=== PATIENT | male | born 1955 | race Caucasian/White ===

== ENCOUNTER → 2020-12-08 | Outpatient (CLI) | payer MEDICARE, BC ==
[2020-12-08 14:01] LABS: Basophils % (A) 0 %; Eosinophils # (A) 0.2 k/uL (0-0.7); Eosinophils % (A) 3 %; HCT 44.2 % (39.0-53.0); HGB 14.5 gm/dL (13.0-17.5); Lymphocytes % (A) 17 %; MCH 30.2 pg (25.0-35.0); MCHC 32.7 g/dL (31.0-37.0); MCV 92.3 fL (80.0-100.0); Mean Platelet Volume 8.9; Monocytes # (A) 0.5 k/uL (0-1.0); Monocytes % (A) 8 %; Neutrophils # (A) 4.3 k/uL (1.3-7.7); Neutrophils % (A) 69 %; Platelet Count 189 k/uL (150-450); RBC 4.79 m/uL (4.30-5.90); RDW 13.5 % (11.5-15.5); WBC 6.2 k/uL (3.8-10.6)
[2020-12-08 14:02] LABS: ALT 29 U/L (4-49); AST 32 U/L (17-59); African American GFR (CKD) >90 (>60 ml/min/1.73 sqM); Albumin 4.3 g/dL (3.5-5.0); Alkaline Phosphatase 128 U/L (38-126); Anion Gap 9 mmol/L; Blood Urea Nitrogen 9 mg/dL (9-20); Calcium 9.9 mg/dL (8.4-10.2); Carbon Dioxide 29 mmol/L (22-30); Chloride 101 mmol/L (98-107); Glucose 112 mg/dL (74-99); Non-African American GFR(CKD) 87 (>60 ml/min/1.73 sqM); Potassium 5.4 mmol/L (3.5-5.1); Sodium 139 mmol/L (137-145); Total Protein 7.6 g/dL (6.3-8.2)
[2020-12-08 14:39] LABS: Cholesterol 183 mg/dL (<200); HDL Cholesterol 45 mg/dL (40-60); LDL Cholesterol,Calculated 126 mg/dL (0-99); Triglycerides 59 mg/dL (<150)
--- NOTE | 2020-12-08 14:39 | CT ---
EXAMINATION TYPE: CT chest w con DATE OF EXAM: 12/08/2020 COMPARISON: NONE HISTORY: Abnormal chest xray and shortness of breath upon exertion. Hx of renal cell cancer. CT DLP: 288.1 mGycm. Automated Exposure Control for Dose Reduction was Utilized. TECHNIQUE: CT scan of the thorax is performed following with IV Contrast, patient injected with 100m l mL of Isovue 300. FINDINGS: LUNGS: There is background Mild to moderate underlying emphysematous change. There is small left pleu ral effusion. There is tiny right pleural effusion. There is right-sided volume loss with abrupt occl usion of the bronchus intermedius coronal image 52 corresponding to axial image 29. Distal to this th ere is heterogeneous soft tissue encasing the right lower lobe medial arterial branch with posterior- inferior extensive atelectatic change. There is suspected obstructing endobronchial mass. There is ab normal soft tissue encasing the mid to distal esophagus axial image 30 extending to the right margin of the descending thoracic aorta. Small air-fluid level in the esophagus image 33 noted. Suspect flui d trapped in the shoulder or pseudomass posterior right lower lung coronal image 68 measuring 5.5 x 2 .9 cm. Small posterior right apical pleural fluid collection. Moderate to severe right apical pleural /parenchymal scarring or scarlike lesion measuring 3.5 x 1.6 cm axial image 12. MEDIASTINUM: There are prominent but subcentimeter left hilar lymph nodes. No abnormal mediastinal adenopathy at or above the jennifer No pericardial effusion is seen. Cardiomegaly. Coronary artery lacie cification. OTHER: Nonspecific slight thickening to both adrenal glands. There is 5 mm calculus lower pole right kidney axial image 67 partially imaged. Osseous structures are demineralized with underlying scoliosi s. Mild to moderate chronic compression type fractures at T9 and T6 levels. IMPRESSION: Right-sided volume loss with abrupt bronchus intermedius occlusion, obstructing endobronc hial mass or neoplasm needs to be strongly considered. There may be mediastinal invasion surrounding portions of the esophagus or continuity of primary esophageal lesion or neoplasm. Former is favored. Background mild to moderate underlying emphysematous change. Small to tiny bilateral pleural fluid c ollections. Underlying cardiomegaly. Further investigation with PET CT and/or bronchoscopy for tissue sampling is advised.
[2020-12-08 23:57] LABS: Prostate Specific Antigen 2.3 ng/mL (0.0-4.5)
== END ==
LOC: RADCTMAIN 13:27
PROVIDERS: ATTEND Nurse Practitioner
DX: Z08 Encounter for follow-up examination after completed treatment for malignant neoplasm (principal); Z85.118 Personal history of other malignant neoplasm of bronchus and lung; Z85.53 Personal history of malignant neoplasm of renal pelvis; J43.9 Emphysema, unspecified; J90 Pleural effusion, not elsewhere classified; I51.7 Cardiomegaly; R07.89 Other chest pain
CPT/HCPCS: 84153; 80061; 80053; 84443; 85025; 71260; Q9967

== ENCOUNTER → 2020-12-16 | Outpatient (CLI) | payer MEDICARE, BC ==
--- NOTE | 2020-12-18 08:43 | PE ---
EXAMINATION TYPE: PET CT fusion skull to thigh DATE OF EXAM: 12/16/2020 COMPARISON: Chest CT December 08, 2020 HISTORY: History of right lung cancer treated [address] TECHNIQUE: Following the intravenous administration of 10.97 mCi of F-18 FDG, whole body images are performed from the skull base to the midthigh. Images are reviewed on the computer in the coronal, a xial, and sagittal planes. Reconstructed rotating images are created on independent workstation and reviewed on the computer. A localization and attenuation correction CT is performed in conjunction with the PET scan. Blood glucose level equals 95 SCAN: Initial Scan FINDINGS: SKULL BASE AND NECK: Mild uptake anterior left tongue base axial image 38, max SUV 3.02. Mild hyperm etabolic uptake just superior to this left oropharynx were there is some increased soft tissue and ca lcification axial image 34, max SUV 3.15. ENT follow-up and direct visualization is advised to rule o ut incidental neoplasm at this level. CHEST, MEDIASTINUM, AND HILAR REGION: Background mild to moderate underlying emphysematous change red emonstrated. Interval resolution of small left pleural effusion. Persistent small tiny right pleural effusion with medial basilar atelectatic change and/or consolidation extending from right hilum. Pers istent trapped fluid in right lung fissure axial image 99. Persistent abrupt occlusion right bronchus intermedius axial image 89. Abnormal soft tissue surrounding distal esophagus with air-fluid level w ithout abnormal hypermetabolic uptake. There is no distinct fat plane from this and the adjacent righ t medial basilar obstructive atelectasis and/or possible underlying endobronchial lesion. Persistent right-sided volume loss and mediastinal shift. No areas of abnormal hypermetabolic uptake. ABDOMEN AND PELVIS: Mild hypermetabolic uptake in the region of caudate lobe axial image 125 appears may be contiguous with liver, abnormal lymph node at this level suspected. Area of concern measures 2 .1 x 1.3 cm corresponding to axial image 54 series 4, max SUV less than 2.5. Normal excretion. No additional areas of abnormal hypermetabolic uptake. OSSEOUS STRUCTURES: No areas of abnormal hypermetabolic uptake. OTHER CT: Mild to moderate coronary artery calcification is present. A 6 mm nonobstructing calculus right kidney excellent 151 is redemonstrated lower pole level. Mild/mo derate calcified plaque of the aorta extends into branch vessels. Mildly enlarged prostate consistent with BPH. Slight scoliotic curvature. IMPRESSION: 1. Attention to left tongue base and oropharynx, ENT follow-up advised for direct visualization. 2. Despite lack of significant hypermetabolic uptake in the thorax concerning findings are present. P ersistent endobronchial occlusion with right-sided volume loss. Persistent abnormal soft tissue in th e mediastinum. Suspicious upper abdominal lymph node gastrohepatic region. Advise further investigati on with bronchoscopy and endoscopy to further assess for neoplasm.
== END ==
LOC: RADPETMAIN 10:32
PROVIDERS: ATTEND Family Medicine
DX: C34.81 Malignant neoplasm of overlapping sites of right bronchus and lung (principal); R93.5 Abnormal findings on diagnostic imaging of other abdominal regions, including retroperitoneum
CPT/HCPCS: 78815; A9552

== ENCOUNTER → 2021-04-19 | Outpatient (CLI) | payer MEDICARE, BC ==
[2021-04-19 13:40] LABS: African American GFR (CKD) >90 (>60 ml/min/1.73 sqM); Blood Urea Nitrogen 12 mg/dL (9-20); Non-African American GFR(CKD) >90 (>60 ml/min/1.73 sqM)
--- NOTE | 2021-04-19 14:20 | CT ---
EXAMINATION TYPE: CT chest abdomen w con DATE OF EXAM: 04/19/2021 COMPARISON: 12/08/20 HISTORY: SOB, hx of lung ca CT DLP: 473.1 mGycm CONTRAST: CT scan of the chest and abdomen is performed with Oral Contrast and with IV Contrast, patient inject ed with 100 mL of Isovue 300. CT Chest: LUNGS: Medial right infrahilar mass is redemonstrated which abruptly interrupts the bronchus intermedius. Th ere is also post obstructive volume loss right lower lobe which is unchanged relative to the prior st udy. There is associated soft tissue surrounding the adjacent esophagus which could reflect tumoral e ncasement. Right apical parenchymal scar or additional mass is stable. Hyperinflation of the left manny g. MEDIASTINUM: Thoracic aorta is of normal caliber. The heart is not enlarged. No evidence for media stinal mass or adenopathy. HILAR STRUCTURES: No evidence for mass. No hilar adenopathy is appreciated. OTHER: No significant abnormality. CONTRAST CT ABDOMEN AND PELVIS FINDINGS: LIVER/GB: No calcified gallstones. No space occupying hepatic lesion. Biliary tree is of normal ca liber. PANCREAS: No inflammation. No distinct mass. SPLEEN: No splenic enlargement. No lesion seen. ADRENALS: No nodule. No thickening. KIDNEYS/BLADDER: No hydronephrosis. 5 mm calculus lower pole right kidney. No additional calculi see n. No distinct renal mass. BOWEL: Visualized bowel loops are of normal caliber. LYMPH NODES: 1.7 cm lymph node adjacent to the caudate lobe of the liver. No additional adenopathy ap preciated. AORTA: No significant abnormality. OSSEOUS STRUCTURES: No significant abnormality is seen. OTHER: No significant additional abnormality is seen. IMPRESSION: 1. Essentially stable right infrahilar mass with the right lower lobe postobstructive volume loss. En casement of the adjacent esophagus unchanged. Right apical parenchymal scar or additional mass lesion is also stable.
== END | disposition home or self-care (01) ==
LOC: RADCTMAIN 12:54
PROVIDERS: ATTEND Internal Medicine Hematology & Oncology
DX: C34.31 Malignant neoplasm of lower lobe, right bronchus or lung (principal); N20.0 Calculus of kidney
CPT/HCPCS: 82565; 84520; 71260; 74160; 36415; Q9967

== ENCOUNTER → 2021-08-22 | Outpatient (CLI) | payer MEDICARE, BC ==
[2021-08-22 11:31] LABS: African American GFR (CKD) >90 (>60 ml/min/1.73 sqM); Blood Urea Nitrogen 12 mg/dL (9-20); Non-African American GFR(CKD) 87 (>60 ml/min/1.73 sqM)
--- NOTE | 2021-08-22 13:06 | CT ---
EXAMINATION TYPE: CT ChestAbdPelvis w con DATE OF EXAM: 08/22/2021 COMPARISON: 04/19/2021, 12/16/2020 HISTORY: 66-year-old male C34.90, Lung Cancer TECHNIQUE: Contiguous axial scanning of the chest, abdomen, and pelvis performed with IV Contrast, pa tient injected with 100 ml mL of Isovue 300. Delayed images through the kidneys were obtained. Puga l/sagittal reconstructions performed. CT DLP: 609.20 mGycm Automated exposure control for dose reduction was used. FINDINGS: CHEST: The heart is mildly enlarged without pericardial effusion. Borderline ectasia aortic root at 3.5 cm. Conventional arch vessel branching anatomy. Borderline caliber to the main right and left pulmonary arteries and 2.5 cm each suggesting underlyin g pulmonary hypertension. Redemonstrated cut off of the right bronchus base Raegan incomplete volume loss in the right lower lob e. Redemonstrated adjacent thickening and ipsilateral deviation of the mid esophagus. Increasing small right pleural effusion and new small left pleural effusion. Stable soft tissue thickening at the right apex. Moderate upper lung predominant centrilobular emphys rosmery. 6 mm lateral right midlung pulmonary nodule remains unchanged. No progressive thoracic lymphadenopathy identified. Some increasing interstitial changes in the right mid and lower lung. ABDOMEN: Stable 7 mm hypodensity posterior right liver lobe. No other focal liver lesion seen. Portal venous s ystem is patent. No biliary ductal dilatation. Gallbladder, adrenal glands, left kidney, spleen, pancreas show no gross abnormality. Gastrohepatic ligament region lymph node is stable at 2.6 x 1.9 cm. Cortical defect upper pole right kidney suggesting prior vascular or infectious insult. Nonobstructiv e 5 mm right renal calculus. Small retroperitoneal lymph nodes measuring up to 6 mm unchanged. Mild atelectatic calcifications inf rarenal abdominal aorta and iliac arteries. No dilated small bowel, free fluid, or free air. Oral contrast progressed into the splenic flexure of the colon. Mild stool burden. Redundant sigmoid colon extending to the left upper quadrant. No pericolic inflammatory change. PELVIS: Bladder is urine distended. Prostate gland enlargement 5.0 cm wide. A couple left-sided pelvic phlebo liths. No abnormal fluid collection in the pelvis or pelvic lymphadenopathy. BONES: Mild degenerative changes of hips. Degenerative bony ankylosis of the SI joints. Abnormal sclerosis o f the T8 vertebral body has developed new since 12/08/2020 but was present on 04/19/2021. Endplate defor mities T6, T7, T9 are unchanged. IMPRESSION: 1. REDEMONSTRATED CUT OFF OF THE RIGHT BRONCHUS BASALIS WITH COMPLETE CONSOLIDATION AN VOLUME LOSS OF THE RIGHT LOWER LOBE. ADJACENT ENCASEMENT WITH THICKENING OF THE MID THORACIC ESOPHAGUS IS ALSO UNCH ANGED. RIGHT APICAL PLEURAL PARENCHYMAL SCARRING VERSUS SOFT TISSUE THICKENING UNCHANGED. 6 MM RIGHT MIDLUNG PULMONARY NODULE UNCHANGED. 2.6 CM GASTROHEPATIC LIGAMENT LYMPH NODE UNCHANGED. 2. SMALL RIGHT PLEURAL EFFUSION SLIGHTLY INCREASED AND NEW SMALL LEFT PLEURAL EFFUSION. GIVEN SOME IN CREASING INTERSTITIAL CHANGES ON THE RIGHT, CORRELATE TO EXCLUDE MILD PULMONARY VASCULAR CONGESTION. 3. REDEMONSTRATED T8 VERTEBRAL BODY SCLEROSIS. UNCHANGED FROM 04/19/2021 BUT NEW FROM 12/08/2020. POSSIB LE HEALING CHANGE OF A PREVIOUSLY OCCULT OSSEOUS METASTASIS. 4. COPD WITH MODERATE EMPHYSEMA, 5 MM RIGHT RENAL CALCULUS, AND PROSTATOMEGALY AT 5.0 CM WIDE.
== END | disposition home or self-care (01) ==
LOC: RADCTMAIN 10:39
PROVIDERS: ATTEND Internal Medicine Hematology & Oncology
DX: C34.90 Malignant neoplasm of unspecified part of unspecified bronchus or lung (principal); J90 Pleural effusion, not elsewhere classified; J43.9 Emphysema, unspecified
CPT/HCPCS: 82565; 84520; 71260; 74177; 36415; Q9967

== ENCOUNTER → 2021-12-12 | Outpatient (CLI) | payer MEDICARE, BC ==
[2021-12-12 14:37] LABS: HCT 45.5 % (39.6-50.0); HGB 14.7 g/dL (13.0-17.0); MCHC 32.3 g/dL (32.0-37.0); MCV 92.9 fL (80.0-97.0); Mean Platelet Volume 11.9 fL (9.5-12.2); NRBC Per 100 WBC 0 /100 WBCS (0.0-0.0); Platelet Count 157 X 10*3/uL (140-440); RDW 13.4 % (11.5-14.5); WBC 7.15 X 10*3/uL (4.50-10.00)
[2021-12-12 16:31] LABS: African American GFR (CKD) 84.3 (60.0-200.0); Anion Gap 13.8 mmol/L (10.00-18.00); Blood Urea Nitrogen 11.3 mg/dL (9.0-27.0); Carbon Dioxide 26.8 mmol/L (20.0-27.5); Non-African American GFR(CKD) 72.8 (60.0-200.0); Potassium 4.5 mmol/L (3.5-5.5)
== END | disposition home or self-care (01) ==
LOC: LABPAT 09:59
PROVIDERS: ATTEND Internal Medicine Interventional Cardiology
DX: Z01.812 Encounter for preprocedural laboratory examination (principal); I35.1 Nonrheumatic aortic (valve) insufficiency
CPT/HCPCS: 36415; 80051; 82565; 84520; 85027

== ENCOUNTER 2021-12-19 11:42 | Day surgery (SDC) | payer MEDICARE, BC ==
[2021-12-18 09:08] VITALS: BMI 24.4
[~2021-12-19 11:42] MED LIST: ALPRAZolam 0.25 MG TAB PO PRN; ALPRAZolam 0.5 MG TAB PO PRN; ASPIRIN 325 MG TAB PO STA; ATORVASTATIN 80 MG TAB PO STA; HEPARIN SODIUM,PORCINE 10,000 UNIT in SODIUM CHLORIDE 0.9% 1,000 ML IRRIGATION PRN; HEPARIN SODIUM,PORCINE 2,500 UNIT in SODIUM CHLORIDE 0.9% 250 ML IRRIGATION PRN; NITROGLYCERIN SL TABS 0.4 MG TAB SUBLINGUAL PRN; SODIUM CHLORIDE 0.9% 1,000 ML in EMPTY BAG 1 BAG IV SCH
[2021-12-19] MEDS ORDERED: SODIUM CHLORIDE 0.9% 1,000 ML IV ONE (12:07)
[2021-12-19] MEDS ORDERED: fentaNYL (PF) 50 MCG/ML 2 ML AMP ONE (12:28)
[2021-12-19 12:32] VITALS: TEMP 98.4
[2021-12-19] MEDS ORDERED: BENZOCAINE SPRAY 1 CAN TOPICAL ONE (12:32)
[2021-12-19] MEDS ORDERED: fentaNYL (PF) 50 MCG/ML 2 ML AMP IV ONE (12:34)
[2021-12-19] MEDS ORDERED: MIDAZOLAM 2 MG/2 ML VIAL IV ONE ×2 (12:35→12:36)
[2021-12-19] MEDS ORDERED: IV FLUID CONTINUATION 600 ML IV ONE (12:50)
[2021-12-19] MEDS ORDERED: HEPARIN SODIUM 1,000 UN/ML (10ML VL) ONE (12:50)
[2021-12-19] MEDS ORDERED: LIDOCAINE 1% INJ 10MG/ML (20 ML MDV) ONE (12:51)
[2021-12-19] MEDS ORDERED: VERAPAMIL 2.5 MG/ML 2 ML AMP ONE (12:51)
--- NOTE | 2021-12-19 12:53 | P.PCN ---
Date of Procedure: 12/19/21 Operative Findings: TRANSESOPHAGEAL ECHOCARDIOGRAM ELIGIBILITY EXAMINER: SHANTANU SINGH MD, RPVI INDICATION: Mitral regurgitation aortic stenosis SEDATION: Conscious sedation COMPLICATION: None LEVEL OF SEDATION Moderate with sedation mitral and PROCEDURE DESCRIPTION: After obtaining an informed consent, the patient was brought to transesophageal echocardiogram room. Pulse oximetry and heart monitors were attached to the patient. The patient throat was sprayed using lidocaine. The patient was turned into left lateral position. After that a bite guard was placed. After an appropriate conscious sedation was initiated, the transesophageal echocardiogram was attempted to be advanced to the mid esophageal but there was resistance likely related to esophageal stricture and because of that the procedure was aborted. No complication noted CONCLUSION: 1. Attempted transesophageal echocardiogram was performed
[2021-12-19] MEDS ORDERED: LIDOCAINE 1% INJ 10MG/ML (20 ML MDV) IV ONE (12:58)
[2021-12-19 12:59] VITALS: RESP 16
[2021-12-19] MEDS ORDERED: VERAPAMIL SYRINGE (5 MG/10 ML) INTRAARTER ONE (12:59)
[2021-12-19] MEDS ORDERED: HEPARIN SODIUM 1,000 UN/ML (10ML VL) IV ONE (13:03)
[2021-12-19] MEDS ORDERED: RX INFO: IV CONTRAST WAS GIVEN 1 EACH MISC MISCELLANE PRN (13:22)
[2021-12-19] MEDS ORDERED: IOPAMIDOL-370 125ML BTL INJ ONE (13:24)
--- NOTE | 2021-12-19 13:26 | P.PCN ---
Date of Procedure: 12/19/21 Operative Findings: CARDIAC CATHETERIZATION PERFORMING PHYSICIAN: Angel Oliva MD, RPVI PROCEDURE PERFORMED: 1. Selective right and left coronary angiogram INDICATION: Shortness of breath and 66-year-old gentleman who underwent myocardial perfusion imaging stress test revealed anterior ischemia COMPLICATION: None APPROACH: Right radial artery LEVEL OF SEDATION: Moderate with a sedation length of 18 minutes PROCEDURE DESCRIPTION: After obtaining an informed consent, the patient was brought to cardiac ballistics laboratory gunsmith. Local anesthesia was performed using lidocaine subcutaneously. The right radial artery was cannulated using Seldinger technique, the guidewire passed easily, following that we advanced a 5-Slovenian sheath dilator assembly, the wire and dilator were removed and sheath was flushed. Following that, 2 mg of verapamil along with 5000 unit heparin were given. Selective right and left coronary angiogram using a 6-Slovenian JR4 and JL 3.5 catheters. The procedure was completed there was no complication. SELECTIVE CORONARY ANGIOGRAM: The right coronary artery: Is a large caliber vessel and a dominant vessel. The RCA is diffusely diseased up to about 60% in the mid to distal portion. Left main: Has what it seems to be an ulcerated plaque but otherwise hemodynamically there is no significant disease noted. The left circumflex: Is a moderate caliber vessel nondominant vessel. The left circumflex proximally appears to have mild disease only. Gives rise into the first OM branch which appears to be a small caliber vessel was mild disease only. Distally the left circumflex has also mild disease only and gives rise into a second point branch which appeared to be angiographically normal. The left anterior descending artery: It is a large caliber vessel. The proximal LAD appeared to be angiographically normal. Gives rise into a large diagonal branch which appeared to have mild disease only. The mid LAD and distal LAD has 2 discrete lesions appears to be in the range of 70%. The LAD does reach the apex. CONCLUSION: 1. Calcified right and left coronary system 2. Intermediate to severe lesion involving the mid to distal RCA 3. Possible ulcerated plaque versus healed dissection involving the left main 4. Severe disease involving the mid LAD POSTPROCEDURE MANAGEMENT: More information to assess the severity of MR beside CHINO which was attempted today. Probably getting cardiac MRI Further recommendation to follow that interim of revascularization depends on the severity of the MRI
[2021-12-19] MEDS ORDERED: SODIUM CHLORIDE 0.9% 1,000 ML IV SCH (13:30)
[2021-12-19 17:13] VITALS: BP 100/62; PULSE 98
== END 2021-12-19 17:31 | disposition home or self-care (01) ==
LOC: CATHCVL 11:42
PROVIDERS: ATTEND Internal Medicine Interventional Cardiology
DX: I25.110 Atherosclerotic heart disease of native coronary artery with unstable angina pectoris (principal); I25.84 Coronary atherosclerosis due to calcified coronary lesion; R94.39 Abnormal result of other cardiovascular function study; I08.0 Rheumatic disorders of both mitral and aortic valves; I42.9 Cardiomyopathy, unspecified; Z53.8 Procedure and treatment not carried out for other reasons; F17.210 Nicotine dependence, cigarettes, uncomplicated; Z85.118 Personal history of other malignant neoplasm of bronchus and lung; R60.0 Localized edema; Z79.899 Other long term (current) drug therapy
CPT/HCPCS: 93312; 93454; 87635; C1769; C1894; J2250; J2001; J3010; J1644; Q9967

== ENCOUNTER 2021-12-28 20:49 | Inpatient (IN) | payer MEDICARE, BC ==
[2021-12-28] MEDS ORDERED: IPRATROPIUM-ALBUTEROL 3 ML NEB INHALATION STA (21:44)
[2021-12-28] MEDS ORDERED: SODIUM CHLORIDE 0.9% 1,000 ML IV STA (21:44)
[2021-12-28 22:13] LABS: Basophils % (A) 0 %; Eosinophils # (A) 0.1 k/uL (0-0.7); Eosinophils % (A) 1 %; HCT 47.4 % (39.0-53.0); HGB 16.5 gm/dL (13.0-17.5); Lymphocytes # (A) 0.9 k/uL (1.0-4.8); Lymphocytes % (A) 8 %; MCH 31.8 pg (25.0-35.0); MCHC 34.8 g/dL (31.0-37.0); MCV 91.2 fL (80.0-100.0); Mean Platelet Volume 10.4; Monocytes # (A) 0.9 k/uL (0-1.0); Monocytes % (A) 8 %; Neutrophils # (A) 9.4 k/uL (1.3-7.7); Neutrophils % (A) 82 %; Platelet Count 148 k/uL (150-450); RBC 5.19 m/uL (4.30-5.90); WBC 11.5 k/uL (3.8-10.6)
[2021-12-28 22:23] LABS: INR 1.4 (<1.2); Partial Thromboplastin Time 25.9 sec (22.0-30.0); Prothrombin Time 14.4 sec (9.0-12.0)
[2021-12-28 22:24] LABS: Albumin 4.8 g/dL (3.5-5.0); Calcium 9.7 mg/dL (8.4-10.2); Magnesium 1.9 mg/dL (1.6-2.3); Potassium 5.2 mmol/L (3.5-5.1); Total Bilirubin 3.2 mg/dL (0.2-1.3); Total Protein 8.4 g/dL (6.3-8.2)
--- NOTE | 2021-12-28 22:33 | ED ---
SOB HPI - General Chief Complaint: Shortness of Breath Stated Complaint: Shortness of Breath, Possible reaction to meds Time Seen by Provider: 12/28/21 21:43 Source: patient, RN notes reviewed, old records reviewed Mode of arrival: wheelchair Limitations: no limitations - History of Present Illness Initial Comments: This is a 66-year-old male to the emergency department for evaluation today. Presents today for evaluation of shortness of breath especially with exertion. Patient does have history of CHF and heart disease recently here for the same is scheduled to have either stents placed or heart surgery in the coming time. Patient has no other complaints no new chest pain just increasing shortness of breath especially with exertion. The patient tried to sleep tonight he cannot lay down flat he cannot sleep. MD Complaint: shortness of breath -: week(s) Severity: moderate Severity scale (1-10): 6 Quality: dull Consistency: constant Improves With: rest Worsens With: exertion, movement Known History Of: congestive heart failure Context: anxiety, recent illness Associated Symptoms: lower extremity pain (And swelling), palpitations Treatments Prior to Arrival: none - Related Data Home Medications Medication Instructions Recorded Confirmed No Known Home Medications 12/28/21 12/28/21 Allergies Allergy/AdvReac Type Severity Reaction Status Date / Time No Known Allergies Allergy Verified 12/28/21 22:40 Review of Systems ROS Statement: Those systems with pertinent positive or pertinent negative responses have been documented in the HPI. ROS Other: All systems not noted in ROS Statement are negative. Past Medical History Past Medical History: Coronary Artery Disease (CAD), Cancer, Heart Failure, Hyperlipidemia Additional Past Medical History / Comment(s): lung cancer- 14 yrs ago Past Surgical History: Orthopedic Surgery Past Psychological History: No Psychological Hx Reported Smoking Status: Never smoker Past Alcohol Use History: None Reported Past Drug Use History: None Reported General Exam Limitations: no limitations General appearance: alert, in no apparent distress Head exam: Present: atraumatic, normocephalic, normal inspection Eye exam: Present: normal appearance, PERRL, EOMI. Absent: scleral icterus, conjunctival injection, periorbital swelling ENT exam: Present: normal exam, mucous membranes moist Neck exam: Present: normal inspection. Absent: tenderness, meningismus, lymphadenopathy Respiratory exam: Present: normal lung sounds bilaterally. Absent: respiratory distress, wheezes, rales, rhonchi, stridor Cardiovascular Exam: Present: regular rate, normal rhythm, normal heart sounds. Absent: systolic murmur, diastolic murmur, rubs, gallop, clicks GI/Abdominal exam: Present: soft, normal bowel sounds. Absent: distended, tenderness, guarding, rebound, rigid Extremities exam: Present: normal inspection, full ROM, normal capillary refill. Absent: tenderness, pedal edema, joint swelling, calf tenderness Back exam: Present: normal inspection Neurological exam: Present: alert, oriented X3, CN II-XII intact Psychiatric exam: Present: normal affect, normal mood Skin exam: Present: warm, dry, intact, normal color. Absent: rash Course Vital Signs 12/28/21 12/28/21 12/28/21 21:02 21:44 22:08 Temperature 98.0 F Pulse Rate 95 96 89 Respiratory 26 H 18 18 Rate Blood Pressure 106/68 114/76 114/76 O2 Sat by Pulse 96 97 99 Oximetry 12/28/21 12/28/21 12/28/21 22:20 22:40 22:52 Temperature Pulse Rate 94 92 Respiratory 18 Rate Blood Pressure O2 Sat by Pulse Oximetry - Reevaluation(s) Reevaluation #1: 12/29/21 06:10 Medical record is reviewed Reevaluation #2: 12/29/21 06:10 Patient family informed of results and questions answered Patient reevaluated without abdominal pain Reevaluation #3: 12/29/21 06:10 Patient symptoms are improved here in the ER - Consultations Consultation #1: Spoke with FRANCIA to agrees to admit this patient Medical Decision Making - Medical Decision Making 66 male DF for evaluation of weakness and shortness of breath. Patient does have pleural effusion pulmonary edema with CHF on x-ray also has some congestion of the liver could be possible cholecystitis or gallbladder disease. Patient on surgical consult. Patient can be admitted for further evaluation management - Lab Data Result diagrams: 12/28/21 21:56 12/28/21 21:56 Lab Results 12/28/21 12/28/21 12/28/21 Range/Units 21:56 21:56 21:56 WBC 11.5 H (3.8-10.6) k/uL RBC 5.19 (4.30-5.90) m/uL Hgb 16.5 (13.0-17.5) gm/dL Hct 47.4 (39.0-53.0) % MCV 91.2 (80.0-100.0) fL MCH 31.8 (25.0-35.0) pg MCHC 34.8 (31.0-37.0) g/dL RDW 13.0 (11.5-15.5) % Plt Count 148 L (150-450) k/uL MPV 10.4 Neutrophils % 82 % Lymphocytes % 8 % Monocytes % 8 % Eosinophils % 1 % Basophils % 0 % Neutrophils # 9.4 H (1.3-7.7) k/uL Lymphocytes # 0.9 L (1.0-4.8) k/uL Monocytes # 0.9 (0-1.0) k/uL Eosinophils # 0.1 (0-0.7) k/uL Basophils # 0.0 (0-0.2) k/uL PT 14.4 H (9.0-12.0) sec INR 1.4 H (<1.2) APTT 25.9 (22.0-30.0) sec Sodium 125 L (137-145) mmol/L Potassium 5.2 H (3.5-5.1) mmol/L Chloride 90 L (98-107) mmol/L Carbon Dioxide 21 L (22-30) mmol/L Anion Gap 14 mmol/L BUN 45 H (9-20) mg/dL Creatinine 1.25 (0.66-1.25) mg/dL Est GFR (CKD-EPI)AfAm 69 (>60 ml/min/1.73 sqM) Est GFR (CKD-EPI)NonAf 60 (>60 ml/min/1.73 sqM) Glucose 147 H (74-99) mg/dL Calcium 9.7 (8.4-10.2) mg/dL Magnesium 1.9 (1.6-2.3) mg/dL Total Bilirubin 3.2 H (0.2-1.3) mg/dL AST 578 H (17-59) U/L ALT 527 H (4-49) U/L Alkaline Phosphatase 186 H (38-126) U/L Troponin I (0.000-0.034) ng/mL NT-Pro-B Natriuret Pep pg/mL Total Protein 8.4 H (6.3-8.2) g/dL Albumin 4.8 (3.5-5.0) g/dL 12/28/21 12/28/21 Range/Units 21:56 21:56 WBC (3.8-10.6) k/uL RBC (4.30-5.90) m/uL Hgb (13.0-17.5) gm/dL Hct (39.0-53.0) % MCV (80.0-100.0) fL MCH (25.0-35.0) pg MCHC (31.0-37.0) g/dL RDW (11.5-15.5) % Plt Count (150-450) k/uL MPV Neutrophils % % Lymphocytes % % Monocytes % % Eosinophils % % Basophils % % Neutrophils # (1.3-7.7) k/uL Lymphocytes # (1.0-4.8) k/uL Monocytes # (0-1.0) k/uL Eosinophils # (0-0.7) k/uL Basophils # (0-0.2) k/uL PT (9.0-12.0) sec INR (<1.2) APTT (22.0-30.0) sec Sodium (137-145) mmol/L Potassium (3.5-5.1) mmol/L Chloride (98-107) mmol/L Carbon Dioxide (22-30) mmol/L Anion Gap mmol/L BUN (9-20) mg/dL Creatinine (0.66-1.25) mg/dL Est GFR (CKD-EPI)AfAm (>60 ml/min/1.73 sqM) Est GFR (CKD-EPI)NonAf (>60 ml/min/1.73 sqM) Glucose (74-99) mg/dL Calcium (8.4-10.2) mg/dL Magnesium (1.6-2.3) mg/dL Total Bilirubin (0.2-1.3) mg/dL AST (17-59) U/L ALT (4-49) U/L Alkaline Phosphatase (38-126) U/L Troponin I 0.031 (0.000-0.034) ng/mL NT-Pro-B Natriuret Pep 54792 pg/mL Total Protein (6.3-8.2) g/dL Albumin (3.5-5.0) g/dL - EKG Data -: EKG Interpreted by Me (EKG is sinus of 93 NV 28 QRS 151 QTC 420) - Radiology Data Radiology results: report reviewed (Chest x-ray shows positive pleural effusion CHF ultrasound gallbladder does show possible cholecystitis), image reviewed Disposition Clinical Impression: Congestive heart failure, Acute pulmonary edema, Weakness, Transaminitis, Pleural effusion, right Narrative: Cholecystitis?? Disposition: ADMITTED IP TO THIS HOSP Condition: Fair Is patient prescribed a controlled substance at d/c from ED?: No
--- NOTE | 2021-12-28 22:55 | XR ---
EXAMINATION TYPE: XR chest 2V DATE OF EXAM: 12/28/2021 COMPARISON: NONE HISTORY: Short of breath TECHNIQUE: 2 view FINDINGS: There is some blunting of the right costophrenic angle. Heart is enlarged. Thoracic aorta i s atheromatous. There are chest leads. There is some osteopenia. There is mild thoracic kyphotic defo rmity and anterior wedging in the mid thoracic spine. IMPRESSION: There is right pleural effusion. Cardiomegaly. Minimal heart failure is possible.
--- NOTE | 2021-12-29 00:21 | US ---
EXAMINATION TYPE: US gallbladder DATE OF EXAM: 12/28/2021 COMPARISON: CT 2020 CLINICAL HISTORY: pain. Patient had abdominal pain 2 days ago; thinks he may have had a reaction to h is medication EXAM MEASUREMENTS: Liver Length: 15.5 cm Gallbladder Wall: 0.52 cm CBD: 0.52 cm Right Kidney: 8.1 x 3.3 x 4.2 cm Pancreas: Obscured by bowel gas Liver: Appears slightly heterogenous Gallbladder: Thickened wall; multiple hyperechoic wall projections; likely polyps. Evidence for sonographic Conley's sign: No CBD: wnl Right Kidney: Lower pole echogenic focus with twinkle artifact 0.8 cm IMPRESSION: Mild gallbladder wall thickening. There is probably some nonshadowing stones or gallbladd er polyps.
[2021-12-29] MEDS ORDERED: NALOXONE 0.4 MG/ML 1 ML VIAL IV PRN (00:40)
[2021-12-29] MEDS ORDERED: ONDANSETRON 4 MG/2 ML VIAL IVP PRN (00:40)
[2021-12-29] MEDS ORDERED: MORPHINE SULFATE 4 MG/ML SYRINGE IV PRN (00:40)
--- NOTE | 2021-12-29 11:46 | P.GSCN ---
History of Present Illness Consult date: 12/29/21 History of present illness: CHIEF COMPLAINT: Shortness of breath HISTORY OF PRESENT ILLNESS: This is a 66-year-old male who was seen in the emergency room. He came into the ER due to worsening shortness of breath with exertion. He does have a history of CHF, a bad heart valve and coronary artery disease. Patient states she is undergoing workup for possible stent as well as possible surgery on his heart valve. Patient also reports a decreased appetite and having abdominal bloating for the last 2 days. He did have one episode of vomiting the other day. Patient had abdominal ultrasound completed that did reveal mild gallbladder wall thickening. There is probably some non-shadowing stones or gallbladder polyps. Patient does report some mild discomfort in the right upper quadrant after eating. Denies any fever chills or sweats. Denies any change in bowel habits. Patient also has a prior history of lung cancer diagnosed 14 years ago and had undergone chemoradiation treatment. Denies any pressure to goal history on the abdomen. PAST MEDICAL HISTORY: See list. PAST SURGICAL HISTORY: See list. MEDICATIONS: See list. ALLERGIES: See list. SOCIAL HISTORY: No illicit drug use. Patient quit smoking 14 years ago. Reports occasional alcohol use. REVIEW OF SYSTEMS: CONSTITUTIONAL: Denies fever or chills. HEENT: Denies blurred vision, vision changes, or eye pain. Denies hemoptysis ENDOCRINE: Denies heat or cold intolerance. CARDIOVASCULAR: Denies chest pain or pressure. RESPIRATORY: No shortness of breath. GASTROINTESTINAL: Please refer to HPI NEURO: Denies history of seizures. PSYCH: No depression or suicidal ideation HEMATOLOGIC: Denies bleeding disorders. LYMPHATIC: The patient denies any lumps and bumps around the neck. GENITOURINARY: Denies any blood in urine or increased urinary frequency. MUSCULOSKELETAL: Denies myalgias. Denies joint swelling. Denies decreased range of motion beyond patients baseline. SKIN: Denies pruitis. Denies rash. PHYSICAL EXAM: VITAL SIGNS: Reviewed GENERAL: Well-developed in no acute distress. HEENT: No sclera icterus. Extraocular movements grossly intact. Moist buccal mucosa. Head is atraumatic, normocephalic. Hears conversational speech. No nasal drainage. NECK: Supple without lymphadenopathy. CHEST: Non-labored respirations and equal bilateral excursions. CARDIOVASCULAR: Palpable 2+ radial pulses. ABDOMEN: Soft. Mildly distended. Tenderness noted in the right upper quadrant with palpation MUSCULOSKELETAL: No clubbing or cyanosis. NEUROLOGIC: No focal or lateralizing signs. Cranial nerves II through XII grossly intact. PSYCH: Appropriate affect. Alert and oriented to person, place and time. SKIN: Well perfused. Good skin turgor. LABORATORY DATA: WBC is 11.5 hemoglobin 16.5 platelets 148 INR 1.4 Sodium 125 potassium 5.2 creatinine 1.25 Total bilirubin 3.2 AST 578 ALT 527 alk phos 186 IMAGING: abdominal ultrasound completed that did reveal mild gallbladder wall thickening. There is probably some non-shadowing stones or gallbladder polyps Chest x-ray there is right pleural effusion. Cardiomegaly. Minimal heart failure as possible. EKG sinus rhythm left bundle branch block ASSESSMENT: 1. Acute cholecystitis. Right upper quadrant abdominal pain with decreased appetite. Abdominal ultrasound reporting mild gallbladder wall thickening and probably some non-shadowing stones or gallbladder polyps 2. Elevated LFTs and total bilirubin 3. History of CHF, coronary artery disease and possible bad heart valve. Cardiology on consult 4. Shortness of breath 5. Hyponatremia PLAN: -Patient scheduled for robotic cholecystectomy on 01/01/[address] Norris -Start antibiotics -MRCP ordered for further evaluation of possible choledocholithiasis -Downgrade diet to clear liquids -Check CBC and CMP -Patient to be evaluated by cardiology service Physician [employer] Manager note has been reviewed by physician. Signing provider agrees with the documented findings, assessment, and plan of care. Past Medical History Past Medical History: Coronary Artery Disease (CAD), Cancer, Heart Failure, H yperlipidemia Additional Past Medical History / Comment(s): Pt states recent cardiac cath 12/19/21 showed 2 coronary blockages and a "bad valve" which is to be evaluated by MRI at [facility] soon, R lung cancer 14 years ago/treated with chemo and radiation/sees Dr. Escobar, cardiomegaly, lower extremity edema, pt has had pericardiacentesis. History of Any Multi-Drug Resistant Organisms: None Reported Past Surgical History: Heart Catheterization, Orthopedic Surgery Additional Past Surgical History / Comment(s): 12/19/21 R/L cardiac cath, attempted CHINO, L foot "reattached" and has hardware, colonoscopy. Past Anesthesia/Blood Transfusion Reactions: No Reported Reaction Past Psychological History: No Psychological Hx Reported Additional Psychological History / Comment(s): Pt resides with his spouse. He is independent. Smoking Status: Former smoker Past Alcohol Use History: None Reported Additional Past Alcohol Use History / Comment(s): Pt started smoking in 1965 and quit in 2007. Past Drug Use History: None Reported - Past Family History Mother Family Medical History: Cancer Additional Family Medical History / Comment(s): Pt cannot recall type of cancer. Father Family Medical History: No Reported History Medications and Allergies Home Medications Medication Instructions Recorded Confirmed Type No Known Home Medications 12/28/21 12/28/21 History Allergies Allergy/AdvReac Type Severity Reaction Status Date / Time No Known Allergies Allergy Verified 12/28/21 22:40 Surgical - Exam Vital Signs Temp Pulse Resp BP Pulse Ox 98.0 F 95 26 H 106/68 96 12/28/21 21:02 12/28/21 21:02 12/28/21 21:02 12/28/21 21:02 12/28/21 21:02 Results - Labs 12/29/21 12:00 12/29/21 12:00 Abnormal Lab Results - Last 24 Hours (Table) 12/28/21 12/28/21 12/28/21 Range/Units 21:56 21:56 21:56 WBC 11.5 H (3.8-10.6) k/uL Plt Count 148 L (150-450) k/uL Neutrophils # 9.4 H (1.3-7.7) k/uL Lymphocytes # 0.9 L (1.0-4.8) k/uL PT 14.4 H (9.0-12.0) sec INR 1.4 H (<1.2) Sodium 125 L (137-145) mmol/L Potassium 5.2 H (3.5-5.1) mmol/L Chloride 90 L (98-107) mmol/L Carbon Dioxide 21 L (22-30) mmol/L BUN 45 H (9-20) mg/dL Glucose 147 H (74-99) mg/dL Total Bilirubin 3.2 H (0.2-1.3) mg/dL AST 578 H (17-59) U/L ALT 527 H (4-49) U/L Alkaline Phosphatase 186 H (38-126) U/L Total Protein 8.4 H (6.3-8.2) g/dL Diabetes panel 12/28/21 Range/Units 21:56 Sodium 125 L (137-145) mmol/L Potassium 5.2 H (3.5-5.1) mmol/L Chloride 90 L (98-107) mmol/L Carbon Dioxide 21 L (22-30) mmol/L BUN 45 H (9-20) mg/dL Creatinine 1.25 (0.66-1.25) mg/dL Glucose 147 H (74-99) mg/dL Calcium 9.7 (8.4-10.2) mg/dL AST 578 H (17-59) U/L ALT 527 H (4-49) U/L Alkaline Phosphatase 186 H (38-126) U/L Total Protein 8.4 H (6.3-8.2) g/dL Albumin 4.8 (3.5-5.0) g/dL Calcium panel 12/28/21 Range/Units 21:56 Calcium 9.7 (8.4-10.2) mg/dL Albumin 4.8 (3.5-5.0) g/dL Pituitary panel 12/28/21 Range/Units 21:56 Sodium 125 L (137-145) mmol/L Potassium 5.2 H (3.5-5.1) mmol/L Chloride 90 L (98-107) mmol/L Carbon Dioxide 21 L (22-30) mmol/L BUN 45 H (9-20) mg/dL Creatinine 1.25 (0.66-1.25) mg/dL Glucose 147 H (74-99) mg/dL Calcium 9.7 (8.4-10.2) mg/dL Adrenal panel 12/28/21 Range/Units 21:56 Sodium 125 L (137-145) mmol/L Potassium 5.2 H (3.5-5.1) mmol/L Chloride 90 L (98-107) mmol/L Carbon Dioxide 21 L (22-30) mmol/L BUN 45 H (9-20) mg/dL Creatinine 1.25 (0.66-1.25) mg/dL Glucose 147 H (74-99) mg/dL Calcium 9.7 (8.4-10.2) mg/dL Total Bilirubin 3.2 H (0.2-1.3) mg/dL AST 578 H (17-59) U/L ALT 527 H (4-49) U/L Alkaline Phosphatase 186 H (38-126) U/L Total Protein 8.4 H (6.3-8.2) g/dL Albumin 4.8 (3.5-5.0) g/dL
[2021-12-29 12:29] LABS: Basophils # (A) 0.1 k/uL (0-0.2); Basophils % (A) 0 %; Eosinophils % (A) 0 %; HCT 47.6 % (39.0-53.0); Lymphocytes # (A) 0.7 k/uL (1.0-4.8); Lymphocytes % (A) 6 %; MCH 31.6 pg (25.0-35.0); MCHC 33.6 g/dL (31.0-37.0); MCV 94.2 fL (80.0-100.0); Mean Platelet Volume 10.5; Monocytes # (A) 0.9 k/uL (0-1.0); Monocytes % (A) 8 %; Neutrophils # (A) 9.4 k/uL (1.3-7.7); Neutrophils % (A) 83 %; Platelet Count 155 k/uL (150-450); RBC 5.06 m/uL (4.30-5.90); RDW 13.2 % (11.5-15.5); WBC 11.3 k/uL (3.8-10.6)
[2021-12-29 12:32] LABS: ALT 516 U/L (4-49); AST 442 U/L (17-59); African American GFR (CKD) 87 (>60 ml/min/1.73 sqM); Albumin 4.9 g/dL (3.5-5.0); Albumin/Globulin Ratio 1.3; Alkaline Phosphatase 205 U/L (38-126); Anion Gap 15 mmol/L; Blood Urea Nitrogen 39 mg/dL (9-20); Calcium 9.6 mg/dL (8.4-10.2); Carbon Dioxide 21 mmol/L (22-30); Chloride 91 mmol/L (98-107); Globulin 3.8 g/dL; Glucose 147 mg/dL (74-99); Non-African American GFR(CKD) 75 (>60 ml/min/1.73 sqM); Potassium 4.4 mmol/L (3.5-5.1); Sodium 127 mmol/L (137-145); Total Bilirubin 2.7 mg/dL (0.2-1.3); Total Protein 8.7 g/dL (6.3-8.2)
[2021-12-29] MEDS: PIPERACILLIN-TAZOBACTAM 3.375 GM in SODIUM CHLORIDE 0.9% 100 ML IVPB SCH ×2 (16:43→23:46)
--- NOTE | 2021-12-29 17:50 | P.HPIM ---
History of Present Illness H&P Date: 12/29/21 Chief Complaint: Shortness of breath 66-year-old male who was seen in the emergency room. He came into the ER due to worsening shortness of breath with exertion. He does have a history of CHF, a bad heart valve and coronary artery disease. Patient states she is undergoing workup for possible stent as well as possible surgery on his heart valve. Patient also reports a decreased appetite and having abdominal bloating for the last 2 days. He did have one episode of vomiting the other day. Patient had abdominal ultrasound completed that did reveal mild gallbladder wall thickening. There is probably some non-shadowing stones or gallbladder polyps. Patient does report some mild discomfort in the right upper quadrant after eating. Denies any fever chills or sweats. Denies any change in bowel habits. Patient also has a prior history of lung cancer diagnosed 14 years ago and had undergone chemoradiation treatment. Denies any pressure to goal history on the abdomen. WBC is 11.5 hemoglobin 16.5 platelets 148; INR 1.4; Sodium 125 potassium 5.2 creatinine 1.25; Total bilirubin 3.2 AST 578 ALT 527 alk phos 186 Abdominal ultrasound completed that did reveal mild gallbladder wall thickening. There is probably some non-shadowing stones or gallbladder polyps Chest x-ray there is right pleural effusion. Cardiomegaly. Minimal heart failure as possible. EKG sinus rhythm left bundle branch block Review of Systems REVIEW OF SYSTEMS: CONSTITUTIONAL: No fever, no malaise, no fatigue. HEENT: No recent visual problems or hearing problems. Denied any sore throat. CARDIOVASCULAR: No chest pain, orthopnea, PND, no palpitations, no syncope. PULMONARY: No shortness of breath, no cough, no hemoptysis. GASTROINTESTINAL: No diarrhea, no nausea, no vomiting, no abdominal pain. NEUROLOGICAL: No headaches, no weakness, no numbness. HEMATOLOGICAL: Denies any bleeding or petechiae. GENITOURINARY: Denies any burning micturition, frequency, or urgency. MUSCULOSKELETAL/RHEUMATOLOGICAL: Denies any joint pain, swelling, or any muscle pain. ENDOCRINE: Denies any polyuria or polydipsia. The rest of the 14-point review of systems is negative. Past Medical History Past Medical History: Coronary Artery Disease (CAD), Cancer, Heart Failure, Hyperlipidemia Additional Past Medical History / Comment(s): Pt states recent cardiac cath 12/19/21 showed 2 coronary blockages and a "bad valve" which is to be evaluated by MRI at [facility] soon, R lung cancer 14 years ago/treated with chemo and radiation/sees Dr. Escobar, cardiomegaly, lower extremity edema, pt has had pericardiacentesis. History of Any Multi-Drug Resistant Organisms: None Reported Past Surgical History: Heart Catheterization, Orthopedic Surgery Additional Past Surgical History / Comment(s): 12/19/21 R/L cardiac cath, attempted CHINO, L foot "reattached" and has hardware, colonoscopy. Past Anesthesia/Blood Transfusion Reactions: No Reported Reaction Past Psychological History: No Psychological Hx Reported Additional Psychological History / Comment(s): Pt resides with his spouse. He is independent. Smoking Status: Former smoker Past Alcohol Use History: None Reported Additional Past Alcohol Use History / Comment(s): Pt started smoking in 1965 and quit in 2007. Past Drug Use History: None Reported - Past Family History Mother Family Medical History: Cancer Additional Family Medical History / Comment(s): Pt cannot recall type of cancer. Father Family Medical History: No Reported History Medications and Allergies Home Medications Medication Instructions Recorded Confirmed Type No Known Home Medications 12/28/21 12/28/21 History Allergies Allergy/AdvReac Type Severity Reaction Status Date / Time No Known Allergies Allergy Verified 12/28/21 22:40 Physical Exam Vitals: Vital Signs Temp Pulse Pulse Resp BP BP Pulse Ox 12/29/21 08:00 97.9 F 93 18 109/71 98 12/29/21 06:37 95 18 107/69 97 12/28/21 22:52 92 12/28/21 22:40 94 12/28/21 22:20 18 12/28/21 22:08 89 18 114/76 99 12/28/21 21:44 96 18 114/76 97 12/28/21 21:02 98.0 F 95 26 H 106/68 96 Intake and Output 12/28/21 12/29/21 12/29/21 22:59 06:59 14:59 Other: Weight 67.132 kg 67.132 kg - Constitutional General appearance: Present: average body habitus, cooperative, no acute distress - EENT Eyes: Present: anicteric sclerae, EOMI, PERRLA, normal appearance ENT: Present: hearing grossly normal, normal oropharynx Ears: bilateral: normal - Neck Neck: Present: normal ROM. Absent: lymphadenopathy, rigidity, thyromegaly Carotids: negative: bruit present Thyroid: bilateral: normal size, negative: enlarged, nodule - Respiratory Respiratory: bilateral: CTA, negative: rales, rhonchi, wheezing - Cardiovascular Rhythm: regular Heart sounds: normal: S1, S2 Abnormal Heart Sounds: Absent: systolic murmur, diastolic murmur - Gastrointestinal General gastrointestinal: Present: normal bowel sounds, soft. Absent: distended, organomegaly, tenderness - Genitourinary Genitourinary Comment(s): deferred - Integumentary Integumentary: Present: normal turgor. Absent: jaundiced, rash, ulcer - Neurologic Neurologic: Present: CNII-XII intact. Absent: focal deficits - Musculoskeletal Musculoskeletal: Present: gait normal, strength equal bilaterally - Psychiatric Psychiatric: Present: A&O x's 3, appropriate affect, intact judgment & insight Results CBC & Chem 7: 12/29/21 12:00 12/29/21 12:00 Labs: Abnormal Lab Results - Last 24 Hours (Table) 12/28/21 12/28/21 12/28/21 Range/Units 21:56 21:56 21:56 WBC 11.5 H (3.8-10.6) k/uL Plt Count 148 L (150-450) k/uL Neutrophils # 9.4 H (1.3-7.7) k/uL Lymphocytes # 0.9 L (1.0-4.8) k/uL PT 14.4 H (9.0-12.0) sec INR 1.4 H (<1.2) Sodium 125 L (137-145) mmol/L Potassium 5.2 H (3.5-5.1) mmol/L Chloride 90 L (98-107) mmol/L Carbon Dioxide 21 L (22-30) mmol/L BUN 45 H (9-20) mg/dL Glucose 147 H (74-99) mg/dL Total Bilirubin 3.2 H (0.2-1.3) mg/dL AST 578 H (17-59) U/L ALT 527 H (4-49) U/L Alkaline Phosphatase 186 H (38-126) U/L Total Protein 8.4 H (6.3-8.2) g/dL 12/29/21 12/29/21 Range/Units 12:00 12:00 WBC 11.3 H (3.8-10.6) k/uL Plt Count (150-450) k/uL Neutrophils # 9.4 H (1.3-7.7) k/uL Lymphocytes # 0.7 L (1.0-4.8) k/uL PT (9.0-12.0) sec INR (<1.2) Sodium 127 L (137-145) mmol/L Potassium (3.5-5.1) mmol/L Chloride 91 L (98-107) mmol/L Carbon Dioxide 21 L (22-30) mmol/L BUN 39 H (9-20) mg/dL Glucose 147 H (74-99) mg/dL Total Bilirubin 2.7 H (0.2-1.3) mg/dL AST 442 H (17-59) U/L ALT 516 H (4-49) U/L Alkaline Phosphatase 205 H (38-126) U/L Total Protein 8.7 H (6.3-8.2) g/dL Thrombosis Risk Factor Assmnt - Choose All That Apply Each Factor Represents 1 point: Heart failure (<1month), Swollen legs (current) Other Risk Factors: Yes Each Risk Factor Represents 2 Points: Age 61-74 years, Malignancy Other congenital or acquired thrombophilia - If yes, enter type in comment: No Thrombosis Risk Factor Assessment Total Risk Factor Score: 6 Thrombosis Risk Factor Assessment Level: High Risk Assessment and Plan Assessment: 1. Acute exacerbation CHF; patient received IV Lasix in ED; cardiology is consulted for further recommendations; order 2-D echo 2. Acute cholecystitis/ elevated liver enzymes and total bilirubin; patient reports slight upper quadrant pain; abdominal ultrasound reveals mild gallbladder wall thickening with some stones versus gallbladder polyps; general surgery on board; MRCP is ordered for further evaluation of possible choledocholithiasis; patient has been placed on IV antibiotics in form of IV Zosyn - Possible robotic cholecystectomy on 01/01/2022 3. Acute renal; IV fluid hydration with normal saline; monitor strict CECILE's, daily weights, renal function and electrolytes; avoid nephrotoxins 4. Hyponatremia; IV fluids in form of normal saline; monitor lites closely 5. Hyperlipidemia; patient currently not on statin therapy DVT prophylaxis; SCDs CODE STATUS; full code
--- NOTE | 2021-12-29 20:08 | P.CRDCN ---
History of Present Illness History of present illness: This is Dr. Fairchild dictating a consult on this patient The patient was interviewed and examined IMPRESSION / ASSESSMENT: Left bundle branch block pattern twelve-lead Coronary artery disease involving the left main and the LAD and the RCA Known mitral regurgitation Admitted with elevated AST ALT alkaline phosphatase and bilirubin with 72 ohms of abdominal distention and bloating nausea vomiting He did not report any cardiac medications PLAN: From a cardiac standpoint aspirin and statins are indicated but given his liver function abnormalities and elevated PT, these on hold I will start him on oral Lasix 40 mg by mouth daily LV afterload reduction indicated for his MR at this time. We will start angiotensin receptor blockers after assessing response to by mouth Lasix. From a surgical standpoint this gentleman is high risk for cardiovascular events. Fluid balance must be maintained very carefully perioperatively He should be monitored in the ICU postoperatively HPI Patient presents to the emergency room with increased shortness of breath on exertion. He also has difficulty lying flat and states He complained of decreased appetite and abdominal bloating for the last 2 days and one episode of vomiting Abnormal liver function tests were noted Mild gallbladder thickening noted Twelve-lead EKG shows left bundle branch block pattern The patient has known calcific atherosclerotic coronary artery disease and underwent coronary angiography [address] Oliva Disease and the left main noted Mid to distal LAD have 2 discrete lesions proximally 70% Mild disease in the left circumflex 60% stenosis mid to distal RCA which is diffusely diseased A CHINO was attempted but was not possible He has mitral regurgitation on 2-D echo ROS: No fever chills or rigors, no cough, phlegm or expectoration, no nausea, vomiting or diarrhea, no hematuria, dysuria, no musculoskeletal complaints, no strokes or seizures, no skin lesions. EXAMINATION: Blood pressure normal 180and 5 mmHg pulse rate 109 beats a minute Walking around the room looks comfortable However he states he has difficulty lying flat in bed Murmur of mitral regurgitation audible No JVD Lungs are clear Abdomen is distended REVIEW OF LABS, ECG & MEDICAL DATA Abnormal labs White count is mildly elevated. Hemoglobin is normal Low sodium, kidney function normal Elevated bilirubin Abnormal transaminases Elevated alkaline phosphatase Normal troponins BNP NT pro, 11,000 Twelve-lead EKG shows sinus tachycardia with a left bundle branch block Past Medical History Past Medical History: Coronary Artery Disease (CAD), Cancer, Heart Failure, Hy perlipidemia Additional Past Medical History / Comment(s): Pt states recent cardiac cath 12/19/21 showed 2 coronary blockages and a "bad valve" which is to be evaluated by MRI at [facility] soon, R lung cancer 14 years ago/treated with chemo and radiation/sees Dr. Escobar, cardiomegaly, lower extremity edema, pt has had pericardiacentesis. History of Any Multi-Drug Resistant Organisms: None Reported Past Surgical History: Heart Catheterization, Orthopedic Surgery Additional Past Surgical History / Comment(s): 12/19/21 R/L cardiac cath, attempted CHINO, L foot "reattached" and has hardware, colonoscopy. Past Anesthesia/Blood Transfusion Reactions: No Reported Reaction Past Psychological History: No Psychological Hx Reported Additional Psychological History / Comment(s): Pt resides with his spouse. He is independent. Smoking Status: Former smoker Past Alcohol Use History: None Reported Additional Past Alcohol Use History / Comment(s): Pt started smoking in 1965 and quit in 2007. Past Drug Use History: None Reported - Past Family History Mother Family Medical History: Cancer Additional Family Medical History / Comment(s): Pt cannot recall type of cancer. Father Family Medical History: No Reported History Medications and Allergies Home Medications Medication Instructions Recorded Confirmed Type No Known Home Medications 12/28/21 12/28/21 History Allergies Allergy/AdvReac Type Severity Reaction Status Date / Time No Known Allergies Allergy Verified 12/28/21 22:40 Physical Exam Vitals: Vital Signs Temp Pulse Pulse Resp BP BP Pulse Ox 12/29/21 19:17 98.2 F 109 H 18 121/80 95 12/29/21 16:57 104 H 12/29/21 16:55 96.3 F L 104 H 18 118/75 96 12/29/21 08:00 97.9 F 93 18 109/71 98 12/29/21 06:37 95 18 107/69 97 12/28/21 22:52 92 12/28/21 22:40 94 12/28/21 22:20 18 12/28/21 22:08 89 18 114/76 99 12/28/21 21:44 96 18 114/76 97 12/28/21 21:02 98.0 F 95 26 H 106/68 96 Intake and Output 12/29/21 12/29/21 12/29/21 06:59 14:59 22:59 Intake Total 100 Output Total 2 Balance 98 Intake: Intake, IV Titration 100 Amount Piperacillin-Tazobactam 3 100 .375 gm In Sodium Chloride 0.9% 100 ml @ 25 mls/hr IVPB Q8HR [facility] Rx# :[id number] Output: Urine 2 Other: Voiding Method Urinal Weight 67.132 kg Results 12/29/21 12:00 12/29/21 12:00 Cardiac Enzymes 12/28/21 12/28/21 12/29/21 Range/Units 21:56 21:56 12:00 AST 578 H 442 H (17-59) U/L Troponin I 0.031 (0.000-0.034) ng/mL Coagulation 12/28/21 Range/Units 21:56 PT 14.4 H (9.0-12.0) sec APTT 25.9 (22.0-30.0) sec CBC 12/28/21 12/29/21 Range/Units 21:56 12:00 WBC 11.5 H 11.3 H (3.8-10.6) k/uL RBC 5.19 5.06 (4.30-5.90) m/uL Hgb 16.5 16.0 (13.0-17.5) gm/dL Hct 47.4 47.6 (39.0-53.0) % Plt Count 148 L 155 (150-450) k/uL Comprehensive Metabolic Panel 12/28/21 12/29/21 Range/Units 21:56 12:00 Sodium 125 L 127 L (137-145) mmol/L Potassium 5.2 H 4.4 (3.5-5.1) mmol/L Chloride 90 L 91 L (98-107) mmol/L Carbon Dioxide 21 L 21 L (22-30) mmol/L BUN 45 H 39 H (9-20) mg/dL Creatinine 1.25 1.04 (0.66-1.25) mg/dL Glucose 147 H 147 H (74-99) mg/dL Calcium 9.7 9.6 (8.4-10.2) mg/dL AST 578 H 442 H (17-59) U/L ALT 527 H 516 H (4-49) U/L Alkaline Phosphatase 186 H 205 H (38-126) U/L Total Protein 8.4 H 8.7 H (6.3-8.2) g/dL Albumin 4.8 4.9 (3.5-5.0) g/dL Current Medications Generic Name Dose Route Start Last Admin Trade Name Freq PRN Reason Stop Dose Admin Piperacillin Sod/Tazobactam 100 mls @ 25 mls/hr 12/29/21 16:00 12/29/21 16:43 Sod 3.375 gm/ Sodium Chloride IVPB 25 mls/hr Q8HR [facility] Administration Protocol Morphine Sulfate 4 mg 12/29/21 00:40 Morphine Sulfate 4 Mg/Ml Syringe IV Q4HR PRN Severe Pain Naloxone HCl 0.2 mg 12/29/21 00:40 Naloxone 0.4 Mg/Ml 1 Ml Vial IV Q2M PRN Opioid Reversal Ondansetron HCl 4 mg 12/29/21 00:40 Ondansetron 4 Mg/2 Ml Vial IVP Q8HR PRN Nausea And Vomiting Intake and Output 12/29/21 12/29/21 12/29/21 06:59 14:59 22:59 Intake Total 100 Output Total 2 Balance 98 Intake: Intake, IV Titration 100 Amount Piperacillin-Tazobactam 3 100 .375 gm In Sodium Chloride 0.9% 100 ml @ 25 mls/hr IVPB Q8HR [facility] Rx# :[id number] Output: Urine 2 Other: Voiding Method Urinal Weight 67.132 kg Patient Weight 12/30/21 06:59 Weight 67.132 kg 12/29/21 12:00 12/29/21 12:00
--- NOTE | 2021-12-30 07:10 | XR ---
EXAMINATION TYPE: XR chest 1V DATE OF EXAM: 12/30/2021 CLINICAL HISTORY: Difficulty breathing and CHF progress study. History of lung cancer. TECHNIQUE: Single AP portable upright view of the chest is obtained. COMPARISON: Chest x-ray from 2 days earlier and older studies. FINDINGS: Osseous structures remain demineralized. Persistent cardiomegaly with mild central vascula r congestion and small right pleural effusion with associated right lower lung atelectasis and/or inf iltrate. Stable right-sided volume loss. IMPRESSION: Cardiomegaly with mild central vascular congestion and chronic small right pleural effusi on and right lower lung atelectasis and/or infiltrate. No significant change from most recent x-ray.
[2021-12-30 09:17] LABS: African American GFR (CKD) 80.6 (60.0-200.0); Albumin/Globulin Ratio 1.54 (1.60-3.17); Anion Gap 14.6 mmol/L (10.00-18.00); BUN/Creat Ratio 31.91 Ratio (12.00-20.00); Blood Urea Nitrogen 35.1 mg/dL (9.0-27.0); Calcium 9.3 mg/dL (8.7-10.3); Carbon Dioxide 19.4 mmol/L (20.0-27.5); Globulin 2.6 g/dL (1.6-3.3); Magnesium 2.2 mg/dL (1.5-2.4); Non-African American GFR(CKD) 69.6 (60.0-200.0); Phosphorus 3.3 mg/dL (2.4-5.1); Total Bilirubin 1.8 mg/dL (0.30-1.20); Total Protein 6.6 g/dL (6.2-8.2)
[2021-12-30 09:42] LABS: Basophils # (A) 0.02 X 10*3/uL (0.00-0.10); Basophils % (A) 0.2 %; Eosinophils # (A) 0.01 X 10*3/uL (0.04-0.35); Eosinophils % (A) 0.1 %; HCT 42.7 % (39.6-50.0); HGB 14.4 g/dL (13.0-17.0); Immature Grans, Automated 0.4 %; Lymphocytes # (A) 0.58 X 10*3/uL (0.90-5.00); MCH 30.6 pg (27.0-32.0); MCHC 33.7 g/dL (32.0-37.0); MCV 90.7 fL (80.0-97.0); Mean Platelet Volume 13.9 fL (9.5-12.2); Monocytes # (A) 1.35 X 10*3/uL (0.20-1.00); Monocytes % (A) 16.2 %; NRBC Per 100 WBC 0 /100 WBCS (0.0-0.0); Neutrophils # (A) 6.33 X 10*3/uL (1.80-7.70); Neutrophils % (A) 76.1 %; Platelet Count 113 X 10*3/uL (140-440); RBC 4.71 X 10*6/uL (4.40-5.60); RDW 13.3 % (11.5-14.5); WBC 8.32 X 10*3/uL (4.50-10.00)
[2021-12-30] MEDS: PIPERACILLIN-TAZOBACTAM 3.375 GM in SODIUM CHLORIDE 0.9% 100 ML IVPB SCH ×2 (09:52→16:17)
[2021-12-30] MEDS: FUROSEMIDE 40 MG TAB PO SCH (10:05)
--- NOTE | 2021-12-30 10:11 | MR ---
EXAMINATION TYPE: MR MRCP DATE OF EXAM: 12/30/2021 COMPARISON: CT August 22, 2021 gallbladder ultrasound 2 days ago. HISTORY: RUQ pain with possible choledocholithiasis Standard multiplanar, multisequence MRI departmental protocol Multiplanar, multisequence images of the abdomen were acquired without contrast. Diffusion weighted i maging was performed. Thin and thick slice MRCP imaging is performed on independent workstation. FINDINGS: Exam suboptimal as patient unable to hold breath. Liver/gallbladder/pancreas/biliary system: Pancreas normal in size without concerning solid or cystic mass. Liver is normal in size with 6 mm thin-walled cyst in the posterior right hepatic lobe coronal image 29. Gallbladder shows no intraluminal gallstones. MRCP imaging shows no pancreatic ductal dila tation. There is no suspicious intrahepatic or extra hepatic biliary dilatation noted. No intralumina l filling defect or CBD stone. Other: Elevated right hemidiaphragm redemonstrated. The spleen and both adrenal glands remain within normal limits. No concerning renal mass or hydronephrosis. No suspicious small or large bowel dilatat ion. Moderately distended bladder partially imaged. No intra-abdominal ascites. Visualized osseous st ructures are intact. IMPRESSION: Suboptimal study. No CBD stones. No intraluminal gallstones or MRI evidence for acute cho lecystitis. No biliary or pancreatic ductal dilatation.
--- NOTE | 2021-12-30 11:22 | P.PN ---
Progress Note - Text Progress Note Date: 12/30/21 Patient remained stable. He denies any significant abdominal pain. On exam vital signs are stable. Abdomen soft. Patient is scheduled for laparoscopically cholecystectomy with Dr. Maldonado on Saturday.
--- NOTE | 2021-12-30 11:57 | P.PN ---
Subjective HPI Patient presents to the emergency room with increased shortness of breath on exertion. He also has difficulty lying flat and states He complained of decreased appetite and abdominal bloating for the last 2 days and one episode of vomiting Abnormal liver function tests were noted Mild gallbladder thickening noted Twelve-lead EKG shows left bundle branch block pattern The patient has known calcific atherosclerotic coronary artery disease and underwent coronary angiography [address] Oliva Disease and the left main noted Mid to distal LAD have 2 discrete lesions proximally 70% Mild disease in the left circumflex 60% stenosis mid to distal RCA which is diffusely diseased A CHINO was attempted but was not possible He has mitral regurgitation on 2-D echo 12/30 Patient seen and examined. He denies any chest pain or pressure. He still does have mild dyspnea however states is stable and fairly chronic area she was started on Lasix yesterday and states he had good urine output. Blood pressures have mainly been in the 130s systolic. ROS: No fever chills or rigors, no cough, phlegm or expectoration, no nausea, vomiting or diarrhea, no hematuria, dysuria, no musculoskeletal complaints, no strokes or seizures, no skin lesions. EXAMINATION: Vitals reviewed Appears comforablte, NAD Murmur of mitral regurgitation audible No JVD Lungs are clear Abdomen is mildly distended IMPRESSION / ASSESSMENT: Left bundle branch block pattern twelve-lead Coronary artery disease involving the left main and the LAD and the RCA Known mitral regurgitation Admitted with elevated AST ALT alkaline phosphatase and bilirubin with abdominal distention and bloating nausea vomiting, gallbladder disease Preoperative cardiovascular assessment PLAN: Patient appears near euvolemic. He does have chronic dyspnea and states that he is able to walk up a flight of stairs without any dyspnea or chest pain. Patient therefore should be able to tolerate surgery well however is at increased risk. Low dose Losartan. No further recommendations. Please call with any questions. Objective - Vital Signs Vital signs: Vital Signs Temp 97.4 F L 12/30/21 11:02 Pulse 109 H 12/30/21 11:02 Resp 18 12/30/21 11:02 BP 114/73 12/30/21 11:02 Pulse Ox 96 12/30/21 11:02 Intake & Output 12/29/21 12/30/21 12/30/21 18:59 06:59 18:59 Intake Total 100 Output Total 2 Balance 98 Weight 67.132 kg Intake: Intake, IV Titration 100 Amount Piperacillin-Tazobactam 3 100 .375 gm In Sodium Chloride 0.9% 100 ml @ 25 mls/hr IVPB Q8HR [facility] Rx# :[id number] Output: Urine 2 Other: Voiding Method Urinal Urinal Urinal # Voids 1 - Labs CBC & Chem 7: 12/30/21 04:34 12/30/21 04:34 Labs: Abnormal Lab Results - Last 24 Hours (Table) 12/29/21 12/29/21 12/30/21 Range/Units 12:00 12:00 04:34 WBC 11.3 H (3.8-10.6) k/uL Plt Count 113 L (140-440) X 10*3/uL MPV 13.9 H (9.5-12.2) fL Neutrophils # 9.4 H (1.3-7.7) k/uL Lymphocytes # 0.7 L 0.58 L (1.0-4.8) k/uL Monocytes # 1.35 H (0.20-1.00) X 10*3/uL Eosinophils # 0.01 L (0.04-0.35) X 10*3/uL Sodium 127 L (137-145) mmol/L Chloride 91 L (98-107) mmol/L Carbon Dioxide 21 L (22-30) mmol/L BUN 39 H (9-20) mg/dL BUN/Creatinine Ratio (12.00-20.00) Ratio Glucose 147 H (74-99) mg/dL Total Bilirubin 2.7 H (0.2-1.3) mg/dL AST 442 H (17-59) U/L ALT 516 H (4-49) U/L Alkaline Phosphatase 205 H (38-126) U/L Total Protein 8.7 H (6.3-8.2) g/dL Albumin/Globulin Ratio (1.60-3.17) g/dL 12/30/21 Range/Units 04:34 WBC (3.8-10.6) k/uL Plt Count (140-440) X 10*3/uL MPV (9.5-12.2) fL Neutrophils # (1.3-7.7) k/uL Lymphocytes # (1.0-4.8) k/uL Monocytes # (0.20-1.00) X 10*3/uL Eosinophils # (0.04-0.35) X 10*3/uL Sodium 129 L (137-145) mmol/L Chloride 95 L (98-107) mmol/L Carbon Dioxide 19.4 L (22-30) mmol/L BUN 35.1 H (9-20) mg/dL BUN/Creatinine Ratio 31.91 H (12.00-20.00) Ratio Glucose 126 H (74-99) mg/dL Total Bilirubin 1.80 H (0.2-1.3) mg/dL AST 201 H (17-59) U/L ALT 389 H (4-49) U/L Alkaline Phosphatase 169 H (38-126) U/L Total Protein (6.3-8.2) g/dL Albumin/Globulin Ratio 1.54 L (1.60-3.17) g/dL
[2021-12-30] MEDS: LOSARTAN 25 MG TAB PO SCH (12:32)
[2021-12-31] MEDS: PIPERACILLIN-TAZOBACTAM 3.375 GM in SODIUM CHLORIDE 0.9% 100 ML IVPB SCH ×4 (00:55→23:45)
[2021-12-31] MEDS: LOSARTAN 25 MG TAB PO SCH (09:05)
[2021-12-31] MEDS: FUROSEMIDE 40 MG TAB PO SCH ×2 (09:05→15:59)
--- NOTE | 2021-12-31 10:53 | P.PN ---
Progress Note - Text Progress Note Date: 12/31/21 Patient may still. He is scheduled for laparoscopic cholecystectomy in the a.m.
--- NOTE | 2021-12-31 14:45 | P.PN ---
Subjective Progress Note Date: 12/31/21 HPI Patient presents to the emergency room with increased shortness of breath on exertion. He also has difficulty lying flat He complained of decreased appetite and abdominal bloating for the last 2 days a nd one episode of vomiting Abnormal liver function tests were noted Mild gallbladder thickening noted Twelve-lead EKG shows left bundle branch block pattern The patient has known calcific atherosclerotic coronary artery disease and underwent coronary angiography [address] Oliva Disease and the left main noted Mid to distal LAD have 2 discrete lesions proximally 70% Mild disease in the left circumflex 60% stenosis mid to distal RCA which is diffusely diseased A CHINO was attempted but was not possible He has mitral regurgitation on 2-D echo 12/30 Patient seen and examined. He denies any chest pain or pressure. He still does have mild dyspnea however states is stable and fairly chronic area she was started on Lasix yesterday and states he had good urine output. Blood pressures have mainly been in the 130s systolic. 12/31: Records reviewed from 12/19/2021, Dr. dale attempted transesophageal echocardiogram to evaluate for mitral regurgitation and aortic stenosis. This was incomplete as patient has esophageal strictures secondary to Cardiac catheterization revealed severe disease involving the mid LAD, intermediate to severe disease involving the mid to distal RCA. Plan was to schedule patient for cardiac [facility] at [facility]. Patient's states that she has been waiting for a call and this has not been scheduled as of yet. Plan is for either open heart surgery for CABG and valve replacement/repair or stenting of the LAD and RCA without treatment for valve and final determination will be made after cardiac MRI is completed. Also discussed with the patient and his the option of a right heart catheterization. At this point, general surgery will be contacted by Dr. Kwong and discuss concerns that his abdominal pain and elevated enzymes could be a component of heart failure and he is at higher risk for undergoing gallbladder surgery which is scheduled for Saturday. We will discuss option of postponing the surgery until cardiac workup is completed. This morning, patient complains of edema lower extremities which she noticed this more. Regarding medications, patient is on Lasix 40 mg oral daily at home as needed if his weight is greater than 149 pounds. He has been tried on Lopressor and atorvastatin but these were discontinued as patient had ill effects. Patient states he has a good appetite, denies any abdominal pain. Oral Lasix will be increased frequency to 40 mg twice daily. All concerns from the patient and his have been addressed, patient's nurse has been updated. EXAMINATION: Vitals reviewed Appears comforablte, NAD Murmur of mitral regurgitation audible No JVD, 1+ bilateral pedal edema Lungs are clear Abdomen is mildly distended IMPRESSION / ASSESSMENT: Left bundle branch block pattern twelve-lead Coronary artery disease involving the left main and the LAD and the RCA. Unrevascularized LAD Severe mitral regurgitation however awaiting cardiac MRI to assess severity Admitted with elevated AST ALT alkaline phosphatase and bilirubin with abdominal distention and bloating nausea vomiting concerning for gallbladder disease but also some of symptoms may be related to heart failure and hepatic congestion. PLAN: Increase Lasix to 40 mg oral twice daily and ralph hose Monitor I&O and daily weights, repeat renal function tests in the morning Patient with unrevascularized LAD disease and additional severe MR being evalutaed for possible CABG/ mitral valve repair vs PCI LAD. Attempted to page surgery and unable to reach at this time. Cholecystectomy does not appear urgent and would defer choley until further workup from a cardiology perspective. Discussed with nurse regarding holding surgery 01/01. May consider right heart catheterization to further evaluate cardiac output and right sided filling pressures. If right sided filling pressures extremely elevated findings may also correspond with congestive hepatopathy. Objective - Vital Signs Vital signs: Vital Signs Temp 97.6 F 12/31/21 11:05 Pulse 102 H 12/31/21 11:05 Resp 18 12/31/21 11:05 BP 96/62 12/31/21 11:05 Pulse Ox 93 L 12/31/21 11:05 Intake & Output 12/30/21 12/31/21 12/31/21 18:59 06:59 18:59 Intake Total 100 Balance 100 Weight 68.8 kg 68.6 kg Intake: Intake, IV Titration 100 Amount Piperacillin-Tazobactam 3 100 .375 gm In Sodium Chloride 0.9% 100 ml @ 25 mls/hr IVPB Q8HR [facility] Rx# :[id number] Other: Voiding Method Urinal Urinal Toilet Urinal # Voids 2 4 # Bowel Movements 1 - Labs CBC & Chem 7: 12/30/21 04:34 12/30/21 04:34
--- NOTE | 2021-12-31 15:53 | P.PN ---
Subjective Progress Note Date: 12/30/21 Principal diagnosis: Acute exacerbation CHF Acute cholecystitis/elevated liver enzymes and total bilirubin Acute renal injury Hyponatremia 66-year-old male who was seen in the emergency room. He came into the ER due to worsening shortness of breath with exertion. He does have a history of CHF, a bad heart valve and coronary artery disease. Patient states she is undergoing workup for possible stent as well as possible surgery on his heart valve. Joana blum also reports a decreased appetite and having abdominal bloating for the last 2 days. He did have one episode of vomiting the other day. Patient had abdominal ultrasound completed that did reveal mild gallbladder wall thickening. There is probably some non-shadowing stones or gallbladder polyps. Patient does report some mild discomfort in the right upper quadrant after eating. Denies any fever chills or sweats. Denies any change in bowel habits. Patient also has a prior history of lung cancer diagnosed 14 years ago and had undergone chemoradiation treatment. Denies any pressure to goal history on the abdomen. WBC is 11.5 hemoglobin 16.5 platelets 148; INR 1.4; Sodium 125 potassium 5.2 creatinine 1.25; Total bilirubin 3.2 AST 578 ALT 527 alk phos 186 Abdominal ultrasound completed that did reveal mild gallbladder wall thickening. There is probably some non-shadowing stones or gallbladder polyps Chest x-ray there is right pleural effusion. Cardiomegaly. Minimal heart anastasia lure as possible. EKG sinus rhythm left bundle branch block Patient reports marked improvement to symptoms; has been tolerating her diet Vital signs are reviewed and stable Lab review reveals stable CBC; sodium slightly improved at 129, BUN/creatinine remains stable at 35.1/1.1; liver enzymes continue to trend down Plan for cholecystectomy on Saturday Objective - Vital Signs Vital signs: Vital Signs Temp 97.4 F L 12/30/21 11:02 Pulse 109 H 12/30/21 11:02 Resp 18 12/30/21 11:02 BP 114/73 12/30/21 11:02 Pulse Ox 96 12/30/21 11:02 Intake & Output 12/29/21 12/30/21 12/30/21 18:59 06:59 18:59 Intake Total 100 Output Total 2 Balance 98 Weight 67.132 kg Intake: Intake, IV Titration 100 Amount Piperacillin-Tazobactam 3 100 .375 gm In Sodium Chloride 0.9% 100 ml @ 25 mls/hr IVPB Q8HR [facility] Rx# :[id number] Output: Urine 2 Other: Voiding Method Urinal Urinal Urinal # Voids 1 - Exam - Constitutional General appearance: Present: average body habitus, cooperative, no acute distress - EENT Eyes: Present: anicteric sclerae, EOMI, PERRLA, normal appearance ENT: Present: hearing grossly normal, normal oropharynx Ears: bilateral: normal - Neck Neck: Present: normal ROM. Absent: lymphadenopathy, rigidity, thyromegaly Carotids: negative: bruit present Thyroid: bilateral: normal size, negative: enlarged, nodule - Respiratory Respiratory: bilateral: CTA, negative: rales, rhonchi, wheezing - Cardiovascular Rhythm: regular Heart sounds: normal: S1, S2 Abnormal Heart Sounds: Absent: systolic murmur, diastolic murmur - Gastrointestinal General gastrointestinal: Present: normal bowel sounds, soft. Absent: distended, organomegaly, tenderness - Genitourinary Genitourinary Comment(s): deferred - Integumentary Integumentary: Present: normal turgor. Absent: jaundiced, rash, ulcer - Neurologic Neurologic: Present: CNII-XII intact. Absent: focal deficits - Musculoskeletal Musculoskeletal: Present: gait normal, strength equal bilaterally - Psychiatric Psychiatric: Present: A&O x's 3, appropriate affect, intact judgment & insight - Labs CBC & Chem 7: 12/30/21 04:34 12/30/21 04:34 Labs: Abnormal Lab Results - Last 24 Hours (Table) 12/30/21 12/30/21 Range/Units 04:34 04:34 Plt Count 113 L (140-440) X 10*3/uL MPV 13.9 H (9.5-12.2) fL Lymphocytes # 0.58 L (0.90-5.00) X 10*3/uL Monocytes # 1.35 H (0.20-1.00) X 10*3/uL Eosinophils # 0.01 L (0.04-0.35) X 10*3/uL Sodium 129 L (135-145) mmol/L Chloride 95 L (96-109) mmol/L Carbon Dioxide 19.4 L (20.0-27.5) mmol/L BUN 35.1 H (9.0-27.0) mg/dL BUN/Creatinine Ratio 31.91 H (12.00-20.00) Ratio Glucose 126 H (70-110) mg/dL Total Bilirubin 1.80 H (0.30-1.20) mg/dL AST 201 H (14-35) U/L ALT 389 H (10-49) U/L Alkaline Phosphatase 169 H (41-126) U/L Albumin/Globulin Ratio 1.54 L (1.60-3.17) g/dL Assessment and Plan Assessment: 1. Acute exacerbation CHF; patient received IV Lasix in ED; cardiology is co nsulted for further recommendations; order 2-D echo 2. Acute cholecystitis/ elevated liver enzymes and total bilirubin; patient reports slight upper quadrant pain; abdominal ultrasound reveals mild gallbladder wall thickening with some stones versus gallbladder polyps; general surgery on board; MRCP is ordered for further evaluation of possible choledocholithiasis; patient has been placed on IV antibiotics in form of IV Zosyn - Possible robotic cholecystectomy on 01/01/2022 3. Acute renal; IV fluid hydration with normal saline; monitor strict CECILE's, daily weights, renal function and electrolytes; avoid nephrotoxins 4. Hyponatremia; IV fluids in form of normal saline; monitor lites closely 5. Hyperlipidemia; patient currently not on statin therapy DVT prophylaxis; SCDs CODE STATUS; full code
--- NOTE | 2021-12-31 20:29 | P.PN ---
Subjective Progress Note Date: 12/31/21 Principal diagnosis: Acute exacerbation CHF Acute cholecystitis/elevated liver enzymes and total bilirubin Acute renal injury Hyponatremia 66-year-old male who was seen in the emergency room. He came into the ER due to worsening shortness of breath with exertion. He does have a history of CHF, a bad heart valve and coronary artery disease. Patient states she is undergoing workup for possible stent as well as possible surgery on his heart valve. Joana blum also reports a decreased appetite and having abdominal bloating for the last 2 days. He did have one episode of vomiting the other day. Patient had abdominal ultrasound completed that did reveal mild gallbladder wall thickening. There is probably some non-shadowing stones or gallbladder polyps. Patient does report some mild discomfort in the right upper quadrant after eating. Denies any fever chills or sweats. Denies any change in bowel habits. Patient also has a prior history of lung cancer diagnosed 14 years ago and had undergone chemoradiation treatment. Denies any pressure to goal history on the abdomen. WBC is 11.5 hemoglobin 16.5 platelets 148; INR 1.4; Sodium 125 potassium 5.2 creatinine 1.25; Total bilirubin 3.2 AST 578 ALT 527 alk phos 186 Abdominal ultrasound completed that did reveal mild gallbladder wall thickening. There is probably some non-shadowing stones or gallbladder polyps Chest x-ray there is right pleural effusion. Cardiomegaly. Minimal heart anastasia lure as possible. EKG sinus rhythm left bundle branch block Patient reports marked improvement to symptoms; has been tolerating her diet Vital signs are reviewed and stable Lab review reveals stable CBC; sodium slightly improved at 129, BUN/creatinine remains stable at 35.1/1.1; liver enzymes continue to trend down Plan for cholecystectomy on Saturday12/31/2021 Patient is seen and evaluated in room at bedside; denies any specific complaints Vital signs are reviewed and stable with temperature 7.6, pulse 2, respiration 18 and blood pressure of 96/62. O2 saturation of 93% on room air Patient is scheduled for laparoscopic cholecystectomy tomorrow morning once cleared by cardiology Cardiology on board and recommending to increase Lasix to 40 mg by mouth twice a day; we will monitor strict CECILE's Patient has LAD with severe mitral regurgitation and is being evaluated for possible CABG/mitral valve repair versus ECI of LAD Objective - Vital Signs Vital signs: Vital Signs Temp 97.6 F 12/31/21 11:05 Pulse 102 H 12/31/21 11:05 Resp 18 12/31/21 11:05 BP 96/62 12/31/21 11:05 Pulse Ox 93 L 12/31/21 11:05 Intake & Output 12/30/21 12/31/21 12/31/21 18:59 06:59 18:59 Intake Total 100 Balance 100 Weight 68.8 kg 68.6 kg Intake: Intake, IV Titration 100 Amount Piperacillin-Tazobactam 3 100 .375 gm In Sodium Chloride 0.9% 100 ml @ 25 mls/hr IVPB Q8HR [facility] Rx# :[id number] Other: Voiding Method Urinal Urinal Toilet Urinal # Voids 2 4 # Bowel Movements 1 - Exam - Constitutional General appearance: Present: average body habitus, cooperative, no acute distress - EENT Eyes: Present: anicteric sclerae, EOMI, PERRLA, normal appearance ENT: Present: hearing grossly normal, normal oropharynx Ears: bilateral: normal - Neck Neck: Present: normal ROM. Absent: lymphadenopathy, rigidity, thyromegaly Carotids: negative: bruit present Thyroid: bilateral: normal size, negative: enlarged, nodule - Respiratory Respiratory: bilateral: CTA, negative: rales, rhonchi, wheezing - Cardiovascular Rhythm: regular Heart sounds: normal: S1, S2 Abnormal Heart Sounds: Absent: systolic murmur, diastolic murmur - Gastrointestinal General gastrointestinal: Present: normal bowel sounds, soft. Absent: distended, organomegaly, tenderness - Genitourinary Genitourinary Comment(s): deferred - Integumentary Integumentary: Present: normal turgor. Absent: jaundiced, rash, ulcer - Neurologic Neurologic: Present: CNII-XII intact. Absent: focal deficits - Musculoskeletal Musculoskeletal: Present: gait normal, strength equal bilaterally - Psychiatric Psychiatric: Present: A&O x's 3, appropriate affect, intact judgment & insight - Labs CBC & Chem 7: 12/30/21 04:34 12/30/21 04:34 Assessment and Plan Assessment: 1. Acute exacerbation CHF; patient received IV Lasix in ED; cardiology is consulted for further recommendations; order 2-D echo 2. Acute cholecystitis/ elevated liver enzymes and total bilirubin; patient reports slight upper quadrant pain; abdominal ultrasound reveals mild gallbladder wall thickening with some stones versus gallbladder polyps; general surgery on board; MRCP is ordered for further evaluation of possible choledocholithiasis; patient has been placed on IV antibiotics in form of IV Zosyn - Possible robotic cholecystectomy on 01/01/2022 3. Acute renal; IV fluid hydration with normal saline; monitor strict CECILE's, daily weights, renal function and electrolytes; avoid nephrotoxins 4. Hyponatremia; IV fluids in form of normal saline; monitor lites closely 5. Hyperlipidemia; patient currently not on statin therapy DVT prophylaxis; SCDs CODE STATUS; full code
[2021-12-31 22:38] LABS: Phosphorus 3.3 mg/dL (2.4-5.1)
[2021-12-31 22:51] LABS: Hepatitis A Antibody IgM Nonreactive (Nonreactive); Hepatitis B Core IgM Nonreactive (Nonreactive); Hepatitis B Surface Antigen Nonreactive (Nonreactive); Hepatitis C IgG Antibody Nonreactive (Nonreactive)
[2021-12-31 22:58] LABS: African American GFR (CKD) 75.6 (60.0-200.0); Albumin 4.3 g/dL (3.8-4.9); Anion Gap 16.2 mmol/L (10.00-18.00); BUN/Creat Ratio 22.33 Ratio (12.00-20.00); Blood Urea Nitrogen 25.9 mg/dL (9.0-27.0); Calcium 9.3 mg/dL (8.7-10.3); Carbon Dioxide 24.1 mmol/L (20.0-27.5); Non-African American GFR(CKD) 65.3 (60.0-200.0)
[2022-01-01] MEDS ORDERED: HEPARIN SODIUM,PORCINE 2,500 UNIT in SODIUM CHLORIDE 0.9% 250 ML IRRIGATION PRN (07:00)
[2022-01-01] MEDS ORDERED: HEPARIN SODIUM,PORCINE 10,000 UNIT in SODIUM CHLORIDE 0.9% 1,000 ML IRRIGATION PRN (07:00)
[2022-01-01] MEDS: LOSARTAN 25 MG TAB PO SCH (07:41)
[2022-01-01] MEDS: PIPERACILLIN-TAZOBACTAM 3.375 GM in SODIUM CHLORIDE 0.9% 100 ML IVPB SCH ×2 (07:41→19:20)
[2022-01-01] MEDS: FUROSEMIDE 40 MG TAB PO SCH ×2 (07:42→18:25)
[2022-01-01] MEDS ORDERED: ALPRAZolam 0.5 MG TAB PO PRN (09:37)
[2022-01-01] MEDS ORDERED: ALPRAZolam 0.25 MG TAB PO PRN (09:37)
[2022-01-01 11:14] LABS: Glucose,Whole Blood 137 mg/dL (75-99)
[2022-01-01 11:19] LABS: ALT 225 U/L (4-49); AST 108 U/L (17-59); African American GFR (CKD) >90 (>60 ml/min/1.73 sqM); Albumin/Globulin Ratio 1.2; Alkaline Phosphatase 154 U/L (38-126); Anion Gap 10 mmol/L; Blood Urea Nitrogen 21 mg/dL (9-20); Calcium 8.7 mg/dL (8.4-10.2); Carbon Dioxide 27 mmol/L (22-30); Chloride 96 mmol/L (98-107); Globulin 3.3 g/dL; Glucose 134 mg/dL (74-99); Non-African American GFR(CKD) 81 (>60 ml/min/1.73 sqM); Sodium 133 mmol/L (137-145); Total Protein 7.3 g/dL (6.3-8.2)
--- NOTE | 2022-01-01 11:49 | P.PN ---
Subjective This is a 66-year-old male past medical history of chronic nicotine dependence, lung cancer in remission for the last 13 years, coronary artery disease. He follows with Dr. Oliva. We are following the patient for congestive heart failure, coronary artery disease and mitral regurgitation. Patient presents to the emergency room 12/28/21 with increased shortness of breath on exertion and orthopnea. He was also found to have elevated liver enzymes concerning for gallbladder disease. MRCP on 12/30/21 revealed no intraluminal gallstones or MRI evidence for acute cholecystitis, No suspicious intrahepatic or extrahepatic biliary dilatation, no CBD stones, liver is normal in size. 12/31: Records reviewed from 12/19/2021, Dr. Oliva attempted [facility] to evaluate for mitral regurgitation and aortic stenosis. This was incomplete as patient has esophageal strictures Cardiac catheterization revealed severe disease involving the mid LAD, intermediate to severe disease involving the mid to distal RCA. Plan was to schedule patient for cardiac MRI at [facility]. Patient's states that she has been waiting for a call and this has not been scheduled as of yet. Plan is for either open heart surgery for CABG and valve replacement/repair or stenting of the LAD and RCA without treatment for valve and final determination will be made after cardiac MRI is completed. Also discussed with the patient and his the option of a right heart catheterization. 01/01/2022 Patient seen and examined at bedside in no acute distress. Denies any chest pain or shortness of breath. His orthopnea and shortness of breath improved since admission. His liver enzymes have improved. Labs, sodium 133, potassium 4.0, BUN 21, serum troponin 0.9, AST 108, ALT 25, alkaline phosphatase 154 He's currently maintained on aspirin 81 mg daily, Lasix 40 mg twice a day, losartan 12.5 mg daily EXAMINATION: Vitals: BP 85/55, heart rate 87, afebrile oxygen saturations greater than 92% on room air GENERAL: Well-appearing, well-nourished and in no acute distress. NECK: Supple without JVD or thyromegaly. LUNGS: Breath sounds clear to auscultation bilaterally. Respiration equal and unlabored. No wheezes, rales or rhonchi. HEART: Regular rate and rhythm without murmurs, rubs or gallops. S1 and S2 heard. EXTREMITIES: Normal range of motion, trace bilateral edema. No clubbing or cyanosis. Peripheral pulses intact. ASSESSMENT: Left bundle branch block pattern twelve-lead Coronary artery disease involving the left main and the LAD and the RCA. Unrevascularized LAD Severe mitral regurgitation however awaiting cardiac MRI to assess severity Admitted with elevated AST ALT alkaline phosphatase and bilirubin with abdominal distention and bloating nausea vomiting concerning for gallbladder disease but symptoms appear to be related to heart failure and hepatic congestion. PLAN: -Continue Lasix PO 40 mg oral twice daily and ralph hose -Low dose losartan hold if SBP <100 -Monitor I&O and daily weights, renal function -Patient with unrevascularized LAD disease and additional severe MR being evalutaed for possible CABG/ mitral valve repair vs PCI LAD. Cholecystectomy does not appear urgent and would defer judie until further workup from a cardiology perspective. -At this time we recommend right heart catheterization to further evaluate cardiac output and right sided filling pressures. If right sided filling pressures extremely elevated findings may also correspond with congestive hepatopathy. -Plan for right heart catheterization with Dr. Oliva today. -I have discussed the risks, benefits and alternative therapies for the above- mentioned procedure and for both sedation/analgesia as well as necessary blood p roduct administration, if indicated, as they pertain to this patient. The patient has indicated understanding and acceptance of the risks and procedures discussed. Questions have been answered appropriately and he is agreeable to move forward with the above-stated procedure. Objective - Vital Signs Vital signs: Vital Signs Temp 97.9 F 01/01/22 04:49 Pulse 87 01/01/22 04:49 Resp 18 01/01/22 04:49 BP 85/55 01/01/22 04:49 Pulse Ox 97 01/01/22 05:37 Intake & Output 12/31/21 01/01/22 01/01/22 18:59 06:59 18:59 Weight 62.5 kg Other: Voiding Method Toilet Toilet Toilet Urinal Urinal Urinal - Labs CBC & Chem 7: 12/30/21 04:34 01/01/22 10:25 Labs: Abnormal Lab Results - Last 24 Hours (Table) 12/31/21 01/01/22 01/01/22 Range/Units 16:32 10:25 11:12 Sodium 131 L 133 L (135-145) mmol/L Chloride 90 L 96 L (96-109) mmol/L BUN 21 H (9-20) mg/dL BUN/Creatinine Ratio 22.33 H (12.00-20.00) Ratio Glucose 115 H 134 H (70-110) mg/dL POC Glucose (mg/dL) 137 H (75-99) mg/dL Total Bilirubin 3.0 H (0.2-1.3) mg/dL AST 108 H (17-59) U/L ALT 225 H (4-49) U/L Alkaline Phosphatase 154 H (38-126) U/L
[2022-01-01] MEDS ORDERED: IV FLUID CONTINUATION 1,000 ML IV ONE (13:00)
--- NOTE | 2022-01-01 13:12 | P.PN ---
Subjective Progress Note Date: 01/01/22 CHIEF COMPLAINT: Abdominal pain HISTORY OF PRESENT ILLNESS: This is 66-year-old male who had presented to the hospital with shortness of breath with exertion. Patient does have a history of CHF as well as a bad heart valve and coronary artery disease. On admission he did state that he had been having some abdominal discomfort and bloating as well as vomiting. He underwent abdominal ultrasound that revealed mild gallbladder wall thickening and possible gallstones versus gallbladder polyps. He did have elevated LFTs. Patient was tentatively scheduled for cholecystectomy if patient was cleared by cardiology, however cardiology did see patient and recommends deferring cholecystectomy until further workup from cardiology. Patient is scheduled for right heart catheterization today. He denies any abdominal pain, nausea, or vomiting. He had some clear liquids this morning which he states he tolerated well. Normal bowel movement. Total bilirubin up to 3.0 from 1.8 AST 108T 225 alk phos 154 PHYSICAL EXAM: VITAL SIGNS: Reviewed GENERAL: Well-developed in no acute distress. HEENT: No sclera icterus. Extraocular movements grossly intact. Moist buccal mucosa. Head is atraumatic, normocephalic. Hears conversational speech. No nasal drainage. NECK: Supple without lymphadenopathy. CHEST: Non-labored respirations and equal bilateral excursions. CARDIOVASCULAR: Palpable 2+ radial pulses. ABDOMEN: Soft. Nondistended. Nontender. MUSCULOSKELETAL: No clubbing or cyanosis. NEUROLOGIC: No focal or lateralizing signs. Cranial nerves II through XII grossly intact. PSYCH: Appropriate affect. Alert and oriented to person, place and time. SKIN: Well perfused. Good skin turgor. ASSESSMENT: 1. Acute cholecystitis 2. Elevated LFTs and total bilirubin 3. History of CHF, coronary artery disease with cardiac valve PLAN: 1. Keep nothing by mouth per cardiology 2. Daily CMP 3. MRCP ordered and reviewed, no evidence of choledocholithiasis 4. Further recommendations forthcoming per surgeon Thank you for this consultation, we will continue to follow. The impression and plan of care has been dictated as directed. Dr. Norris I performed a history and examination of this patient, discussed the same with the dictator. I agree with the dictator's note ,documented as a scribe. Any additional findings or plans will be noted. Objective - Vital Signs Vital signs: Vital Signs Temp 97.9 F 01/01/22 04:49 Pulse 87 01/01/22 04:49 Resp 18 01/01/22 04:49 BP 85/55 01/01/22 04:49 Pulse Ox 97 01/01/22 05:37 Intake & Output 12/31/21 01/01/22 01/01/22 18:59 06:59 18:59 Weight 62.5 kg Other: Voiding Method Toilet Toilet Urinal Urinal - Labs CBC & Chem 7: 12/30/21 04:34 01/01/22 10:25 Labs: Abnormal Lab Results - Last 24 Hours (Table) 12/31/21 Range/Units 16:32 Sodium 131 L (135-145) mmol/L Chloride 90 L (96-109) mmol/L BUN/Creatinine Ratio 22.33 H (12.00-20.00) Ratio Glucose 115 H (70-110) mg/dL
[2022-01-01] MEDS ORDERED: LIDOCAINE 1% INJ 10MG/ML (20 ML MDV) SQ ONE (13:24)
--- NOTE | 2022-01-01 13:48 | P.PCN ---
Date of Procedure: 01/01/22 Operative Findings: Right heart catheterization Performing physician Agnel Oliva MD Procedure performed #1 right heart catheterization #2 ultrasound guided access of the right common femoral vein Complication None Level of sedation Moderate sedation length of 22 minutes Procedure description After obtaining an informed consent the patient was brought to the cardiac labeling specialist. The right common femoral vein was cannulated using micropuncture technique, the micropuncture wire passed easily then I placed an 8-Sami sheath at the right common femoral vein. Right heart catheterization was performed using 6-Sami Holt catheter. The procedure was completed without any complication Finding #1 the pulmonary capillary wedge pressure was around 30 mmHg with a V wave up to about 45 mmHg #2 the pulmonary artery systolic pressure was 65 mmHg #3 the RV pressures were as follow systolic of 65 and end-diastolic of 18 mmHg #4 RA pressure was 16 mmHg Conclusion #1 elevated right and left filling pressures Postprocedure management Medical treatment and evaluated the severity of the mitral regurgitation
[2022-01-02] MEDS: PIPERACILLIN-TAZOBACTAM 3.375 GM in SODIUM CHLORIDE 0.9% 100 ML IVPB SCH ×2 (00:36→09:10)
[2022-01-02 01:35] VITALS: RESP 18
--- NOTE | 2022-01-02 03:34 | P.PN ---
Subjective Progress Note Date: 01/01/22 Acute exacerbation CHF Acute cholecystitis/elevated liver enzymes and total bilirubin Acute renal injury Hyponatremia 66-year-old male who was seen in the emergency room. He came into the ER due to worsening shortness of breath with exertion. He does have a history of CHF, a bad heart valve and coronary artery disease. Patient states she is undergoing workup for possible stent as well as possible surgery on his heart valve. Patient also reports a decreased appetite and having abdominal bloating for the last 2 days. He did have one episode of vomiting the other day. Patient had abdominal ultrasound completed that did reveal mild gallbladder wall thickening. There is probably some non-shadowing stones or gallbladder polyps. Patient does report some mild discomfort in the right upper quadrant after eating. Denies any fever chills or sweats. Denies any change in bowel habits. Patient also has a prior history of lung cancer diagnosed 14 years ago and had undergone chemoradiation treatment. Denies any pressure to goal history on the abdomen. WBC is 11.5 hemoglobin 16.5 platelets 148; INR 1.4; Sodium 125 potassium 5.2 creatinine 1.25; Total bilirubin 3.2 AST 578 ALT 527 alk phos 186 Abdominal ultrasound completed that did reveal mild gallbladder wall thickening. There is probably some non-shadowing stones or gallbladder polyps Chest x-ray there is right pleural effusion. Cardiomegaly. Minimal heart failure as possible. EKG sinus rhythm left bundle branch block Patient reports marked improvement to symptoms; has been tolerating her diet Vital signs are reviewed and stable Lab review reveals stable CBC; sodium slightly improved at 129, BUN/creatinine remains stable at 35.1/1.1; liver enzymes continue to trend down Plan for cholecystectomy on Saturday12/31/2021 Patient is seen and evaluated in room at bedside; denies any specific complaints Vital signs are reviewed and stable with temperature 7.6, pulse 2, respiration 18 and blood pressure of 96/62. O2 saturation of 93% on room air Patient is scheduled for laparoscopic cholecystectomy tomorrow morning once fernando ared by cardiology Cardiology on board and recommending to increase Lasix to 40 mg by mouth twice a day; we will monitor strict CECILE's Patient has LAD with severe mitral regurgitation and is being evaluated for possible CABG/mitral valve repair versus ECI of LAD 01/01/2022 Patient is seen in follow up this morning and awaiting to undergo right heart catheterization with DR. Oliva today to assess severity of mitral regurgitation. Patient is also being followed by general surgery and was tentatively scheduled for cholecystectomy. MRCP was negative and no signs of choledocholelithiasis. Patient is currently hungry and denies abdominal pain. Patient is NPO currently for the procedure. LFT trending down and will repeat am labs. Patient denies chest pain or palpitations. Patient is afebrile. Patient denies any nausea or vomiting at this time. Review of systems: Constitutional: No reports of fatigue, fever, or chills Cardiovascular: No reports of chest pain or palpitations Respiratory: No reports of shortness of breath or cough GI: No reports of nausea, vomiting, or diarrhea, reports stool lot of gas in the ostomy, reports bloody discharge and some clots per rectum : No reports of dysuria or retention, reports penis and scrotal swelling that persists Neurovascular: reports of generalized weakness All medications have been reviewed Active Medications Hydrocodone Bitart/Acetaminophen (Hydrocodone/Apap 7.5-325mg 1 Each Tab) 1 each PO Q6HR PRN PRN Reason: Pain Last Admin: 01/01/22 13:50 Dose: 1 each Documented by: Amiodarone HCl (Amiodarone 200 Mg Tab) 400 mg PO BID [facility] Last Admin: 01/01/22 08:18 Dose: 400 mg Documented by: Furosemide (Furosemide 10 Mg/Ml 4 Ml Vial) 40 mg IV BID@0900,1700 [facility] Last Admin: 01/01/22 17:33 Dose: 40 mg Documented by: Hydromorphone HCl (Hydromorphone 1 Mg/Ml 1 Ml Syringe) 1 mg IVP Q1H PRN PRN Reason: Pain Last Admin: 01/01/22 15:52 Dose: 1 mg Documented by: Azacitidine 160 mg/ Sodium (Chloride) 116 mls @ 232 mls/hr IV Q24H MARIELLA Cefepime HCl 2 gm/ Sodium (Chloride) 100 mls @ 25 mls/hr IVPB Q8HR [facility]; Protocol Last Admin: 01/01/22 15:52 Dose: 25 mls/hr Documented by: Fat Emulsion Intravenous 250 (ml/ IV Solution) 250 mls @ 21 mls/hr IV Tu [facility] Last Admin: 12/26/21 08:45 Dose: 21 mls/hr Documented by: Parenteral Vitamin Supplement 10 ml/ Zinc/Copper/Manganese/Selenium 1 ml/ Calcium Gluconate 1 gm/ Potassium Acetate 30 meq/ Magnesium Sulfate 12.18 meq/ Sodium Phosphate 15 mmol/ Sodium Acetate 28 meq/ Amino Acids/Dextrose 1,058 mls @ 85 mls/hr IV .BY DURATION [facility] Calcium Gluconate 1 gm/Potassium Acetate 30 meq/Magnesium Sulfate 12.18 meq/Sodium Phosphate 15 mmol/Sodium Acetate 28 meq/ Amino Acids/Dextrose 1,047 mls @ 85 mls/hr IV .BY DURATION [facility] Last Admin: 01/01/22 15:51 Dose: 85 mls/hr Documented by: Insulin Aspart (Insulin Aspart (Novolog) 100 Unit/Ml Vial) 0 unit SQ [id number] [facility]; Protocol Last Admin: 01/01/22 17:33 Dose: 4 unit Documented by: Insulin Detemir (Insulin Detemir (Levemir) 100 Unit/Ml Syr) 20 unit SQ DAILY@0700 [facility] Last Admin: 01/01/22 08:19 Dose: 20 unit Documented by: Metoprolol Tartrate (Metoprolol Tartrate 50 Mg Tab) 50 mg PO BID [facility] Last Admin: 01/01/22 08:19 Dose: 50 mg Documented by: Metronidazole (Metronidazole 500 Mg Tab) 500 mg PO TID [facility]; Protocol Last Admin: 01/01/22 15:52 Dose: 500 mg Documented by: Miscellaneous Information (Potassium Replacement Protocol 1 Each Misc) 1 each MISCELLANE DAILY PRN; Protocol PRN Reason: Per Protocol Miscellaneous Information (Magnesium Replacement Protocol 1 Each Misc) 1 each MISCELLANE DAILY PRN; Protocol PRN Reason: Per Protocol Patient's Own-- (Venetoclax) 70 each PO DAILY [facility] Last Admin: 12/23/21 10:53 Dose: Not Given Documented by: Patients Own-- (Posaconazole 300mg) 300 each PO DAILY [facility] Last Admin: 12/23/21 10:53 Dose: Not Given Documented by: Pantoprazole Sodium (Pantoprazole 40 Mg/10 Ml Vial) 40 mg IVP DAILY [facility] Last Admin: 01/01/22 08:19 Dose: 40 mg Documented by: Petrolatum (Petrolatum, White Oint 50 Gm Tube) 1 applic TOPICAL TID PRN; P rotocol PRN Reason: Dry Skin PHYSICAL EXAMINATION: GENERAL: The patient is currently awake, alert and oriented 3, Well developed, well nourished. HEENT: Pupils are round and equally reacting to light. EOMI. no scleral icterus. No conjunctival pallor. Normocephalic, atraumatic. No pharyngeal erythema. No thyromegaly. CARDIOVASCULAR: S1 and S2 muffled PULMONARY: diminished breath sounds bilaterally with no wheezing or rhonchi noted. ABDOMEN: soft. tender on exam right upper quadrant. thin built. non-distended, normoactive bowel sounds. No palpable organomegaly. MUSCULOSKELETAL: No joint swelling or deformity. EXTREMITIES: No cyanosis, clubbing, or pedal edema. NEUROLOGICAL: No gross neurological deficits noted. SKIN: No rashes. Assessment: -Acute exacerbation CHF, 2d echo ordered and pending, cardio following -Acute cholecystitis/ elevated liver enzymes and total bilirubin; general surgery following and MRCP was negative, LFT trending down -Acute renal failure; IV fluid hydration with normal saline; monitor strict CECILE's, daily weights, renal function and electrolytes; avoid nephrotoxins -Hyponatremia; IV fluids in form of normal saline; monitor electrolytes closely -Hyperlipidemia; patient currently not on statin therapy -GI prophylaxis -DVT prophylaxis -Full code Plan: Recommend to continue with current medications and management. Status post right heart catheterization to assess filling pressures and mitral regurgitation severity Cardiology following Surgery following as well and cholecystectomy cancelled as MRCP was negative and patient needs further cardiac work-up LFTs elevated although trending down and will repeat labs resume clear liquid diet Follow up on 2D echo Encourage increased activity as tolerated. Possible discharge in 24-48 hours. The impression and plan of care has been dictated by Soo Ocampo, prac titioner as directed. MD Ree I have performed a history and examination and MDM of this patient, discussed the same with the dictator, and agree with the dictator's assessment and plan as written ,documented as a scribe. Based on total visit time, I have performed more than 50% of the visit. Objective - Vital Signs Vital signs: Vital Signs Temp 97.9 F 01/01/22 04:49 Pulse 87 01/01/22 04:49 Resp 18 01/01/22 04:49 BP 85/55 01/01/22 04:49 Pulse Ox 97 01/01/22 05:37 Intake & Output 12/31/21 01/01/22 01/01/22 18:59 06:59 18:59 Weight 62.5 kg Other: Voiding Method Toilet Toilet Urinal Urinal - Labs CBC & Chem 7: 12/30/21 04:34 01/01/22 10:25 Labs: Abnormal Lab Results - Last 24 Hours (Table) 12/31/21 Range/Units 16:32 Sodium 131 L (135-145) mmol/L Chloride 90 L (96-109) mmol/L BUN/Creatinine Ratio 22.33 H (12.00-20.00) Ratio Glucose 115 H (70-110) mg/dL
[2022-01-02 06:46] LABS: ALT 208 U/L (4-49); AST 89 U/L (17-59); African American GFR (CKD) 86 (>60 ml/min/1.73 sqM); Albumin 3.5 g/dL (3.5-5.0); Albumin/Globulin Ratio 1.1; Alkaline Phosphatase 140 U/L (38-126); Anion Gap 7 mmol/L; Blood Urea Nitrogen 18 mg/dL (9-20); Calcium 8.4 mg/dL (8.4-10.2); Carbon Dioxide 32 mmol/L (22-30); Chloride 94 mmol/L (98-107); Globulin 3.1 g/dL; Glucose 104 mg/dL (74-99); Magnesium 1.9 mg/dL (1.6-2.3); Non-African American GFR(CKD) 74 (>60 ml/min/1.73 sqM); Potassium 3.1 mmol/L (3.5-5.1); Sodium 133 mmol/L (137-145); Total Bilirubin 2.5 mg/dL (0.2-1.3); Total Protein 6.6 g/dL (6.3-8.2)
[2022-01-02] MEDS ORDERED: Potassium Replacement Protocol 1 EACH MISC MISCELLANE PRN ×2 (07:20→10:07)
[2022-01-02 08:03] VITALS: BP 98/62; TEMP 97.5
--- NOTE | 2022-01-02 08:41 | CDI ---
Documentation Clarification Form Date: 01/02/2022 07:48:18 AM From: Guerline Florentino RN CCDS Admit Date: 12/29/2021 12:40:00 AM Patient Name: Juwan Stephens Visit Number: [id number] Discharge Date: ATTENTION: The Clinical Documentation Specialists (CDI) and [facility] Coding Staff appreciate your assistance in clarifying documentation. Please respond to the clarification below the line at the bottom and electronically sign. The CDI & [facility] Coding staff will review the response and follow-up if needed. Please note: Queries are made part of the Legal Health Record. If you have any questions, please contact the author of this message via ITS. Dr. Onel Kwong, DO Your patient has the documented diagnosis of Acute CHF 12/29, H&P & 12/30 01/01, Medicine progress notes. Additional information regarding the acuity and type, of CHF is requested. History/Risk Factors: 66-year-old male admitted with elevated AST, ALT, Alkaline phosphatase and bilirubin with abdominal distention and bloating nausea vomiting concerning for gallbladder disease, but symptoms appear to be related to heart failure and hepatic congestion. 12/31 & 01/01, Cardiology progress note. Medical History: CAD and Heart Failure. 12/29, Cardiology consult. Clinical Indicators: VS/Pulse OX: 12/28: B/P 106/68, 95, Temp 98.0 F Oral, RR 26, SpO2 96% room air. BNP 12/28: [id number] Echocardiogram Results: No echo on chart. Chest X Ray: 12/28 Right pleural effusion. Cardiomegaly. Cardiology Progress note 12/31: Regarding medications, patient is on Lasix 40mg oral daily at home as needed if his weight is greater than 149 pounds. He has been tried on Lopressor and atorvastatin, but these were discontinued as patient had ill effects. Treatment: 12/30 12/31 Lasix 40mg PO Daily; 12/31 to current Lasix 40mg PO BID; 12/30 current Cozaar 12.5mg PO Daily. In your professional opinion, can you please clarify the type of CHF if known? [ ] Acute Systolic Heart Failure (reduced EF) [ ] Chronic Systolic Heart Failure (reduced EF) [ X ] Acute on Chronic Systolic Heart Failure (reduced EF) EF 40% [ ] Acute Diastolic Heart Failure (preserved EF) [ ] Chronic Diastolic Heart Failure (preserved EF) [ ] Acute on Chronic Diastolic Heart Failure (preserved EF) [ ] Acute Systolic & Diastolic Heart Failure [ ] Chronic Systolic & Diastolic Heart Failure [ ] Acute on Chronic Heart Failure Systolic & Diastolic Heart Failure [ ] Other, please specify [ ] Unable to determine (Template Last Revised: November 2020) MTDD
[2022-01-02] MEDS ORDERED: ASPIRIN 81 MG PO SCH (09:00)
[2022-01-02] MEDS: FUROSEMIDE 40 MG TAB PO SCH (09:09)
[2022-01-02] MEDS: LOSARTAN 25 MG TAB PO SCH (09:11)
--- NOTE | 2022-01-02 10:40 | P.PN ---
Subjective This is a 66-year-old male past medical history of chronic nicotine dependence, lung cancer in remission for the last 13 years, coronary artery disease. He follows with Dr. Oliva. We are following the patient for congestive heart failure, coronary artery disease and mitral regurgitation. Patient presents to the emergency room 12/28/21 with increased shortness of breath on exertion and orthopnea. He was also found to have elevated liver enzymes concerning for gallbladder disease. MRCP on 12/30/21 revealed no intraluminal gallstones or MRI evidence for acute cholecystitis, No suspicious intrahepatic or extrahepatic biliary dilatation, no CBD stones, liver is normal in size. 12/31: Records reviewed from 12/19/2021, Dr. Oliva attempted CHINO to evaluate for mitral regurgitation and aortic stenosis. This was incomplete as patient has esophageal strictures Cardiac catheterization revealed severe disease involving the mid LAD, intermediate to severe disease involving the mid to distal RCA. Plan was to schedule patient for cardiac MRI at [facility]. Patient's states that she has been waiting for a call and this has not been scheduled as of yet. Plan is for either open heart surgery for CABG and valve replacement/repair or stenting of the LAD and RCA without treatment for valve and final determination will be made after cardiac MRI is completed. Also discussed with the patient and his the option of a right heart catheterization. 01/02/2022 Patient seen and examined at bedside in no acute distress. Denies any chest pain or shortness of breath. His orthopnea and shortness of breath improved since admission and resolved. His liver enzymes have improved. He underwent right heart catheterization with Dr. Oliva that revealed elevated right and left filling pressures,pulmonary capillary wedge pressure was around 30 mmHg with a V wave up to about 45 mmHg, pulmonary artery systolic pressure was 65 mmHg, RV pressures were as follow systolic of 65 and end-diastolic of 18 mmHg, RA pressure was 16 mmHg Labs, sodium 133, potassium 3.1, BUN 18, serum renin 0.0, magnesium 1.9, AST 89. ALT 208, alkaline phosphatase He's currently maintained on aspirin 81 mg daily, Lasix 40 mg twice a day, losartan 12.5 mg daily EXAMINATION: Vitals: BP 85/55, heart rate 87, afebrile oxygen saturations greater than 92% on room air GENERAL: Well-appearing, well-nourished and in no acute distress. NECK: Supple without JVD or thyromegaly. LUNGS: Breath sounds clear to auscultation bilaterally. Respiration equal and unlabored. No wheezes, rales or rhonchi. HEART: Regular rate and rhythm without murmurs, rubs or gallops. S1 and S2 heard. EXTREMITIES: Normal range of motion, trace bilateral edema. No clubbing or cyanosis. Peripheral pulses intact. SKIN: Right groin cath site, clean, dry, intact, no hematoma ASSESSMENT: Acute on chronic heart failure with reduced ejection fraction 40% from echo 11/23/2021 in the office Coronary artery disease involving the left main and the LAD and the RCA. Unrevascularized LAD Severe mitral regurgitation however awaiting cardiac MRI to assess severity Admitted with elevated AST ALT alkaline phosphatase and bilirubin with abdominal distention and bloating nausea vomiting concerning for gallbladder disease but symptoms appear to be related to heart failure and hepatic congestion. Left bundle branch block pattern Hypokalemia, replaced PLAN: -Continue Lasix PO 40 mg oral twice daily and ralph hose and continue losartan -Patient with unrevascularized LAD disease and additional severe MR being evalutaed for possible CABG/ mitral valve repair vs PCI LAD. Cholecystectomy does not appear urgent and would defer judie until further workup from a c ardiology perspective. -From cardiology perspective, patient stable for discharged home. Follow up with Dr. Oliva, patient has an appointment on 01/09/2022 at 3 PM Objective - Vital Signs Vital signs: Vital Signs Temp 97.5 F L 01/02/22 07:30 Pulse 89 01/02/22 07:30 Resp 18 01/02/22 07:30 BP 98/62 01/02/22 07:30 Pulse Ox 97 01/02/22 07:30 Intake & Output 01/01/22 01/02/22 01/02/22 18:59 06:59 18:59 Intake Total 265 118 Balance 265 118 Weight 66.9 kg Intake: IV 25 Oral 240 118 Other: Voiding Method Toilet Urinal # Voids 1 - Labs CBC & Chem 7: 12/30/21 04:34 01/02/22 05:47 Labs: Abnormal Lab Results - Last 24 Hours (Table) 01/01/22 01/01/22 01/02/22 Range/Units 10:25 11:12 05:47 Sodium 133 L 133 L (137-145) mmol/L Potassium 3.1 L (3.5-5.1) mmol/L Chloride 96 L 94 L (98-107) mmol/L Carbon Dioxide 32 H (22-30) mmol/L BUN 21 H (9-20) mg/dL Glucose 134 H 104 H (74-99) mg/dL POC Glucose (mg/dL) 137 H (75-99) mg/dL Total Bilirubin 3.0 H 2.5 H (0.2-1.3) mg/dL AST 108 H 89 H (17-59) U/L ALT 225 H 208 H (4-49) U/L Alkaline Phosphatase 154 H 140 H (38-126) U/L
[2022-01-02] MEDS: POTASSIUM CHLORIDE ER 20 MEQ TAB.ER PO SCH ×2 (11:19→12:06)
[2022-01-02 11:32] VITALS: PULSE 99
--- NOTE | 2022-01-02 12:35 | P.PN ---
Subjective Progress Note Date: 01/02/22 CHIEF COMPLAINT: Abdominal pain HISTORY OF PRESENT ILLNESS: This is 66-year-old male who had presented to the hospital with shortness of breath with exertion. Patient does have a history of CHF as well as a bad heart valve and coronary artery disease. On admission he did state that he had been having some abdominal discomfort and bloating as well as vomiting. He underwent abdominal ultrasound that revealed mild gallbladder wall thickening and possible gallstones versus gallbladder polyps. Yesterday he underwent cardiac catheterization that revealed elevated right and left filling pressures. He is without any complaints of abdominal pain, chest pain nausea or vomiting. He is been afebrile. LFTs are improving. Total bilirubin 2.5 AST 89 field 11/15/2007 alk phos 140 PHYSICAL EXAM: VITAL SIGNS: Reviewed GENERAL: Well-developed in no acute distress. HEENT: No sclera icterus. Extraocular movements grossly intact. Moist buccal mucosa. Head is atraumatic, normocephalic. Hears conversational speech. No nasal drainage. NECK: Supple without lymphadenopathy. CHEST: Non-labored respirations and equal bilateral excursions. CARDIOVASCULAR: Palpable 2+ radial pulses. ABDOMEN: Soft. Nondistended. Nontender. MUSCULOSKELETAL: No clubbing or cyanosis. NEUROLOGIC: No focal or lateralizing signs. Cranial nerves II through XII grossly intact. PSYCH: Appropriate affect. Alert and oriented to person, place and time. SKIN: Well perfused. Good skin turgor. ASSESSMENT: 1. Acute cholecystitis 2. Elevated LFTs and total bilirubin 3. History of CHF, coronary artery disease with cardiac valve PLAN: 1. No plans on surgical intervention at this time 2. Continue with medical treatment and recommendations from cardiology 3. Patient is clear from general surgery for discharge. Follow-up with general surgery and 4 weeks. Thank you for this consultation, we will sign off at this time. The impression and plan of care has been dictated as directed. Dr. Norris I performed a history and examination of this patient, discussed the same with the dictator. I agree with the dictator's note ,documented as a scribe. Any additional findings or plans will be noted. Objective - Vital Signs Vital signs: Vital Signs Temp 97.5 F L 01/02/22 07:30 Pulse 89 01/02/22 07:30 Resp 18 01/02/22 07:30 BP 98/62 01/02/22 07:30 Pulse Ox 97 01/02/22 07:30 Intake & Output 01/01/22 01/02/22 01/02/22 18:59 06:59 18:59 Intake Total 265 118 Balance 265 118 Weight 66.9 kg Intake: IV 25 Oral 240 118 Other: Voiding Method Toilet Urinal # Voids 1 - Labs CBC & Chem 7: 12/30/21 04:34 01/02/22 05:47 Labs: Abnormal Lab Results - Last 24 Hours (Table) 01/01/22 01/01/22 01/02/22 Range/Units 10:25 11:12 05:47 Sodium 133 L 133 L (137-145) mmol/L Potassium 3.1 L (3.5-5.1) mmol/L Chloride 96 L 94 L (98-107) mmol/L Carbon Dioxide 32 H (22-30) mmol/L BUN 21 H (9-20) mg/dL Glucose 134 H 104 H (74-99) mg/dL POC Glucose (mg/dL) 137 H (75-99) mg/dL Total Bilirubin 3.0 H 2.5 H (0.2-1.3) mg/dL AST 108 H 89 H (17-59) U/L ALT 225 H 208 H (4-49) U/L Alkaline Phosphatase 154 H 140 H (38-126) U/L
--- NOTE | 2022-01-04 09:14 | P.DS ---
Providers Date of admission: 12/29/21 00:40 Expected date of discharge: 01/02/22 Attending physician: Richardson Burrows Consults: 12/29/21 00:40 Consult Physician Routine Consulting Provider: Angel Oliva Consult Reason/Comments: known Do you want consulting provider notified?: Yes 12/29/21 00:42 Consult Physician Routine Consulting Provider: Nadia Norris Consult Reason/Comments: cholecystitis? Do you want consulting provider notified?: Yes Primary care physician: Cristy Hernandez Hospital Course: Final diagnosis -Acute exacerbation CHF, acute on chronic heart failure with reduced ejection fraction of 40% from 2-D echo on 11/23/2021 -Urinary artery disease involving the left main and LAD and the RCA on revascularized LAD with severe mitral regurgitation -Acute cholecystitis/ elevated liver enzymes and total bilirubin, MRCP was negative -Acute renal failure; improved -Hyponatremia -Hyperlipidemia -GI prophylaxis -DVT prophylaxis -Full code Discharge disposition Patient is being discharged in a stable condition with guarded prognosis to home. Patient will follow-up with Dr. Hernandez in the outpatient setting upon discharge. Patient is to continue to follow up with cardiology Dr. Oliva along with general surgery as scheduled. Total time taken is greater than 35 minutes. Hospital course This is a 66-year-old male who was recently admitted acute exacerbation of CHF along with acute cholecystitis with elevated liver enzymes and bilirubin along with acute kidney injury and hyponatremia. General surgery along with cardiology following and initially was planned for a possible cholecystectomy although underwent MRCP which was negative for no signs of choledocholithiasis and considered nonemergent at this time as his cardiac history and current CHF needs to be addressed prior to surgery. Patient underwent right heart catheterization to evaluate pressures and the severity of stenosis and the mitral valve. Patient with some minimal lower extremity edema and encourage the patient elevate lower extremities while at rest and continue with Keshawn wraps from the toes up to the knees and/or compression stockings in the outpatient setting. Patient will follow-up with Dr. Oliva in the outpatient setting as scheduled prior to any surgeries. Recommend repeat labs in the outpatient setting. Patient is reporting feeling much better and would like to go home today. Currently no reports of chest pain, shortness of breath, or palpitations. Patient is afebrile. No reports of nausea or vomiting and patient is tolerating diet. Patient will be discharged home today. PHYSICAL EXAMINATION: GENERAL: The patient is awake, alert and oriented 3, Well developed, well nourished. HEENT: Pupils are round and equally reacting to light. EOMI. no scleral icterus. No conjunctival pallor. Normocephalic, atraumatic. No pharyngeal erythema. No thyromegaly. CARDIOVASCULAR: S1 and S2 muffled PULMONARY: diminished breath sounds bilaterally with no wheezing or rhonchi noted. ABDOMEN: soft. Less tender, non distended, normoactive bowel sounds. No palpable organomegaly. MUSCULOSKELETAL: No joint swelling or deformity. EXTREMITIES: No cyanosis, clubbing, or pedal edema. NEUROLOGICAL: Gross neurological examination did not reveal any focal deficits. SKIN: No rashes. Please refer to medication reconciliation sheet for a list of medications. The impression and plan of care has been dictated by Soo Ocampo, Nurse Practitioner as directed. Dr. Farhad MD I have performed a history and examination and MDM of this patient, discussed the same with the dictator, and agree with the dictator's assessment and plan as written ,documented as a scribe. Based on total visit time, I have performed more than 50% of the visit. Patient Condition at Discharge: Fair Plan - Discharge Summary Discharge Rx Participant: No New Discharge Prescriptions: New Aspirin 81 mg PO DAILY 30 Days #30 tab Losartan [Cozaar] 12.5 mg PO DAILY 60 Days #30 tab Furosemide [Lasix] 40 mg PO BID@0900,1600 30 Days #60 tab Potassium Chloride [Klor-Con 20] 20 meq PO DAILY #30 tab Discharge Medication List Aspirin 81 mg PO DAILY 30 Days #30 tab 01/02/22 [Rx] Furosemide [Lasix] 40 mg PO BID@0900,1600 30 Days #60 tab 01/02/22 [Rx] Losartan [Cozaar] 12.5 mg PO DAILY 60 Days #30 tab 01/02/22 [Rx] Potassium Chloride [Klor-Con 20] 20 meq PO DAILY #30 tab 01/02/22 [Rx] Follow up Appointment(s)/Referral(s): Angel Oliva MD [Family Provider] - 01/09/22 3:00 pm (At the [facility]) Nadia Norris MD [STAFF PHYSICIAN] - 4 Weeks (please call for an appointment ) Cristy Hernandez DO [Primary Care Provider] - 1-2 days Ambulatory/Diagnostic Orders: Basic Metabolic Panel [LAB.AMB] Time Frame: 3 Days, Location: None Selected Patient Instructions/Handouts: Cholecystitis (GEN), Heart Catheterization (GEN) Activity/Diet/Wound Care/Special Instructions: Activity Limited until follow-up Follow-up primary care provider Follow-up cardiology outpatient at scheduled appointment Follow-up with surgery in the outpatient setting Continue current diet heart healthy Continue with medications as prescribed Recommend repeat labs in the outpatient setting Discharge Disposition: HOME SELF-CARE
== END 2022-01-02 14:20 | disposition home or self-care (01) | DRG 287 ==
LOC: EC 20:49 → 5NMEDONC 12-29 00:40 → 6NMEDSUR 01-01 18:18
PROVIDERS: ADMIT Hospitalist; ATTEND Hospitalist
PROC: 4A023N6 Measurement of Cardiac Sampling and Pressure, Right Heart, Percutaneous Approach (ICD-10-PCS; principal; 2022-01-01 17:15)
DX: I50.23 Acute on chronic systolic (congestive) heart failure (principal); N17.9 Acute kidney failure, unspecified; E87.1 Hypo-osmolality and hyponatremia; K81.0 Acute cholecystitis; K22.2 Esophageal obstruction; I25.10 Atherosclerotic heart disease of native coronary artery without angina pectoris; K82.4 Cholesterolosis of gallbladder; E78.5 Hyperlipidemia, unspecified; I44.7 Left bundle-branch block, unspecified; E87.6 Hypokalemia; F41.9 Anxiety disorder, unspecified; R74.8 Abnormal levels of other serum enzymes; R11.2 Nausea with vomiting, unspecified; R14.0 Abdominal distension (gaseous); I34.0 Nonrheumatic mitral (valve) insufficiency; R74.01 Elevation of levels of liver transaminase levels; Z79.82 Long term (current) use of aspirin; Z79.899 Other long term (current) drug therapy; Z85.118 Personal history of other malignant neoplasm of bronchus and lung; Z87.891 Personal history of nicotine dependence; Z92.21 Personal history of antineoplastic chemotherapy; Z92.3 Personal history of irradiation; Z95.2 Presence of prosthetic heart valve
CPT/HCPCS: 36415; 71045; 71046; 74181; 76705; 80053; 80069; 80074; 83735; 83880; 84100; 84484; 85025; 85610; 85730; 93005; 93451; 94640; 96361; 96374; 99285

== ENCOUNTER → 2022-01-05 | Outpatient (CLI) | payer MEDICARE, BC ==
[2022-01-05 15:00] LABS: African American GFR (CKD) 102.8 (60.0-200.0); Anion Gap 10.2 mmol/L (10.00-18.00); BUN/Creat Ratio 12.44 Ratio (12.00-20.00); Blood Urea Nitrogen 11.2 mg/dL (9.0-27.0); Calcium 9.2 mg/dL (8.7-10.3); Carbon Dioxide 27.8 mmol/L (20.0-27.5); Non-African American GFR(CKD) 88.7 (60.0-200.0); Potassium 3.7 mmol/L (3.5-5.5)
== END | disposition home or self-care (01) ==
LOC: LABWHC1 10:12
PROVIDERS: ATTEND Registered Nurse
DX: E87.6 Hypokalemia (principal)
CPT/HCPCS: 36415; 80048

== ENCOUNTER 2022-01-17 17:49 | Inpatient (IN) | payer MEDICARE, BC ==
[2022-01-17 20:17] LABS: Basophils % (A) 1 %; Eosinophils % (A) 1 %; HCT 41.4 % (39.0-53.0); HGB 13.9 gm/dL (13.0-17.5); Lymphocytes # (A) 0.8 k/uL (1.0-4.8); Lymphocytes % (A) 14 %; MCH 30.8 pg (25.0-35.0); MCHC 33.7 g/dL (31.0-37.0); MCV 91.7 fL (80.0-100.0); Mean Platelet Volume 10.3; Monocytes # (A) 0.6 k/uL (0-1.0); Monocytes % (A) 11 %; Neutrophils # (A) 3.8 k/uL (1.3-7.7); Neutrophils % (A) 72 %; Platelet Count 128 k/uL (150-450); RBC 4.52 m/uL (4.30-5.90); RDW 13.3 % (11.5-15.5); WBC 5.3 k/uL (3.8-10.6)
[2022-01-17 20:34] LABS: ALT 41 U/L (4-49); AST 33 U/L (17-59); African American GFR (CKD) >90 (>60 ml/min/1.73 sqM); Albumin 4.1 g/dL (3.5-5.0); Alkaline Phosphatase 176 U/L (38-126); Anion Gap 10 mmol/L; Blood Urea Nitrogen 25 mg/dL (9-20); Calcium 8.9 mg/dL (8.4-10.2); Carbon Dioxide 22 mmol/L (22-30); Chloride 90 mmol/L (98-107); Glucose 115 mg/dL (74-99); Non-African American GFR(CKD) >90 (>60 ml/min/1.73 sqM); Potassium 4.9 mmol/L (3.5-5.1); Sodium 122 mmol/L (137-145); Total Bilirubin 1.7 mg/dL (0.2-1.3); Total Protein 7.4 g/dL (6.3-8.2)
--- NOTE | 2022-01-17 20:50 | ED ---
SOB HPI - General Chief Complaint: Shortness of Breath Stated Complaint: Swollen Feet/Legs Time Seen by Provider: 01/17/22 20:39 Source: patient, family, RN notes reviewed Mode of arrival: wheelchair - History of Present Illness Initial Comments: This is a pleasant 66-year-old male with a history of coronary artery disease, cancer, heart failure, valvular heart disease and hyperlipidemia. He presents today's complaining of increased edema to both legs. Patient states when he was an inpatient here for congestive heart failure at the end of December they decreased his furosemide from 40 mg daily to 20 mg daily. Complaining of increased edema but no significant shortness of breath. He states that is not out of the ordinary. No fever or chills. She had a recent cardiac catheter on 12/19/2021 which showed 2 coronary blockages and a bad valve. Patient apparent ly had an MRI today at [facility] to assess the heart valve. No headache, no fever or chills, no changes in vision or hearing, no sore throat or difficulty with speech, no neck pain, no chest pain or shortness of breath, no abdominal pain, no nausea or vomiting, no changes in urination or bowel movements, no numbness or tingling, no extremity pain, no skin rashes or lesions. Past medical, surgical, social, family history reviewed. - Related Data Home Medications Medication Instructions Recorded Confirmed Furosemide [Lasix] 20 mg PO BID@0900,1600 01/17/22 01/17/22 Potassium Chloride [Klor-Con 20] 20 meq PO W/SUPPER 01/17/22 01/17/22 carvediloL [Coreg] 3.125 mg PO BID-W/MEALS 01/17/22 01/17/22 Previous Rx's Medication Instructions Recorded Aspirin 81 mg PO DAILY 30 Days #30 tab 01/02/22 Losartan [Cozaar] 12.5 mg PO DAILY 60 Days #30 tab 01/02/22 Allergies Allergy/AdvReac Type Severity Reaction Status Date / Time No Known Allergies Allergy Verified 01/17/22 21:11 Review of Systems ROS Statement: Those systems with pertinent positive or pertinent negative responses have been documented in the HPI. ROS Other: All systems not noted in ROS Statement are negative. Past Medical History Past Medical History: Coronary Artery Disease (CAD), Cancer, Heart Failure, Hyperlipidemia Additional Past Medical History / Comment(s): Pt states recent cardiac cath 12/19/21 showed 2 coronary blockages and a "bad valve" which is to be evaluated by MRI at [facility] soon, R lung cancer 14 years ago/treated with chemo and radiation/sees Dr. Escobar, cardiomegaly, lower extremity edema, pt has had pericardiacentesis. History of Any Multi-Drug Resistant Organisms: None Reported Past Surgical History: Heart Catheterization, Orthopedic Surgery Additional Past Surgical History / Comment(s): 12/19/21 R/L cardiac cath, attempted CHINO, L foot "reattached" and has hardware, colonoscopy. Past Anesthesia/Blood Transfusion Reactions: No Reported Reaction Past Psychological History: No Psychological Hx Reported Smoking Status: Former smoker Past Alcohol Use History: None Reported Past Drug Use History: None Reported - Past Family History Mother Family Medical History: Cancer Father Family Medical History: No Reported History General Exam - General Exam Comments Initial Comments: Patient does not appear to be in any significant distress at the time of entering the room. No adventitious lung sounds. Cranial nerves II through XII grossly intact General appearance: alert, in no apparent distress Head exam: Present: atraumatic, normocephalic, normal inspection Eye exam: Present: normal appearance, PERRL, EOMI. Absent: scleral icterus, conjunctival injection, periorbital swelling ENT exam: Present: normal exam, normal oropharynx, mucous membranes moist, TM's normal bilaterally Neck exam: Present: normal inspection, full ROM. Absent: tenderness, meningismus, lymphadenopathy Respiratory exam: Present: normal lung sounds bilaterally. Absent: respiratory distress, wheezes, rales, rhonchi, stridor Cardiovascular Exam: Present: regular rate, normal rhythm, normal heart sounds, systolic murmur (Systolic murmur left sternal border noted, grade 3/6). Absent: diastolic murmur, rubs, gallop, clicks GI/Abdominal exam: Present: soft, normal bowel sounds. Absent: distended, tenderness, guarding, rebound, rigid Extremities exam: Present: full ROM, normal capillary refill, pedal edema (Bilateral lower extremity edema without evidence of vascular insult or infectious process). Absent: tenderness, joint swelling, calf tenderness Back exam: Present: normal inspection Neurological exam: Present: alert, oriented X3, CN II-XII intact Psychiatric exam: Present: normal affect, normal mood Skin exam: Present: warm, dry, intact, normal color. Absent: rash Course Vital Signs 01/17/22 01/17/22 19:18 21:40 Temperature 97.7 F Pulse Rate 93 94 Respiratory 18 18 Rate Blood Pressure 91/58 99/67 O2 Sat by Pulse 98 97 Oximetry - Reevaluation(s) Reevaluation #1: 01/17/22 21:54 Medical record is reviewed Symptoms are--essentially unchanged. Patient is informed of results and questions answered Patient in no distress 01/17/22 21:55 Reevaluation #2: 01/17/22 22:25 Medical record is reviewed Symptoms are essentially unchanged here. Chest x-ray shows improving right pleural effusion compared to the previous study. Patient is informed of results and questions answered Patient in no distress - Consultations Consultation #1: Case discussed with Amaya from [facility]. Patient will be admitted under their group for hyponatremia Medical Decision Making - Medical Decision Making Patient in no distress. Patient's systolic blood pressure is only 91. Patient is on multiple antihypertensives as well as furosemide. We'll repeat vital signs prior to giving a dose of Lasix. No adventitious lung sounds are evidence of pulmonary edema. No respiratory distress. I'm going to obtain a venous Doppler due to the patient's recent hospitalization. The case was discussed in detail with ED attending physician. Presentation, findings, treatment plan discussed in detail. Patient was given 40 mg of Lasix here in the ED. We'll have him contact his treating plant operator in the morning for further instructions. Emphasized elevation and compression stockings. Follow-up with your regular physician as directed. Return to the ER immediately if any symptoms worsen, new symptoms arise, or any other problems develop. All findings discussed with the patient. Discussed with [facility]. - Lab Data Result diagrams: 01/17/22 19:26 01/17/22 19:26 Lab Results 01/17/22 01/17/22 01/17/22 Range/Units 19:26 19: 19: WBC 5.3 (3.8-10.6) k/uL RBC 4.52 (4.30-5.90) m/uL Hgb 13.9 (13.0-17.5) gm/dL Hct 41.4 (39.0-53.0) % MCV 91.7 (80.0-100.0) fL MCH 30.8 (25.0-35.0) pg MCHC 33.7 (31.0-37.0) g/dL RDW 13.3 (11.5-15.5) % Plt Count 128 L (150-450) k/uL MPV 10.3 Neutrophils % 72 % Lymphocytes % 14 % Monocytes % 11 % Eosinophils % 1 % Basophils % 1 % Neutrophils # 3.8 (1.3-7.7) k/uL Lymphocytes # 0.8 L (1.0-4.8) k/uL Monocytes # 0.6 (0-1.0) k/uL Eosinophils # 0.0 (0-0.7) k/uL Basophils # 0.0 (0-0.2) k/uL Sodium 122 L (137-145) mmol/L Potassium 4.9 (3.5-5.1) mmol/L Chloride 90 L (98-107) mmol/L Carbon Dioxide 22 (22-30) mmol/L Anion Gap 10 mmol/L BUN 25 H (9-20) mg/dL Creatinine 0.87 (0.66-1.25) mg/dL Est GFR (CKD-EPI)AfAm >90 (>60 ml/min/1.73 sqM) Est GFR (CKD-EPI)NonAf >90 (>60 ml/min/1.73 sqM) Glucose 115 H (74-99) mg/dL Calcium 8.9 (8.4-10.2) mg/dL Total Bilirubin 1.7 H (0.2-1.3) mg/dL AST 33 (17-59) U/L ALT 41 (4-49) U/L Alkaline Phosphatase 176 H (38-126) U/L Troponin I 0.020 (0.000-0.034) ng/mL NT-Pro-B Natriuret Pep pg/mL Total Protein 7.4 (6.3-8.2) g/dL Albumin 4.1 (3.5-5.0) g/dL 01/17/22 Range/Units 19:26 WBC (3.8-10.6) k/uL RBC (4.30-5.90) m/uL Hgb (13.0-17.5) gm/dL Hct (39.0-53.0) % MCV (80.0-100.0) fL MCH (25.0-35.0) pg MCHC (31.0-37.0) g/dL RDW (11.5-15.5) % Plt Count (150-450) k/uL MPV Neutrophils % % Lymphocytes % % Monocytes % % Eosinophils % % Basophils % % Neutrophils # (1.3-7.7) k/uL Lymphocytes # (1.0-4.8) k/uL Monocytes # (0-1.0) k/uL Eosinophils # (0-0.7) k/uL Basophils # (0-0.2) k/uL Sodium (137-145) mmol/L Potassium (3.5-5.1) mmol/L Chloride (98-107) mmol/L Carbon Dioxide (22-30) mmol/L Anion Gap mmol/L BUN (9-20) mg/dL Creatinine (0.66-1.25) mg/dL Est GFR (CKD-EPI)AfAm (>60 ml/min/1.73 sqM) Est GFR (CKD-EPI)NonAf (>60 ml/min/1.73 sqM) Glucose (74-99) mg/dL Calcium (8.4-10.2) mg/dL Total Bilirubin (0.2-1.3) mg/dL AST (17-59) U/L ALT (4-49) U/L Alkaline Phosphatase (38-126) U/L Troponin I (0.000-0.034) ng/mL NT-Pro-B Natriuret Pep 7800 pg/mL Total Protein (6.3-8.2) g/dL Albumin (3.5-5.0) g/dL - EKG Data EKG Comments: EKG done at 1926 and read by the ED attending physician reveals sinus rhythm with a left bundle branch block. QRS duration is 150 ms. No evidence of concordance. Normal intervals otherwise. No evidence of acute changes. When compared to the previous study from 12/28/2021 there are no significant changes. - Radiology Data Radiology results: report reviewed, image reviewed Disposition Clinical Impression: Peripheral edema, History of congestive heart failure, Hyponatremia Disposition: ADMITTED IP TO THIS [facility] Condition: Stable Time of Disposition: 22:44 Decision to Admit Reason: Admit from EC Decision Time: 22:45
--- NOTE | 2022-01-17 21:26 | XR ---
EXAMINATION TYPE: XR chest 2V DATE OF EXAM: 01/17/2022 COMPARISON: 12/30/2021 HISTORY: Vertex of breath TECHNIQUE: Frontal and lateral views of the chest are obtained. FINDINGS: Right lower lobe and to lesser extent left lower lobe opacities are not significantly changed in the interval and may be reflective of scarring and/or persistent atelectasis. Underlying infiltrate canno t be entirely excluded. There is mild increase in interstitial opacities. There is a trace right pleural effusion. No significant effusion on the left. No pneumothorax seen. There is mild enlargement of the heart may be related to technique. No acute osseous abnormalities seen. IMPRESSION: No definite acute cardiopulmonary process. Trace right pleural effusion, compared to the prior study pleural effusion is smaller. Mild cardiomegaly mild interstitial edema.
[2022-01-17] MEDS ORDERED: FUROSEMIDE 10 MG/ML 4 ML VIAL IV STA (21:53)
--- NOTE | 2022-01-17 22:35 | US ---
EXAMINATION TYPE: US venous doppler duplex LE DATE OF EXAM: 01/17/2022 10:12 PM COMPARISON: NONE CLINICAL HISTORY: Bilateral lower leg edema. Bilat leg edema SIDE PERFORMED: Bilateral TECHNIQUE: The lower extremity deep venous system is examined utilizing real time linear array sonog stephanie with graded compression, doppler sonography and color-flow sonography. VESSELS IMAGED: Common Femoral Vein Deep Femoral Vein Greater Saphenous Vein * Femoral Vein Popliteal Vein Small Saphenous Vein * Proximal Calf Veins (* superficial vessels) Right Leg: Negative for DVT Left Leg: Negative for DVT Lower extremity veins appear to have pulsatile flow IMPRESSION: No evidence of deep vein thrombosis in both legs.
[2022-01-17] MEDS ORDERED: SODIUM CHLORIDE 0.9% 1,000 ML IV SCH (22:45)
[2022-01-17] MEDS ORDERED: ACETAMINOPHEN TAB 325 MG TAB PO PRN (22:57)
[2022-01-17] MEDS ORDERED: NALOXONE 0.4 MG/ML 1 ML VIAL IV PRN (22:57)
[2022-01-17] MEDS: ENOXAPARIN 40 MG/0.4 ML SYRINGE SQ SCH (23:32)
[2022-01-18] MEDS ORDERED: SODIUM CHLORIDE 0.9% 1,000 ML IV SCH (05:00)
[2022-01-18 06:36] LABS: Basophils % (A) 1 %; Eosinophils % (A) 1 %; HGB 14.3 gm/dL (13.0-17.5); Lymphocytes % (A) 16 %; MCH 31.3 pg (25.0-35.0); MCHC 33.3 g/dL (31.0-37.0); MCV 94.1 fL (80.0-100.0); Mean Platelet Volume 10.3; Monocytes % (A) 11 %; Neutrophils % (A) 68 %; Platelet Count 129 k/uL (150-450); RBC 4.56 m/uL (4.30-5.90); RDW 13.9 % (11.5-15.5); WBC 4.6 k/uL (3.8-10.6)
[2022-01-18 06:37] LABS: Eosinophils # (A) 0.1 k/uL (0-0.7); Lymphocytes # (A) 0.7 k/uL (1.0-4.8); Monocytes # (A) 0.5 k/uL (0-1.0); Neutrophils # (A) 3.1 k/uL (1.3-7.7)
[2022-01-18 06:49] LABS: ALT 40 U/L (4-49); AST 33 U/L (17-59); African American GFR (CKD) >90 (>60 ml/min/1.73 sqM); Alkaline Phosphatase 178 U/L (38-126); Anion Gap 12 mmol/L; Blood Urea Nitrogen 27 mg/dL (9-20); Calcium 8.9 mg/dL (8.4-10.2); Carbon Dioxide 25 mmol/L (22-30); Chloride 90 mmol/L (98-107); Glucose 114 mg/dL (74-99); Magnesium 1.9 mg/dL (1.6-2.3); Non-African American GFR(CKD) 78 (>60 ml/min/1.73 sqM); Phosphorus 3.9 mg/dL (2.5-4.5); Potassium 4.5 mmol/L (3.5-5.1); Sodium 127 mmol/L (137-145); Total Bilirubin 1.9 mg/dL (0.2-1.3); Total Protein 7.4 g/dL (6.3-8.2)
[2022-01-18] MEDS: ENOXAPARIN 40 MG/0.4 ML SYRINGE SQ SCH (08:09)
--- NOTE | 2022-01-18 09:52 | P.HPIM ---
History of Present Illness This is a pleasant 66 years old male with past medical history of Coronary Artery Disease,Heart Failure, Hyperlipidemia, R lung cancer 14 years ago/treated with chemo and radiation/sees Dr. Escobar, cardiomegaly, lower extremity edema, pt has had pericardiacentesis. Patient presents because of increased swelling of both legs. 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 Mcgarry recently cut down to 20 mg twice daily. He is also complaining of from shortness of breath but denies chest pain No abdominal pain or diarrhea recur vomiting. No dysuria but he states that's lately his urine has been dribbling. However after he got Lasix dose in the ER he voided a lot He denies headache weakness or numbness. No dizziness. He quit smoking 14 years ago. He drinks only on New 's June's. No illicit drugs. He is not on home oxygen. Currently on 2 L oxygen via nasal cannula saturating 99%. He is afebrile. CBC is unremarkable except for mild thrombocytopenia 129. Also mild lymphopenia 0.7. Sodium 122 improved to 127 this morning. Creatinine 0.8 and today 1.0. Glucose controlled. Bilirubin 1.9. AST and ALT are normal. ProBNP is 7800 troponin 0.02. EKG showing sinus rhythm at [address]-T changes Chest x-ray: No definite acute cardiopulmonary process. Trace right pleural effusion. Mild cardiomegaly and mild interstitial edema Doppler of the legs is negative for DVT In the emergency room he received 1 dose of Lasix 40 mg and placed on normal saline 75 mL/h. Lovenox 40 mg daily. Review of Systems CONSTITUTIONAL: No fever, no malaise, no fatigue. HEENT: No recent visual problems or hearing problems. Denied any sore throat. CARDIOVASCULAR: No orthopnea, PND, no palpitations, no syncope. PULMONARY: No chest wall tenderness, no hemoptysis. GASTROINTESTINAL: No diarrhea, no nausea, no vomiting, no abdominal pain. Normoactive bowel sounds. NEUROLOGICAL: No headaches, no weakness, no numbness. HEMATOLOGICAL: Denies any bleeding or petechiae. GENITOURINARY: Denies any burning micturition, frequency, or urgency. MUSCULOSKELETAL/RHEUMATOLOGICAL: Denies any joint pain, swelling, or any muscle pain. ENDOCRINE: Denies any polyuria or polydipsia. Past Medical History Past Medical History: Coronary Artery Disease (CAD), Cancer, Heart Failure, Hyperlipidemia Additional Past Medical History / Comment(s): Pt states recent cardiac cath 12/19/21 showed 2 coronary blockages and a "bad valve" which is to be evaluated by MRI at [facility] soon, R lung cancer 14 years ago/treated with chemo and radiation/sees Dr. Escobar, cardiomegaly, lower extremity edema, pt has had pericardiacentesis. History of Any Multi-Drug Resistant Organisms: None Reported Past Surgical History: Heart Catheterization, Orthopedic Surgery Additional Past Surgical History / Comment(s): 12/19/21 R/L cardiac cath, a ttempted CHINO, L foot "reattached" and has hardware, colonoscopy. Past Anesthesia/Blood Transfusion Reactions: No Reported Reaction Past Psychological History: No Psychological Hx Reported Smoking Status: Former smoker Past Alcohol Use History: None Reported Past Drug Use History: None Reported - Past Family History Mother Family Medical History: Cancer Father Family Medical History: No Reported History Medications and Allergies Home Medications Medication Instructions Recorded Confirmed Type Aspirin 81 mg PO DAILY 30 Days #30 tab 01/02/22 01/17/22 Rx Losartan [Cozaar] 12.5 mg PO DAILY 60 Days #30 tab 01/02/22 01/17/22 Rx Furosemide [Lasix] 20 mg PO BID@0900,1600 01/17/22 01/17/22 History Potassium Chloride [Klor-Con 20] 20 meq PO W/SUPPER 01/17/22 01/17/22 History carvediloL [Coreg] 3.125 mg PO BID-W/MEALS 01/17/22 01/17/22 History Allergies Allergy/AdvReac Type Severity Reaction Status Date / Time No Known Allergies Allergy Verified 01/17/22 21:11 Physical Exam Vitals: Vital Signs Temp Pulse Pulse Resp BP BP Pulse Ox 01/17/22 23:55 97.8 F 99 20 110/72 99 01/17/22 23:34 89 18 109/71 97 01/17/22 21:40 94 18 99/67 97 01/17/22 19:18 97.7 F 93 18 91/58 98 Intake and Output 01/17/22 01/17/22 01/18/22 14:59 22:59 06:59 Other: Voiding Method Toilet Weight 71.894 kg 71.894 kg GENERAL: The patient is alert and oriented x3, not in any acute distress. Well developed, well nourished. HEENT: Pupils are round and equally reacting to light. EOMI. No scleral icterus. No conjunctival pallor. Normocephalic, atraumatic. No pharyngeal erythema. No thyromegaly. CARDIOVASCULAR: S1 and S2 present. No murmurs, rubs, or gallops. PULMONARY: Chest is clear to auscultation, no wheezing or crackles. ABDOMEN: Soft, nontender, nondistended, normoactive bowel sounds. No palpable organomegaly. MUSCULOSKELETAL: No joint swelling or deformity. -EXTREMITIES: No cyanosis, clubbing, or pedal edema. Bilateral leg swelling, nonpitting NEUROLOGICAL: Gross neurological examination did not reveal any focal deficits. SKIN: No rashes. No petechiae Results CBC & Chem 7: 01/18/22 06:07 01/18/22 06:07 Labs: Abnormal Lab Results - Last 24 Hours (Table) 01/17/22 01/17/22 Range/Units 19:26 19:26 Plt Count 128 L (150-450) k/uL Lymphocytes # 0.8 L (1.0-4.8) k/uL Sodium 122 L (137-145) mmol/L Chloride 90 L (98-107) mmol/L BUN 25 H (9-20) mg/dL Glucose 115 H (74-99) mg/dL Total Bilirubin 1.7 H (0.2-1.3) mg/dL Alkaline Phosphatase 176 H (38-126) U/L Thrombosis Risk Factor Assmnt - Choose All That Apply Any of the Below Risk Factors Present?: Yes Each Factor Represents 1 point: History of prior major surgery (<1month), Obesity (BMI >25), Swollen legs (current) Other Risk Factors: Yes Each Risk Factor Represents 2 Points: Age 61-74 years, Malignancy Other congenital or acquired thrombophilia - If yes, enter type in comment: No Thrombosis Risk Factor Assessment Total Risk Factor Score: 7 Thrombosis Risk Factor Assessment Level: High Risk Assessment and Plan Assessment: Hyponatremia While thrombocytopenia Chronic congestive heart failure Hyperlipidemia History of right lung cancer 14 years ago Cardiomegaly Bilateral leg edema Plan: This is a pleasant 66 years old male who presents with leg swelling and hyponatremia Continue with normal saline and monitor sodium level Nephrology and cardiology consult Labs and medication were reviewed.. Continue same treatment. Continue with symptomatic treatment. Resume home medication. Monitor lytes and vitals. DVT and GI prophylaxis. Further recommendations depends on the clinical course of the patient DVT prophylaxis: Subcutaneous Lovenox GI Prophylaxis: Pepcid PT/OT: Pending Prognosis is guarded
[2022-01-18] MEDS: ASPIRIN 81 MG PO SCH (11:04)
[2022-01-18] MEDS: carvediloL 3.125 MG TAB PO SCH ×2 (11:04→18:04)
[2022-01-18] MEDS ORDERED: FUROSEMIDE 10 MG/ML 4 ML VIAL IV STA (11:05)
--- NOTE | 2022-01-18 12:31 | P.CRDCN ---
History of Present Illness Consult date: 01/18/22 History of present illness: HISTORY OF PRESENT ILLNESS: This is a 66-year-old male with a past medical history significant for coronary artery disease, mitral regurgitation, lung cancer with previous radiation and chemotherapy, and congestive heart failure. Patient follows in the office with Dr. Oliva. We have been asked to see the patient in consultation for congestive heart failure. Patient examined at the bedside. Patient states he presented to the hospital with a chief complaint of increased lower extremity edema. The patient was evaluated in the office at the end of December. The patient states his Lasix was decreased from 40 mg twice a day to 20 mg twice a day. He states he has been compliant with his medications. He also reports she has been compliant with a low-sodium diet. He denies having any shortness of breath. He denies any fever or chills. Denies any cough or congestion. He denies any chest pain or pressure. The patient underwent cardiac catheterization in December 2001 revealing 70% distal LAD stenosis and 60% distal RCA stenosis. Patient was also found to have an ulcerated plaque in the left main. CHINO was attempted at that time but was aborted due to esophageal stricture. The patient states he underwent cardiac MRI at [facility] earlier this week to evaluate the severity of his MR. * EKG reveals sinus mechanism with left bundle branch block * Chest xray no definite acute cardiopulmonary process. Trace right pleural effusion. Myocardial megaly with mild interstitial edema. * Laboratory data: WBC 4.6. Hemoglobin 14.3. Platelet count 129. Sodium on admission 122. Repeat 127. BUN 27. Creatinine 1.0. Magnesium 1.9. Troponin negative 1. ProBNP 7800. * Current home cardiac medications include aspirin 81 mg daily, Lasix 20 mg twice a day, losartan 12.5 mg daily, carvedilol 3.125 mg twice a day * Most recent echocardiogram obtained in November 2021 revealing ejection fraction 40%, moderate AR, moderate TR, moderate to severe MR REVIEW OF SYSTEMS: At the time of my exam: CONSTITUTIONAL: Denies fever or chills. HEENT: Denies blurred vision, vision changes, or eye pain. Denies hemoptysis CARDIOVASCULAR: Denies chest pain. Denies orthopnea. Denies PND. Denies palpitations RESPIRATORY: Denies shortness of breath. GASTROINTESTINAL: Denies abdominal pain. Denies nausea or vomiting. HEMATOLOGIC: Denies bleeding disorders. GENITOURINARY: Denies any blood in urine. SKIN: Denies pruitis. Denies rash. PHYSICAL EXAM: VITAL SIGNS: Reviewed. GENERAL: Well-developed in no acute distress. HEENT: Head is normocephalic. Pupils are equal, round. Sclerae anicteric. Mucous membranes of the mouth are moist. Neck supple. No JVD or thyromegaly LUNGS: Respirations even and unlabored. Lungs diminished at right lower base. HEART: Regular rate and rhythm. S1 and S2 heard. Systolic murmur noted. ABDOMEN: Soft. Nondistended. Nontender. EXTREMITIES: Normal range of motion. No clubbing or cyanosis. Peripheral pulses intact. 2-3+ bilateral lower extremity edema NEUROLOGIC: Awake and alert. Oriented x 3. ASSESSMENT: Increased lower extremity edema Acute on chronic congestive heart failure with reduced EF, 40% Hyponatremia Valvular heart disease Coronary artery disease History of lung cancer with previous radiation and chemotherapy PLAN: Continue current cardiac medications Monitor sodium levels. Nephrology following. Patient received IV lasix x 1 dose today per nephrology Begin Lasix 40mg IV daily Repeat BNP tomorrow Obtain records of cardiac MRI performed at [place] Further recommendations pending patient course Nurse practitioner note has been reviewed by physician. Signing provider agrees with the documented findings, assessment, and plan of care. Past Medical History Past Medical History: Coronary Artery Disease (CAD), Cancer, Heart Failure, Hyperlipidemia Additional Past Medical History / Comment(s): Pt states recent cardiac cath 12/19/21 showed 2 coronary blockages and a "bad valve" which is to be evaluated by MRI at [facility] soon, R lung cancer 14 years ago/treated with chemo and radiation/sees Dr. Escobar, cardiomegaly, lower extremity edema, pt has had pe ricardiacentesis. History of Any Multi-Drug Resistant Organisms: None Reported Past Surgical History: Heart Catheterization, Orthopedic Surgery Additional Past Surgical History / Comment(s): 12/19/21 R/L cardiac cath, attempted CHINO, L foot "reattached" and has hardware, colonoscopy. Past Anesthesia/Blood Transfusion Reactions: No Reported Reaction Past Psychological History: No Psychological Hx Reported Smoking Status: Former smoker Past Alcohol Use History: None Reported Past Drug Use History: None Reported - Past Family History Mother Family Medical History: Cancer Father Family Medical History: No Reported History Medications and Allergies Home Medications Medication Instructions Recorded Confirmed Type Aspirin 81 mg PO DAILY 30 Days #30 tab 01/02/22 01/17/22 Rx Losartan [Cozaar] 12.5 mg PO DAILY 60 Days #30 tab 01/02/22 01/17/22 Rx Furosemide [Lasix] 20 mg PO BID@0900,1600 01/17/22 01/17/22 History Potassium Chloride [Klor-Con 20] 20 meq PO W/SUPPER 01/17/22 01/17/22 History carvediloL [Coreg] 3.125 mg PO BID-W/MEALS 01/17/22 01/17/22 History Allergies Allergy/AdvReac Type Severity Reaction Status Date / Time No Known Allergies Allergy Verified 01/17/22 21:11 Physical Exam Vitals: Vital Signs Temp Pulse Pulse Resp BP BP Pulse Ox 01/18/22 08:00 97.6 F 100 20 110/71 96 01/18/22 05:23 97.7 F 96 20 94/61 95 01/17/22 23:55 97.8 F 99 20 110/72 99 01/17/22 23:34 89 18 109/71 97 01/17/22 21:40 94 18 99/67 97 01/17/22 19:18 97.7 F 93 18 91/58 98 Intake and Output 01/17/22 01/18/22 01/18/22 22:59 06:59 14:59 Intake Total 1625 520 Output Total 800 Balance 825 520 Intake: Intake, IV Titration 1325 Amount Sodium Chloride 0.9% 1, 1325 000 ml @ 75 mls/hr IV . [id number] [facility] Rx#:[id number] Oral 300 520 Output: Urine 800 Other: Voiding Method Toilet # Bowel Movements 1 Weight 71.894 kg 71 kg Results 01/18/22 06:07 01/18/22 06:07 Cardiac Enzymes 01/17/22 01/17/22 01/18/22 Range/Units 19:26 19:26 06:07 AST 33 33 (17-59) U/L Troponin I 0.020 (0.000-0.034) ng/mL CBC 01/17/22 01/18/22 Range/Units 19:26 06:07 WBC 5.3 4.6 (3.8-10.6) k/uL RBC 4.52 4.56 (4.30-5.90) m/uL Hgb 13.9 14.3 (13.0-17.5) gm/dL Hct 41.4 43.0 (39.0-53.0) % Plt Count 128 L 129 L (150-450) k/uL Comprehensive Metabolic Panel 01/17/22 01/18/22 Range/Units 19:26 06:07 Sodium 122 L 127 L (137-145) mmol/L Potassium 4.9 4.5 (3.5-5.1) mmol/L Chloride 90 L 90 L (98-107) mmol/L Carbon Dioxide 22 25 (22-30) mmol/L BUN 25 H 27 H (9-20) mg/dL Creatinine 0.87 1.00 (0.66-1.25) mg/dL Glucose 115 H 114 H (74-99) mg/dL Calcium 8.9 8.9 (8.4-10.2) mg/dL AST 33 33 (17-59) U/L ALT 41 40 (4-49) U/L Alkaline Phosphatase 176 H 178 H (38-126) U/L Total Protein 7.4 7.4 (6.3-8.2) g/dL Albumin 4.1 4.0 (3.5-5.0) g/dL Current Medications Generic Name Dose Route Start Last Admin Trade Name Freq PRN Reason Stop Dose Admin Acetaminophen 650 mg 01/17/22 22:57 Acetaminophen Tab 325 Mg Tab PO Q6HR PRN Mild Pain or Fever > 100.5 Aspirin 81 mg 01/18/22 10:00 01/18/22 11:04 Aspirin 81 Mg PO 81 mg DAILY MARIELLA Administration Carvedilol 3.125 mg 01/18/22 10:00 01/18/22 11:04 Carvedilol 3.125 Mg Tab PO 3.125 mg BID-W/MEALS MARIELLA Administration Enoxaparin Sodium 40 mg 01/17/22 23:15 01/18/22 08:09 Enoxaparin 40 Mg/0.4 Ml Syringe SQ 40 mg DAILY MARIELLA Administration Famotidine 20 mg 01/18/22 21:00 Famotidine 20 Mg/2 Ml Vial IV Q12HR [facility] Losartan Potassium 12.5 mg 01/19/22 09:00 Losartan 25 Mg Tab PO DAILY [facility] Naloxone HCl 0.2 mg 01/17/22 22:57 Naloxone 0.4 Mg/Ml 1 Ml Vial IV Q2M PRN Opioid Reversal Intake and Output 01/17/22 01/18/22 01/18/22 22:59 06:59 14:59 Intake Total 1625 520 Output Total 800 Balance 825 520 Intake: Intake, IV Titration 1325 Amount Sodium Chloride 0.9% 1, 1325 000 ml @ 75 mls/hr IV . [id number] [facility] Rx#:[id number] Oral 300 520 Output: Urine 800 Other: Voiding Method Toilet # Bowel Movements 1 Weight 71.894 kg 71 kg 01/18/22 06:07 01/18/22 06:07
--- NOTE | 2022-01-18 14:26 | P.NPCON ---
History of Present Illness - History of Present Illness Patient is a 66-year-old male with history of coronary artery disease, CHF, lung cancer 14 years ago treated with chemo and radiation therapy. Patient is admitted to the hospital with complaints of increased lower extremity swelling. He has also been complaining of shortness of breath. Patient states that his Lasix was recently decreased. No history of fever chills nausea vomiting or abdominal pain Sodium was 122 on admission and it is 127 today. Patient received a dose of IV Lasix however he is also maintained on saline at 75 mL an hour. Chest x-ray from admission shows trace right pleural effusion mild cardiomegaly and interstitial edema. No new medications started recently. Review of Systems As per HPI Past Medical History Past Medical History: Coronary Artery Disease (CAD), Cancer, Heart Failure, Hyperlipidemia Additional Past Medical History / Comment(s): Pt states recent cardiac cath 12/19/21 showed 2 coronary blockages and a "bad valve" which is to be evaluated by MRI at [facility] soon, R lung cancer 14 years ago/treated with chemo and radiation/sees Dr. Escobar, cardiomegaly, lower extremity edema, pt has had pericardiacentesis. History of Any Multi-Drug Resistant Organisms: None Reported Past Surgical History: Heart Catheterization, Orthopedic Surgery Additional Past Surgical History / Comment(s): 12/19/21 R/L cardiac cath, attempted CHINO, L foot "reattached" and has hardware, colonoscopy. Past Anesthesia/Blood Transfusion Reactions: No Reported Reaction Past Psychological History: No Psychological Hx Reported Smoking Status: Former smoker Past Alcohol Use History: None Reported Past Drug Use History: None Reported - Past Family History Mother Family Medical History: Cancer Father Family Medical History: No Reported History Medications and Allergies Home Medications Medication Instructions Recorded Confirmed Type Aspirin 81 mg PO DAILY 30 Days #30 tab 01/02/22 01/17/22 Rx Losartan [Cozaar] 12.5 mg PO DAILY 60 Days #30 tab 01/02/22 01/17/22 Rx Furosemide [Lasix] 20 mg PO BID@0900,1600 01/17/22 01/17/22 History Potassium Chloride [Klor-Con 20] 20 meq PO W/SUPPER 01/17/22 01/17/22 History carvediloL [Coreg] 3.125 mg PO BID-W/MEALS 01/17/22 01/17/22 History Allergies Allergy/AdvReac Type Severity Reaction Status Date / Time No Known Allergies Allergy Verified 01/17/22 21:11 Physical Exam Vitals: Vital Signs Temp Pulse Pulse Resp BP BP Pulse Ox 01/18/22 13:08 97.5 F L 94 16 98/97 95 01/18/22 08:00 97.6 F 100 20 110/71 96 01/18/22 05:23 97.7 F 96 20 94/61 95 01/17/22 23:55 97.8 F 99 20 110/72 99 01/17/22 23:34 89 18 109/71 97 01/17/22 21:40 94 18 99/67 97 01/17/22 19:18 97.7 F 93 18 91/58 98 Intake and Output 01/17/22 01/18/22 01/18/22 22:59 06:59 14:59 Intake Total 1625 520 Output Total 800 Balance 825 520 Intake: Intake, IV Titration 1325 Amount Sodium Chloride 0.9% 1, 1325 000 ml @ 75 mls/hr IV . [id number] [facility] Rx#:[id number] Oral 300 520 Output: Urine 800 Other: Voiding Method Toilet # Bowel Movements 1 Weight 71.894 kg 71 kg Awake, comfortable, not in any acute distress Alert oriented 3 Examination of the heart S1 and S2 Examination of lungs decreased breath sounds at the bases, minimal basal crackles heard Examination of the abdomen reveals it to be soft nontender Examination lower extremity shows 2+ edema bilaterally [employer] exam grossly intact Results - Lab Results Most recent lab results Calcium 8.9 mg/dL (8.4-10.2) 01/18/22 06:07 Phosphorus 3.9 mg/dL (2.5-4.5) 01/18/22 06:07 Magnesium 1.9 mg/dL (1.6-2.3) 01/18/22 06:07 01/18/22 06:07 01/18/22 06:07 Assessment and Plan Assessment: 1. Hyponatremia, hypervolemic, improved with Lasix however patient is also maintained on saline. I will continue to diurese patient and hold off on the IV fluids. 2. CHF, echocardiogram not available ejection fraction. Probably systolic 3. History of lung cancer status post chemo and radiation therapy 4. Volume overload Plan: DC IV fluids Diuresis patient Repeat labs in a.m. Maintain salt and fluid restriction Monitor renal function as serum creatinine has increased and blood pressure remains low. Patient is maintained on angiotensin receptor blockers
[2022-01-18] MEDS: FUROSEMIDE 10 MG/ML 4 ML VIAL IV SCH (20:59)
[2022-01-18] MEDS: FAMOTIDINE 20 MG/2 ML VIAL IV SCH (20:59)
[2022-01-19] MEDS: FAMOTIDINE 20 MG/2 ML VIAL IV SCH ×2 (08:42→20:20)
[2022-01-19] MEDS: FUROSEMIDE 10 MG/ML 4 ML VIAL IV SCH ×2 (08:42→20:20)
[2022-01-19] MEDS: ENOXAPARIN 40 MG/0.4 ML SYRINGE SQ SCH (08:42)
[2022-01-19] MEDS: LOSARTAN 25 MG TAB PO SCH (08:42)
[2022-01-19] MEDS: ASPIRIN 81 MG PO SCH (08:43)
[2022-01-19] MEDS: carvediloL 3.125 MG TAB PO SCH ×2 (08:45→17:19)
[2022-01-19] MEDS ORDERED: FUROSEMIDE 10 MG/ML 4 ML VIAL IV SCH (09:00)
--- NOTE | 2022-01-19 10:08 | P.PN ---
Subjective Patient is seen for follow-up for hyponatremia which is hypervolemic. IV fluids were discontinued yesterday and patient was started on diuretics. This morning he states he is feeling better. Patient has been walking in the hallway, although he remains mildly short of breath. Sodium is pending from today Currently maintained on Lasix 40 mg IV twice a day Objective - Vital Signs Vital signs: Vital Signs Temp 98.0 F 01/19/22 08:45 Pulse 95 01/19/22 08:45 Resp 16 01/19/22 08:45 BP 100/65 01/19/22 08:45 Pulse Ox 97 01/19/22 08:45 Intake & Output 01/18/22 01/19/22 01/19/22 18:59 06:59 18:59 Intake Total 640 100 Balance 640 100 Weight 70.76 kg Intake: Oral 640 100 Other: Voiding Method Toilet Toilet Toilet # Bowel Movements 1 1 - Exam Patient is awake comfortable, not in any acute distress Alert and oriented 3 Examination of the heart S1 and S2 Examination lungs bilateral breath sounds are heard Abdomen is soft nontender Examination lower extremity shows 2+ edema HIGH RISK OB exam grossly intact - Labs CBC & Chem 7: 01/18/22 06:07 01/18/22 06:07 Assessment and Plan Assessment: 1. Hyponatremia, hypervolemic, maintained on IV Lasix. Labs pending from today 2. CHF, echocardiogram not available ejection fraction. Probably systolic 3. History of lung cancer status post chemo and radiation therapy 4. Volume overload, improving Plan: Continue IV Lasix Follow-up on labs from today Repeat labs in a.m. Maintain salt and fluid restriction.
--- NOTE | 2022-01-19 10:18 | P.PN ---
Subjective Progress Note Date: 01/19/22 HISTORY OF PRESENT ILLNESS: This is a 66-year-old male with a past medical history significant for coronary artery disease, mitral regurgitation, lung cancer with previous radiation and chemotherapy, and congestive heart failure. Patient follows in the office with Dr. Oliva. We have been asked to see the patient in consultation for congestive heart failure. Patient examined at the bedside. Patient states he presented to the hospital with a chief complaint of increased lower extremity edema. The patient was evaluated in the office at the end of December. The patient states his Lasix was decreased from 40 mg twice a day to 20 mg twice a day. He states he has been compliant with his medications. He also reports she has been compliant with a low-sodium diet. He denies having any shortness of breath. He denies any fever or chills. Denies any cough or congestion. He denies any chest pain or pressure. The patient underwent cardiac catheterization in December 2001 revealing 70% distal LAD stenosis and 60% distal RCA stenosis. Patient was also found to have an ulcerated plaque in the left main. CHINO was attempted at that time but was aborted due to esophageal stricture. The patient states he underwent cardiac MRI at [facility] earlier this week to evaluate the severity of his MR. * EKG reveals sinus mechanism with left bundle branch block * Chest xray no definite acute cardiopulmonary process. Trace right pleural effusion. Myocardial megaly with mild interstitial edema. * Laboratory data: WBC 4.6. Hemoglobin 14.3. Platelet count 129. Sodium on admission 122. Repeat 127. BUN 27. Creatinine 1.0. Magnesium 1.9. Troponin negative 1. ProBNP 7800. * Current home cardiac medications include aspirin 81 mg daily, Lasix 20 mg twice a day, losartan 12.5 mg daily, carvedilol 3.125 mg twice a day * Most recent echocardiogram obtained in November 2021 revealing ejection fraction 40%, moderate AR, moderate TR, moderate to severe MR 01/19/2022 Patient examined this morning. He is sitting up in the chair. Patient denies chest pain or pressure. He denies shortness of breath. He reports improvement in his lower extremity edema. He remains on IV Lasix. Vital signs are stable. Labs from this morning are pending. PHYSICAL EXAM: VITAL SIGNS: Reviewed. GENERAL: Well-developed in no acute distress. HEENT: Head is normocephalic. Pupils are equal, round. Sclerae anicteric. Mucous membranes of the mouth are moist. Neck supple. No JVD or thyromegaly LUNGS: Respirations even and unlabored. Lungs diminished at right lower base. HEART: Regular rate and rhythm. S1 and S2 heard. Systolic murmur noted. ABDOMEN: Soft. Nondistended. Nontender. EXTREMITIES: Normal range of motion. No clubbing or cyanosis. Peripheral pulses intact. 2+ bilateral lower extremity edema NEUROLOGIC: Awake and alert. Oriented x 3. ASSESSMENT: Increased lower extremity edema Acute on chronic congestive heart failure with reduced EF, 40% Hyponatremia Valvular heart disease Coronary artery disease History of lung cancer with previous radiation and chemotherapy PLAN: Continue current cardiac medications Monitor sodium levels. Nephrology following. Continue IV Lasix Awaiting records of cardiac MRI performed at [facility] Further recommendations pending patient course Nurse practitioner note has been reviewed by physician. Signing provider agrees with the documented findings, assessment, and plan of care. Objective - Vital Signs Vital signs: Vital Signs Temp 98.0 F 01/19/22 08:45 Pulse 95 01/19/22 08:45 Resp 16 01/19/22 08:45 BP 100/65 01/19/22 08:45 Pulse Ox 97 01/19/22 08:45 Intake & Output 01/18/22 01/19/22 01/19/22 18:59 06:59 18:59 Intake Total 640 100 Balance 640 100 Weight 70.76 kg Intake: Oral 640 100 Other: Voiding Method Toilet Toilet Toilet # Bowel Movements 1 1 - Labs CBC & Chem 7: 01/18/22 06:07 01/18/22 06:07
[2022-01-19 12:16] LABS: African American GFR (CKD) 78.9 (60.0-200.0); Anion Gap 17.2 mmol/L (10.00-18.00); BUN/Creat Ratio 23.21 Ratio (12.00-20.00); Calcium 9.2 mg/dL (8.7-10.3); Non-African American GFR(CKD) 68.1 (60.0-200.0); Potassium 4.1 mmol/L (3.5-5.5)
[2022-01-19] MEDS ORDERED: FUROSEMIDE 10 MG/ML 4 ML VIAL IV STA (12:34)
--- NOTE | 2022-01-19 12:37 | P.PN ---
Subjective This is a pleasant 66 years old male with past medical history of Coronary Artery Disease,Heart Failure, Hyperlipidemia, R lung cancer 14 years ago/treated with chemo and radiation/sees Dr. Escobar, cardiomegaly, lower extremity edema, pt has had pericardiacentesis. Patient presents because of increased swelling of both legs. He is on Lasix 40 mg and his wedding designer Dr. Mcgarry recently cut down to 20 mg twice daily. He is also complaining of from shortness of breath but denies chest pain No abdominal pain or diarrhea recur vomiting. No dysuria but he states that's lately his urine has been dribbling. However after he got Lasix dose in the ER he voided a lot He denies headache weakness or numbness. No dizziness. He quit smoking 14 years ago. He drinks only on [place]. No illicit drugs. He is not on home oxygen. Currently on 2 L oxygen via nasal cannula saturating 99%. He is afebrile. CBC is unremarkable except for mild thrombocytopenia 129. Also mild lymphopenia 0.7. Sodium 122 improved to 127 this morning. Creatinine 0.8 and today 1.0. Glucose controlled. Bilirubin 1.9. AST and ALT are normal. ProBNP is 7800 troponin 0.02. EKG showing sinus rhythm at [address]-T changes Chest x-ray: No definite acute cardiopulmonary process. Trace right pleural effusion. Mild cardiomegaly and mild interstitial edema Doppler of the legs is negative for DVT In the emergency room he received 1 dose of Lasix 40 mg and placed on normal saline 75 mL/h. Lovenox 40 mg daily. 01/19/2022 Patient awake and alert, no more symptoms, no significant dyspnea or chest pain. He still has bilateral leg swelling Hemodynamically stable Sodium is same as yesterday at 127. Given 1 extra dose of IV Lasix 40 mg and continue with 40 mg twice a day Continue with fluid restriction 1200 mL per day Objective - Vital Signs Vital signs: Vital Signs Temp 98.0 F 01/19/22 08:45 Pulse 95 01/19/22 08:45 Resp 16 01/19/22 08:45 BP 100/65 01/19/22 08:45 Pulse Ox 97 01/19/22 10:16 Intake & Output 01/18/22 01/19/22 01/19/22 18:59 06:59 18:59 Intake Total 640 100 Balance 640 100 Weight 70.76 kg Intake: Oral 640 100 Other: Voiding Method Toilet Toilet Toilet # Bowel Movements 1 1 - Exam GENERAL: The patient is alert and oriented x3, not in any acute distress. Well developed, well nourished. HEENT: Pupils are round and equally reacting to light. EOMI. No scleral icterus. No conjunctival pallor. Normocephalic, atraumatic. No pharyngeal erythema. No thyromegaly. CARDIOVASCULAR: S1 and S2 present. No murmurs, rubs, or gallops. PULMONARY: Chest is clear to auscultation, no wheezing or crackles. ABDOMEN: Soft, nontender, nondistended, normoactive bowel sounds. No palpable organomegaly. MUSCULOSKELETAL: No joint swelling or deformity. -EXTREMITIES: No cyanosis, clubbing, . Bilateral pitting leg edema. NEUROLOGICAL: Gross neurological examination did not reveal any focal deficits. SKIN: No rashes. no petechiae. - Labs CBC & Chem 7: 01/18/22 06:07 01/19/22 06:39 Labs: Abnormal Lab Results - Last 24 Hours (Table) 01/19/22 Range/Units 06:39 Sodium 127 L (135-145) mmol/L Chloride 88 L (96-109) mmol/L BUN/Creatinine Ratio 23.21 H (12.00-20.00) Ratio Glucose 121 H (70-110) mg/dL Assessment and Plan Assessment: Hyponatremia While thrombocytopenia Chronic congestive heart failure Hyperlipidemia History of right lung cancer 14 years ago Cardiomegaly Bilateral leg edema Plan: This is a pleasant 66 years old male who presents with leg swelling and hyponatremia Continue with normal saline and monitor sodium level Nephrology and cardiology consult Labs and medication were reviewed.. Continue same treatment. Continue with symptomatic treatment. Resume home medication. Monitor lytes and vitals. DVT and GI prophylaxis. Further recommendations depends on the clinical course of the patient DVT prophylaxis: Subcutaneous Lovenox GI Prophylaxis: Pepcid PT/OT: Pending Prognosis is guarded
[2022-01-19] MEDS ORDERED: TOLVAPTAN 15 MG 1/2 TABLET PO ONE (14:00)
[2022-01-20 08:12] VITALS: RESP 18
[2022-01-20] MEDS: carvediloL 3.125 MG TAB PO SCH (08:29)
--- NOTE | 2022-01-20 08:30 | P.PN ---
Subjective Patient is seen in follow-up for hyponatremia. He is maintained on IV Lasix 40 mg twice daily and also received a dose of Samsca 15 mg yesterday. Edema is improving. Denies chest pain or shortness of breath. On room air. Oral intake is good. Vital signs are stable. General: Awake and alert. No acute distress. HEENT: Head exam is unremarkable. LUNGS: Breath sounds decreased. HEART: Rate and Rhythm are regular. ABDOMEN: Soft, no distention. EXTREMITITES: 1+ edema. Objective - Vital Signs Vital signs: Vital Signs Temp 98.0 F 01/20/22 08:09 Pulse 90 01/20/22 08:09 Resp 18 01/20/22 08:09 BP 101/63 01/20/22 08:09 Pulse Ox 97 01/20/22 05:00 Intake & Output 01/19/22 01/20/22 01/20/22 18:59 06:59 18:59 Intake Total 1236 480 Balance 1236 480 Weight 68.7 kg Intake: Oral 1236 480 Other: Voiding Method Toilet Toilet # Voids 2 # Bowel Movements 1 - Labs CBC & Chem 7: 01/18/22 06:07 01/19/22 06:39 Labs: Abnormal Lab Results - Last 24 Hours (Table) 01/19/22 Range/Units 06:39 Sodium 127 L (135-145) mmol/L Chloride 88 L (96-109) mmol/L BUN/Creatinine Ratio 23.21 H (12.00-20.00) Ratio Glucose 121 H (70-110) mg/dL Assessment and Plan Plan: Assessment: 1. Hypervolemic hyponatremia. On IV Lasix. Received a dose of Samsca yesterday. Sodium level 127 as of yesterday. 2. Acute on chronic systolic CHF with ejection fraction of 40%. 3. Volume overload. 4. Coronary artery disease. Plan: Maintain IV Lasix. Encouraged oral intake. Maintain low salt diet and fluid restriction. Follow-up morning labs. Check TSH.
[2022-01-20] MEDS: ASPIRIN 81 MG PO SCH (10:01)
[2022-01-20] MEDS: ENOXAPARIN 40 MG/0.4 ML SYRINGE SQ SCH (10:02)
[2022-01-20] MEDS: FAMOTIDINE 20 MG/2 ML VIAL IV SCH (10:02)
[2022-01-20] MEDS: LOSARTAN 25 MG TAB PO SCH (10:02)
[2022-01-20] MEDS: FUROSEMIDE 10 MG/ML 4 ML VIAL IV SCH (10:02)
[2022-01-20 11:42] VITALS: BP 106/70; PULSE 92; TEMP 97.9
[2022-01-20 12:07] LABS: African American GFR (CKD) 84 (>60 ml/min/1.73 sqM); Anion Gap 7 mmol/L; Blood Urea Nitrogen 24 mg/dL (9-20); Calcium 9.1 mg/dL (8.4-10.2); Carbon Dioxide 35 mmol/L (22-30); Chloride 96 mmol/L (98-107); Glucose 201 mg/dL (74-99); Magnesium 2.2 mg/dL (1.6-2.3); Non-African American GFR(CKD) 73 (>60 ml/min/1.73 sqM); Potassium 3.4 mmol/L (3.5-5.1); Sodium 138 mmol/L (137-145)
--- NOTE | 2022-01-20 12:37 | P.PN ---
Subjective Progress Note Date: 01/20/22 HISTORY OF PRESENT ILLNESS: This is a 66-year-old male with a past medical history significant for coronary artery disease, mitral regurgitation, lung cancer with previous radiation and chemotherapy, and congestive heart failure. Patient follows in the office with Dr. Oliva. We have been asked to see the patient in consultation for congestive heart failure. Patient examined at the bedside. Patient states he presented to the hospital with a chief complaint of increased lower extremity edema. The patient was evaluated in the office at the end of December. The patient states his Lasix was decreased from 40 mg twice a day to 20 mg twice a day. He states he has been compliant with his medications. He also reports she has been compliant with a low-sodium diet. He denies having any shortness of breath. He denies any fever or chills. Denies any cough or congestion. He denies any chest pain or pressure. The patient underwent cardiac catheterization in December 2001 revealing 70% distal LAD stenosis and 60% distal RCA stenosis. Patient was also found to have an ulcerated plaque in the left main. CHINO was attempted at that time but was aborted due to esophageal stricture. The patient states he underwent cardiac MRI at [facility] earlier this week to evaluate the severity of his MR. * EKG reveals sinus mechanism with left bundle branch block * Chest xray no definite acute cardiopulmonary process. Trace right pleural effusion. Myocardial megaly with mild interstitial edema. * Laboratory data: WBC 4.6. Hemoglobin 14.3. Platelet count 129. Sodium on admission 122. Repeat 127. BUN 27. Creatinine 1.0. Magnesium 1.9. Troponin negative 1. ProBNP 7800. * Current home cardiac medications include aspirin 81 mg daily, Lasix 20 mg twice a day, losartan 12.5 mg daily, carvedilol 3.125 mg twice a day * Most recent echocardiogram obtained in November 2021 revealing ejection fraction 40%, moderate AR, moderate TR, moderate to severe MR 01/19/2022 Patient examined this morning. He is sitting up in the chair. Patient denies chest pain or pressure. He denies shortness of breath. He reports improvement in his lower extremity edema. He remains on IV Lasix. Vital signs are stable. Labs from this morning are pending. 01/20/2022 Patient is found sitting up in recliner and states his leg edema is improved. He denies any chest pain or pressure, no shortness of breath. He is currently on Lasix 40 mg IV twice daily continue by nephrology. Repeat blood work reveals sodium of 138, potassium 3. form will be replaced. Chloride 96, CO2 35, BUN 24 and creatinine 1.0. MRI report from [facility] has not yet been obtained. PHYSICAL EXAM: VITAL SIGNS: Reviewed. GENERAL: Well-developed in no acute distress. HEENT: Head is normocephalic. Pupils are equal, round. Sclerae anicteric. Mucous membranes of the mouth are moist. Neck supple. No JVD or thyromegaly LUNGS: Respirations even and unlabored. Lungs diminished at right lower base. HEART: Regular rate and rhythm. S1 and S2 heard. Systolic murmur noted. ABDOMEN: Soft. Nondistended. Nontender. EXTREMITIES: Normal range of motion. No clubbing or cyanosis. Peripheral pulses intact. 2+ bilateral lower extremity edema NEUROLOGIC: Awake and alert. Oriented x 3. ASSESSMENT: Increased lower extremity edema, improving Acute on chronic congestive heart failure with reduced EF, 40% Hyponatremia Valvular heart disease Coronary artery disease History of lung cancer with previous radiation and chemotherapy PLAN: Continue current cardiac medications Monitor sodium levels. Nephrology following. Continue IV Lasix Awaiting records of cardiac MRI performed at [facility] Further recommendations pending patient course Nurse practitioner note has been reviewed by physician. Signing provider agrees with the documented findings, assessment, and plan of care. Objective - Vital Signs Vital signs: Vital Signs Temp 98.0 F 01/20/22 08:09 Pulse 90 01/20/22 08:09 Resp 18 01/20/22 08:09 BP 101/63 01/20/22 08:09 Pulse Ox 97 01/20/22 05:00 Intake & Output 01/19/22 01/20/22 01/20/22 18:59 06:59 18:59 Intake Total 1236 480 Balance 1236 480 Weight 68.7 kg Intake: Oral 1236 480 Other: Voiding Method Toilet Toilet # Voids 2 # Bowel Movements 1 - Labs CBC & Chem 7: 01/18/22 06:07 01/20/22 11:39 Labs: Abnormal Lab Results - Last 24 Hours (Table) 01/19/22 Range/Units 06:39 Sodium 127 L (135-145) mmol/L Chloride 88 L (96-109) mmol/L BUN/Creatinine Ratio 23.21 H (12.00-20.00) Ratio Glucose 121 H (70-110) mg/dL
[2022-01-20] MEDS: POTASSIUM CHLORIDE ER 20 MEQ TAB.ER PO STA ×2 (14:09→14:10)
[2022-01-20] MEDS ORDERED: POTASSIUM CHLORIDE ER 20 MEQ TAB.ER PO STA (14:42)
--- NOTE | 2022-01-20 21:46 | P.DS ---
Providers Date of admission: 01/17/22 23:04 Attending physician: Richardson Burrows Consults: 01/17/22 22:57 Consult Physician Urgent Consulting Provider: Angel Oliva Consult Reason/Comments: Congestive heart failure, hypernatremia Do you want consulting provider notified?: Yes, Notify in am Consult Physician Urgent Consulting Provider: Brie Adrian Consult Reason/Comments: Hyponatremia Do you want consulting provider notified?: Yes Primary care physician: Cristy Ward Hospital Course: Diagnoses: Hyponatremia Acute on chronic systolic congestive heart failure Mild thrombocytopenia Hyperlipidemia History of right lung cancer 14 years ago Cardiomegaly Bilateral leg edema Hospital course: This is a pleasant 66 years old male with past medical history of Coronary Artery Disease,Heart Failure, Hyperlipidemia, R lung cancer 14 years ago/treated with chemo and radiation/sees Dr. Escobar, cardiomegaly, lower extremity edema, pt has had pericardiacentesis. Patient presents because of increased swelling of both legs. He is on Lasix 40 mg and his director of corporate marketing Dr. Mcgarry recently cut down to 20 mg twice daily. He is also complaining of from shortness of breath On admission his been evaluated by director of corporate marketing and mechanical applications engineer and found to have hypervolemic hyponatremia with sodium 122, patient has been treated with IV Lasix as well as received 1 dose of samsca, and his sodium improved today to 138 , his leg swelling improved but not completely resolved however he denies any dyspnea for the last 48 hours, no chest pain, no other complaints, no change in urine or bowel habits. No fever. Patient was cleared for discharge by director of corporate marketing and mechanical applications engineer today. Problems and management plan were discussed with the patient and he verbalized understanding and acceptance Patient was found stable and can be discharged home however he needs follow-up as an outpatient. Patient was instructed to follow up with PCP Dr. Ward within one week and patient agrees Patient was instructed to follow up with Dr. Mcgarry in 2-3 days and he told me he has appointment with him this coming Monday 06/25 that he gets to follow up with. Also patient was instructed to follow up with mechanical applications engineer Dr. Matthews/Dr. Adrian in one week and he agrees Physical exam Gen: patient is a AAOx3, no distress CVS: S1-S2, RRR, no murmur Lungs: B/L CTA, no wheezing Abdomen: soft, no distention, no tenderness, positive bowel sounds -Extremity: Mild bilateral pitting leg edema . No induration Time spent more than 35 minutes Patient Condition at Discharge: Stable Plan - Discharge Summary Discharge Rx Participant: No New Discharge Prescriptions: Continue Potassium Chloride [Klor-Con 20] 20 meq PO W/SUPPER Aspirin 81 mg PO DAILY 30 Days #30 tab Losartan [Cozaar] 12.5 mg PO DAILY 60 Days #30 tab carvediloL [Coreg] 3.125 mg PO BID-W/MEALS Furosemide [Lasix] 40 mg PO BID@0900,1600 #60 tab Discharge Medication List Aspirin 81 mg PO DAILY 30 Days #30 tab 01/02/22 [Rx] Losartan [Cozaar] 12.5 mg PO DAILY 60 Days #30 tab 01/02/22 [Rx] Potassium Chloride [Klor-Con 20] 20 meq PO W/SUPPER 01/17/22 [History] carvediloL [Coreg] 3.125 mg PO BID-W/MEALS 01/17/22 [History] Furosemide [Lasix] 40 mg PO BID@0900,1600 #60 tab 01/20/22 [Rx] Follow up Appointment(s)/Referral(s): Brie Adrian MD [STAFF PHYSICIAN] - 1 Week Angel Oliva MD [STAFF PHYSICIAN] - 3 Days Cristy Ward DO [Primary Care Provider] - 1-2 days Activity/Diet/Wound Care/Special Instructions: Heart healthy diet with fluid and salt restriction Activity is restricted until you see your doctor Discharge Disposition: HOME SELF-CARE
[2022-01-21] MEDS ORDERED: POTASSIUM CHLORIDE ER 20 MEQ TAB.ER PO SCH (09:00)
== END 2022-01-20 16:28 | disposition home or self-care (01) | DRG 640 ==
LOC: EC 17:49 → 5NMEDONC 23:04
PROVIDERS: ADMIT Hospitalist; ATTEND Hospitalist
DX: E87.1 Hypo-osmolality and hyponatremia (principal); I50.23 Acute on chronic systolic (congestive) heart failure; D69.6 Thrombocytopenia, unspecified; D72.810 Lymphocytopenia; E78.5 Hyperlipidemia, unspecified; I25.10 Atherosclerotic heart disease of native coronary artery without angina pectoris; I44.7 Left bundle-branch block, unspecified; I08.3 Combined rheumatic disorders of mitral, aortic and tricuspid valves; Z79.82 Long term (current) use of aspirin; Z79.899 Other long term (current) drug therapy; Z85.118 Personal history of other malignant neoplasm of bronchus and lung; Z87.891 Personal history of nicotine dependence; Z92.21 Personal history of antineoplastic chemotherapy; Z92.3 Personal history of irradiation; Z98.890 Other specified postprocedural states; Z80.9 Family history of malignant neoplasm, unspecified
CPT/HCPCS: 36415; 71046; 80048; 80053; 83735; 83880; 84100; 84443; 84484; 85025; 93005; 93970; 96374; 99285

== ENCOUNTER → 2022-01-29 | Outpatient (CLI) | payer MEDICARE, BC ==
--- NOTE | 2022-01-29 10:41 | FL ---
ESOPHOGRAM. HISTORY: Dysphagia Esophagram was performed per the air contrast technique. The patient swallowed barium and effervesce nt crystals without difficulty or delay. Esophageal peristalsis and motility appear to be within normal limits. There is luminal narrowing of the esophagus compatible with stricture involving its middle and distal one third. No obvious mass noted however direct visualization is advised. No hiatal hernia seen. Subsequently single contrast cervical esophagram was performed which fails demonstrate evidence for a spiration penetration or mass. IMPRESSION: There is luminal narrowing of the esophagus compatible with stricture involving its middl e and distal one third. No obvious mass noted however direct visualization is advised
== END | disposition home or self-care (01) ==
LOC: RADUSWWP 09:55
PROVIDERS: ATTEND Thoracic Surgery (Cardiothoracic Vascular Surgery)
DX: K22.89 Other specified disease of esophagus (principal)
CPT/HCPCS: 74220

== ENCOUNTER 2022-02-02 11:52 | Day surgery (SDC) | payer MEDICARE, BC ==
[2022-02-01 13:05] VITALS: BMI 26.8
[~2022-02-02 11:52] MED LIST changes: -ALPRAZolam 0.25 MG TAB PO PRN; -ALPRAZolam 0.5 MG TAB PO PRN; -ASPIRIN 325 MG TAB PO STA; -ATORVASTATIN 80 MG TAB PO STA; -HEPARIN SODIUM,PORCINE 10,000 UNIT in SODIUM CHLORIDE 0.9% 1,000 ML IRRIGATION PRN; -HEPARIN SODIUM,PORCINE 2,500 UNIT in SODIUM CHLORIDE 0.9% 250 ML IRRIGATION PRN; +LACTATED RINGERS 1,000 ML IV SCH; -NITROGLYCERIN SL TABS 0.4 MG TAB SUBLINGUAL PRN; -SODIUM CHLORIDE 0.9% 1,000 ML in EMPTY BAG 1 BAG IV SCH
[2022-02-02] MEDS ORDERED: PROPOFOL 10 MG/ML 20 ML VIAL IV ONE (13:05)
[2022-02-02] MEDS ORDERED: KETAMINE 10 MG/ML 20 ML VIAL ONE (13:05)
[2022-02-02] MEDS ORDERED: PHENYLEPHRINE-0.9% NACL SYG 1,000 MCG/10 ML SYRINGE ONE (13:05)
[2022-02-02] MEDS ORDERED: MIDAZOLAM 2 MG/2 ML VIAL ONE (13:05)
[2022-02-02] MEDS ORDERED: fentaNYL (PF) 50 MCG/ML 2 ML AMP ONE (13:05)
[2022-02-02] MEDS ORDERED: LIDOCAINE 1% INJ 10MG/ML (20 ML MDV) ONE (13:05)
--- NOTE | 2022-02-02 13:45 | P.OP ---
Date of Procedure: 02/02/22 Preoperative Diagnosis: Esophageal stricture Postoperative Diagnosis: Same Procedure(s) Performed: Esophagoscopy with serial esophageal dilatation under fluoroscopic guidance Anesthesia: MAC Surgeon: Da Mcgarry Estimated Blood Loss (ml): 3 IV fluids (ml): 100 Urine output (ml): 0 Pathology: none sent Condition: stable Disposition: PACU Indications for Procedure: 66-year-old male with previous radiation and chemotherapy treatment for lung cancer 10 years ago. Patient has known history of esophageal stricture and needs to cut his food into small bits in order to swallow properly. At this time found to have severe coronary artery disease as well as mitral and tricuspid regurgitation by surface echocardiography. Cardiology was unable to perform CHINO due to esophageal stricture. Barium swallow was obtained and confir med the presence of a distal esophageal stricture. Due to the need for cardiac surgery including mitral and tricuspid repair and anticipated benefit of intraoperative CHINO, esophageal dilatation was planned preoperatively. Operative Findings: Esophagoscope was passed easily to 30 cm and then would not pass further. There did not appear to be a tight stricture at this level. Description of Procedure: After IV sedation, the mouth was filled with lubrication and the endoscope passed into the proximal esophagus. It would not pass beyond 30 cm. A guidewire was passed distally to the distal esophagus under endoscopic and fluoroscopic guidance. Initially it would not pass further. We were able to gently slide the scope over the wire and visualized the distal esophagus and passed the wire safely into the stomach under guidance with the esophagoscope. The esophagoscope would not pass into the stomach. The esophagoscope was removed while maintaining the wire in the stomach under fluoroscopy. Serial dilatation was then performed over the wire using savory dilators starting with size 27-Palestinian up to size 42-Palestinian under fluoroscopic guidance. Dilators all passed easily until the 42-Palestinian which was snug. It was decided to quit at this point. 42-Palestinian dilator and wire were then removed and the scope was replaced. The scope now passed easily into the stomach. On withdrawing the scope although there were some bloody secretions present, there was no evidence of perforation. Patient tolerated the procedure well.
[2022-02-02 13:59] VITALS: TEMP 96.8
[2022-02-02 14:16] VITALS: RESP 18
--- NOTE | 2022-02-02 14:36 | FL ---
Fluoroscopy HISTORY: Pain 34 seconds fluoroscopy time supplied to the referring clinician. 1 intraoperative C-arm images docum ent the procedure. See dictated report from cardiothoracic surgery.
[2022-02-02 14:38] VITALS: BP 121/81; PULSE 87
--- NOTE | 2022-02-02 14:57 | XR ---
EXAMINATION TYPE: XR chest 1V portable DATE OF EXAM: 02/02/2022 COMPARISON: Chest x-ray 01/17/2022 HISTORY: Post endoscopy, esophageal stent TECHNIQUE: Single frontal view of the chest is obtained. FINDINGS: Patient is rotated. Apical pleural thickening on the right is again seen, abnormal attenua tion also again noted at the right lung base. Cardiac mediastinal silhouette is stable. Aorta is dens e. No evident pneumothorax. IMPRESSION: Rotated exam. Stent is not seen with certainty. Abnormal attenuation in the right thorax is again seen
== END 2022-02-02 15:14 | disposition home or self-care (01) ==
LOC: ORWHC2ENDO 11:52
PROVIDERS: ATTEND Thoracic Surgery (Cardiothoracic Vascular Surgery)
DX: K22.2 Esophageal obstruction (principal); I08.1 Rheumatic disorders of both mitral and tricuspid valves; I51.7 Cardiomegaly; I25.10 Atherosclerotic heart disease of native coronary artery without angina pectoris; I11.0 Hypertensive heart disease with heart failure; I50.9 Heart failure, unspecified; Z85.118 Personal history of other malignant neoplasm of bronchus and lung; Z92.21 Personal history of antineoplastic chemotherapy; Z97.2 Presence of dental prosthetic device (complete) (partial); Z92.3 Personal history of irradiation; Z86.79 Personal history of other diseases of the circulatory system; Z79.82 Long term (current) use of aspirin
CPT/HCPCS: 71045; 43453; J2250; J2001; J3010; J2370; J2704; 43248; 43249